=== PATIENT | female | born 1975 | race Caucasian/White ===

== ENCOUNTER 2019-06-25 07:57 | Outpatient (CLI) | payer OTHER, SELFPAY ==
--- NOTE | ~2019-06-25 | CT_ITS ---
EXAMINATION: CT soft tissue neck w con DATE: 06/25/2019 08:33 INDICATION: Left neck pain. Dysphagia. Neck mass. TECHNIQUE: Computed tomography (CT) of the neck was performed with 75 mL Omnipaque-350 intravenous co ntrast. Automated exposure control and iterative reconstruction technique were employed. The dose-adolfo gth product was 479.68 mGy-cm. COMPARISON: None FINDINGS: There are no pathologically enlarged lymph nodes. The cervical carotid arteries are normal. The oropharynx is normal. There is mild mucosal thickening in the ethmoid sinuses. There are carious lesions of teeth 1, 13, and 14. There are periapical lucencies at tooth 14. 15 is broken with periap ical lucencies. There is a carious lesion of tooth 16 with periapical lucencies. Tooth 17 is absent. Tooth 19 demonstrates a carious lesion and periapical lucencies. There is mild cervical spondylosis. IMPRESSION: 1. Dental disease. Reviewed, dictated and finalized at location A. ILL TALLY CLERK IMPRESSION: 1. Dental disease.
== END 2019-06-25 07:58 | disposition home or self-care (01) ==
DX: R22.1 Localized swelling, mass and lump, neck (principal); K08.9 Disorder of teeth and supporting structures, unspecified
CPT/HCPCS: 70491; Q9967

== ENCOUNTER 2020-06-15 07:40 | Outpatient (CLI) | payer OTHER, SELFPAY ==
--- NOTE | ~2020-06-15 | CT_ITS ---
EXAMINATION: CT abdomen pelvis w con EXAM DATE: 06/15/2020 09:29 INDICATION: Abdominal pain . TECHNIQUE: Spiral CT of the abdomen and pelvis was performed following intravenous injection of 100 m L Omnipaque 350. Axial, coronal and sagittal images were reviewed. The dose-length product (DLP) fo r this examination was 965.37 mGy-cm. The exposure was tailored according to patient size (auto mA e xposure control), and iterative reconstruction (ASIR) was used as additional dose reduction technique . There is no prior study for comparison. FINDINGS: The liver, spleen, adrenal glands and pancreas are unremarkable. Gallbladder is unremarkab le. No biliary obstruction. Portal and splenic veins are patent. Kidneys enhance symmetrically. T here is no hydronephrosis. The uterus is unremarkable. The bladder is unremarkable. There is no retroperitoneal or pelvic lymphadenopathy. There is mild scattered arteriosclerotic disease. The appendix is normal. The stomach and small bowel are unremarkable. There is expected amount of c olonic stool. No free intraperitoneal gas. The heart is normal in size. There are no pericardial or pleural effusions. The lung bases are unremarkable. There are no osteoblastic or osteolytic les ions identified. IMPRESSION: 1. No acute intra-abdominal findings. Reviewed, dictated and finalized at location A. [employer]
== END 2020-06-15 07:41 | disposition home or self-care (01) ==
PROVIDERS: PCP Nurse Practitioner Family; Visit Provider Obstetrics & Gynecology
DX: R10.9 Unspecified abdominal pain (principal)
CPT/HCPCS: 74177; Q9967

== ENCOUNTER 2020-11-20 15:57 | Emergency (ER) | payer OTHER, SELFPAY ==
[2020-11-20 16:08] VITALS: BP 140/82; PULSE 89; RESP 16; TEMP 37; O2SAT 100
--- NOTE | 2020-11-20 16:34 | ED.WOUNDLAC ---
HPI - Wound/Laceration General Chief Complaint: Wound/Laceration Stated Complaint: Cat bites Time Seen by Provider: 11/20/20 16:28 Source: patient and RN notes reviewed Mode of arrival: ambulatory Limitations: no limitations History of Present Illness HPI narrative: Patient presents today complaining of a cat bite to her right second finger that was sustained 4 hours prior to exam. Her own cat bit her while protecting it skins. Cat is up-to-date on vaccines. Patient was also bit on her left forearm and left thumb minorly. She is not up-to-date on her tetanus vaccine. She currently rates the pain in her right second finger 8/10 and has tried no interventions prior to arrival. Related Data Home Medications Medication Instructions Recorded Confirmed aspirin 81 mg PO DAILY 04/02/19 06/15/19 atorvastatin 10 mg PO DAILY 04/02/19 06/15/19 levothyroxine 11/20/20 medroxyprogesterone mg IM 11/20/20 Allergies Allergy/AdvReac Type Severity Reaction Status Date / Time indomethacin Allergy Unknown RASH Verified 06/15/19 17:12 methylprednisolone Allergy Unknown RASH Verified 06/15/19 17:12 Review of Systems Review of Systems: Narrative: CONSTITUTIONAL: Denies body aches, fever, chills, or sweats. EYES: Denies visual changes, redness, or discharge. ENT: Denies rhinorrhea, congestion, sore throat, or otalgia. CARDIOVASCULAR: Denies chest pain, palpitations, or edema. RESPIRATORY: Denies cough or dyspnea. GASTROINTESTINAL: Denies abdominal pain, nausea, vomiting, or diarrhea. GENITOURINARY: Denies dysuria or hematuria. SKIN: Denies rash, itching. + Cat bite MUSCULOSKELETAL: Denies back pain, or myalgia. NEUROLOGIC: Denies headache, numbness, tingling, or weakness. PSYCH: Denies depression or anxiety. [facility] Past Medical History Medical History (Updated 11/20/20 @ 16:37 by JEREMY Fernandez, ) Hypothyroidism Social History Social History Gender identity (if verbalized by the patient): Female Comments At time of signature, I have reviewed and agree with nursing past medical, surgical, social and family history unless otherwise noted. Please see nursing chart for further information. There is no relevant family history pertinent to the presenting complaint Exam Narrative: Exam Narrative: GENERAL: Well-appearing, well-nourished, and in no acute distress. HEAD: Normocephalic, atraumatic. EYES: EOMI. No redness or drainage. Conjunctivae normal. ENT: Mucous membranes pink and moist. NECK: Normal AROM. CHEST: No respiratory distress. EXTREMITIES: Normal range of motion. No edema. SKIN: Warm, dry, no rash. Capillary refill normal. Normal skin turgor. Minor scratch to left forearm and very superficial puncture wound to the left thumb. What seems to be superficial wounds to the dorsum and palmar aspects of the proximal phalanx of the right second finger. Right second finger is moderately edematous and erythematous and very painful to palpation. Distal sensation intact. Capillary refill normal. Range of motion is limited due to pain. NEURO: No focal deficits. Alert and oriented x3. Gait steady. PSYCH: Normal affect. No signs of depression or anxiety. Course Vital Signs Vital signs: Vital Signs Temperature 98.6 F 11/20/20 16:08 Pulse Rate 89 11/20/20 16:08 Respiratory Rate 16 11/20/20 16:08 Blood Pressure 140/82 11/20/20 16:08 Pulse Oximetry 100 11/20/20 16:08 Temperature 98.6 F 11/20/20 16:08 Pulse Rate 89 11/20/20 16:08 Respiratory Rate 16 11/20/20 16:08 Blood Pressure 140/82 11/20/20 16:08 Pulse Oximetry 100 11/20/20 16:08 Reviewed. Pt has been instructed to follow up with her PCP regarding her elevated blood pressure today. MDM - Wound/Laceration Differential Diagnosis Differential diagnosis: Likely laceration, abscess, avulsion of skin and other (Cat bite) Critical Care Time Critical Care Time Critic
[2020-11-20] MEDS: TETANUS,DIPHTHERIA,AC PERTUSSIS ADULT (0.5 ML) BOOSTRIX IM (16:41)
== END 2020-11-20 16:55 | disposition home or self-care (01) ==
PROVIDERS: Emergency Provider Nurse Practitioner; PCP Nurse Practitioner Family
DX: S61.250A Open bite of right index finger without damage to nail, initial encounter (principal); W55.01XA Bitten by cat, initial encounter; Z23 Encounter for immunization; E03.9 Hypothyroidism, unspecified; E78.00 Pure hypercholesterolemia, unspecified; I25.10 Atherosclerotic heart disease of native coronary artery without angina pectoris
CPT/HCPCS: 90471; 90715; 99213; G0463

== ENCOUNTER 2020-11-28 10:02 | Emergency (ER) | payer OTHER, SELFPAY ==
[2020-11-28 10:08] VITALS: BP 119/82; PULSE 92; RESP 18; TEMP 36.2; O2SAT 98
[2020-11-28 10:15] VITALS: BP 119/82; PULSE 92; RESP 18; TEMP 36.2; O2SAT 98
--- NOTE | 2020-11-28 10:24 | ED.URI ---
HPI - URI/Sore Throat General Chief Complaint: Upper Respiratory Infection Stated Complaint: Cough,Wheezing Time Seen by Provider: 11/28/20 10:14 Source: patient and RN notes reviewed Mode of arrival: ambulatory Limitations: no limitations History of Present Illness HPI Narrative: Patient presents today complaining of sneezing and runny nose that started 6 days ago. That has since mostly resolved. She has a cough and wheezing that started 4 days ago that is persisting. Denies fever, shortness of breath. She has since taken to home rapid COVID-19 test that were negative. States otherwise she feels fine. She has not been vaccinated against COVID-19. Reports history of reactive airway disease diagnosed by assigner. She has been occasionally using Vicks nasal inhaler as well as an albuterol inhaler without much relief. She is currently on day 8 of 10 of a course of Augmentin for cat bite. Patient states she goes camping in the [facility] every weekend. MD elicited complaint: cough Related Data Home Medications Medication Instructions Recorded Confirmed aspirin 81 mg PO DAILY 04/02/19 11/28/20 atorvastatin 10 mg PO DAILY 04/02/19 11/28/20 levothyroxine 150 mcg PO DAILY 11/20/20 11/28/20 medroxyprogesterone 150 mg IM [id number] 11/20/20 11/28/20 Allergies Allergy/AdvReac Type Severity Reaction Status Date / Time indomethacin Allergy Unknown RASH Verified 11/28/20 10:16 methylprednisolone Allergy Unknown RASH Verified 11/28/20 10:16 Review of Systems Review of Systems: Narrative: CONSTITUTIONAL: Denies body aches, fever, chills, or sweats. EYES: Denies visual changes, redness, or discharge. ENT: Denies rhinorrhea, congestion, sore throat, or otalgia. CARDIOVASCULAR: Denies chest pain, palpitations, or edema. RESPIRATORY: + Cough, wheezing GASTROINTESTINAL: Denies abdominal pain, nausea, vomiting, or diarrhea. GENITOURINARY: Denies dysuria or hematuria. SKIN: Denies rash, itching, or wounds. MUSCULOSKELETAL: Denies back pain, joint pain, or myalgia. NEUROLOGIC: Denies headache, numbness, tingling, or weakness. PSYCH: Denies depression or anxiety. [facility] Past Medical History Medical History (Updated 11/28/20 @ 10:28 by Ellen Roth, AUTO WHEEL ALIGNMENT SPECIALIST, ) High cholesterol Hypothyroidism Reactive airway disease Social History Social History (Updated 11/28/20 @ 10:26 by Ellen Roth, JEREMY, ) Smoking status: Current every day smoker Tobacco type: cigarettes Gender identity (if verbalized by the patient): Female Comments At time of signature, I have reviewed and agree with nursing past medical, surgical, social and family history unless otherwise noted. Please see nursing chart for further information. There is no relevant family history pertinent to the presenting complaint Exam Narrative: Exam Narrative: GENERAL: Well-appearing, well-nourished, and in no acute distress. HEAD: Normocephalic, atraumatic. EYES: EOMI. No redness or drainage. Conjunctivae normal. ENT: Mucous membranes pink and moist. Nares clear. No rhinorrhea. TMs normal bilaterally. Throat normal. Uvula midline. NECK: Normal AROM. Supple. No lymphadenopathy. CHEST: No respiratory distress. Slight inspiratory wheeze in the left upper lobe, otherwise clear. Frequent harsh cough noted. HEART: Regular rate and rhythm. No murmur appreciated. Normal peripheral pulses. EXTREMITIES: Normal range of motion. No edema. SKIN: Warm, dry, no rash. Capillary refill normal. Normal skin turgor. NEURO: No focal deficits. Alert and oriented x3. Gait steady. PSYCH: Normal affect. No signs of depression or anxiety. Course Vital Signs Vital signs: Vital Signs Temperature 97.1 F L 11/28/20 10:08 Pulse Rate 92 11/28/20 10:08 Respiratory Rate 18 11/28/20 10:08 Blood Pressure 119/82 11/28/20 10:08 Pulse Oximetry 98 11/28/20 10:08 Temperature 97.1 F L 11/28/20 10:15 Pulse Rate 92 11/28/20 10:15 Respiratory Rate 18 11/28/20 10
[2020-11-28] MEDS: IPRATROPIUM BR 0.02% INH SOLN 0.5 MG/2.5 ML VIAL INHALATION (10:30)
[2020-11-28] MEDS: ALBUTEROL SULFATE NEB 2.5 MG/3 ML INH INHALATION (10:30)
[2020-11-28 11:22] VITALS: PULSE 88; O2SAT 98
== END 2020-11-28 11:22 | disposition home or self-care (01) ==
PROVIDERS: Emergency Provider Nurse Practitioner; PCP Nurse Practitioner Family
DX: J40 Bronchitis, not specified as acute or chronic (principal); F17.210 Nicotine dependence, cigarettes, uncomplicated; E78.00 Pure hypercholesterolemia, unspecified; E03.9 Hypothyroidism, unspecified
CPT/HCPCS: 94640; 99213; G0463

== ENCOUNTER 2021-02-15 18:32 | Emergency (ER) | payer OTHER, SELFPAY ==
[2021-02-15 18:40] VITALS: BP 111/81; PULSE 88; RESP 16; TEMP 36.3; O2SAT 98
--- NOTE | 2021-02-15 20:11 | ED.SKABFB ---
HPI - Skin/Abscess/Foreign Bdy General Chief complaint: Skin/Abscess/Foreign Body Stated complaint: Rash Source: patient and RN notes reviewed Limitations: no limitations History of Present Illness HPI narrative: The patient, is on several medication, presents with skin eruption. Patient states she has about 1/2-week history of definitely pruritic, mostly flat skin eruption on her trunk; she believes this was preceded by a annular patch on her back-yet about over a month ago. No fever, oral lesions, URI?sinusitis, sore throat; symptoms are mild worse with scratching Related Data Home Medications Medication Instructions Recorded Confirmed aspirin 81 mg PO DAILY 04/02/19 11/28/20 atorvastatin 10 mg PO DAILY 04/02/19 11/28/20 levothyroxine 150 mcg PO DAILY 11/20/20 11/28/20 medroxyprogesterone 150 mg IM [id number] 11/20/20 11/28/20 Allergies Allergy/AdvReac Type Severity Reaction Status Date / Time indomethacin Allergy Unknown RASH Verified 11/28/20 10:16 Review of Systems Review of Systems: General/Constitutional: No weight loss,fever Eyes: N0: Redness,discharge Ears/Nose/Throat: No: Epistaxis,ear discharge Respiratory: Denies: Hemoptysis Gastrointestinal: No Vomiting, Bleeding-rectal Skin: No Lumps, REPORTS eruption Neurologic: No Focal Weakness,Sz Hematologic: Denies: Petechiae/Purpura Psychiatric: No: Suicida ideationl All Other Systems: Reviewed and Negative PMFSH Past Medical History Medical History (Updated 02/16/21 @ 00:00 by Jamaal Maldonado) High cholesterol Hypothyroidism Reactive airway disease Social History Social History (Updated 11/28/20 @ 10:26 by Ellen Roth, [facility], ) Smoking status: Current every day smoker Tobacco type: cigarettes Gender identity (if verbalized by the patient): Female Comments At time of signature, agree with nursing past medical, surgical, social and family history. There is no relevant family history pertinent to the presenting complaint Exam Narrative: General Appearance: well nourished/ overweight, Cooperative Head: Normocephalic Eye: PERRLA, Conjunctiva clear Ear: External ear normal Nose: Normal nose, Nare clear Mouth/Throat: Normal appearing Neck Exam: Supple Respiratory: Airway patent, No respiratory distress Musculoskeletal: Moves all extremities, Non tender Spine/Back: Normal ROM annular ?herald patch with central clearing Skin: Warm, Dry, salmon colored small, papulosquamous skin eruption of mostly trunk Neurological: A&O x3 Psychiatric: Normal mood, Normal affect Course Vital Signs Vital signs: Vital Signs Temperature 97.4 F L 02/15/21 18:40 Pulse Rate 88 02/15/21 18:40 Respiratory Rate 16 02/15/21 18:40 Blood Pressure 111/81 02/15/21 18:40 Pulse Oximetry 98 02/15/21 18:40 Temperature 97.4 F L 02/15/21 18:40 Pulse Rate 88 02/15/21 18:40 Respiratory Rate 16 02/15/21 18:40 Blood Pressure 111/81 02/15/21 18:40 Pulse Oximetry 98 02/15/21 18:40 Discharge Plan Discharge Clinical Impression: Pruritic dermatitis Patient Disposition: Home, Self-Care Condition: Stable Instructions: Tinea Corporis (ED), Pityriasis rosea (ED) Prescriptions: New azithromycin 250 mg tablet See Rx Instructions .ROUTE .COMPLEX Qty: 6 RF: 0 fluconazole 150 mg tablet 150 mg PO WEEKLY Qty: 2 RF: 1 methylprednisolone [Medrol ([place])] 4 mg tablets,dose pack See Rx Instructions .ROUTE .COMPLEX Qty: 21 RF: 0 No Action atorvastatin 10 mg tablet 10 mg PO DAILY RF: 0 aspirin 81 mg Tablet,Chewable 81 mg PO DAILY RF: 0 prednisone 50 mg tablet 50 mg PO DAILY 5 Days Qty: 5 RF: 0 albuterol sulfate [ProAir HFA] 90 mcg/actuation HFA aerosol inhaler 2 puff INHALATION Q4-6H PRN (Reason: Shortness Of Breath Or Wheezing) Qty: 18 RF: 0 levothyroxine 150 mcg tablet 150 mcg PO DAILY RF: 0 medroxyprogesterone 150 mg/mL suspension 150 mg IM [id number] RF: 0
== END 2021-02-15 20:18 | disposition home or self-care (01) ==
PROVIDERS: Emergency Provider Emergency Medicine; PCP Nurse Practitioner Family
DX: L30.8 Other specified dermatitis (principal); E03.9 Hypothyroidism, unspecified; F17.200 Nicotine dependence, unspecified, uncomplicated; Z79.82 Long term (current) use of aspirin
CPT/HCPCS: 99213; G0463

== ENCOUNTER 2021-05-19 13:45 | Outpatient (CLI) | payer OTHER, SELFPAY ==
--- NOTE | ~2021-05-19 | MMUS_ITS ---
EXAMINATION: MM diagnostic rosendo BI w sharron, US breast RT complete HISTORY: Right breast pain TECHNIQUE: Additional 3-D tomosynthesis images of the breasts were performed and synthetic 2-D images were generated. CAD analysis was submitted and interpreted. High resolution right complete breast ul trasound was performed. COMPARISON: Comparison to multiple prior studies sequentially, with oldest reviewed study dated 12/2014. BREAST PARENCHYMAL COMPOSITION: The breasts are heterogenously dense, which may obscure small masses FINDINGS: MAMMOGRAPHIC FINDINGS: There are no suspicious masses, calcifications or architectural distortion in either breast to sugges t malignancy. ULTRASOUND: Complete bilateral US of all 4 quadrants of the the right breast and retroareolar region was reviewed . ML heterogeneous echotexture without focal solid or cystic mass. IMPRESSION: 1. No evidence for malignancy in either breast. 2. Routine yearly screening mammogram and regular clinical breast examination are recommended. BI-RADS Category 1: Negative Reviewed, dictated and finalized at location A. SIT VEHICLE INSPECTOR IMPRESSION: 1. No evidence for malignancy in either breast. 2. Routine yearly screening mammogram and regular clinical breast examination a re recommended. BI-RADS Category 1: Negative
== END 2021-05-19 13:46 | disposition home or self-care (01) ==
LOC: ANHIMG 13:47
PROVIDERS: PCP Nurse Practitioner Family; Visit Provider Nurse Practitioner Obstetrics & Gynecology
DX: N64.4 Mastodynia (principal)
CPT/HCPCS: 76641; 77062; 77066; G0279

== ENCOUNTER 2021-09-02 19:45 | Emergency (ER) | payer OTHER, SELFPAY ==
--- NOTE | 2021-09-02 19:48 | ED.GENADULT ---
HPI - General Adult General Chief complaint: Animal Bite Stated complaint: insect bite Time Seen by Provider: 09/02/21 19:48 Source: patient, RN notes reviewed and old records reviewed Mode of arrival: ambulatory Limitations: no limitations History of Present Illness HPI narrative: 45-year-old female presents to the [facility] with 4 itchy circular areas that appeared approximately 1 hour ago when watching her son play basketball outside. All 4 circular areas on the volar aspect left arm 3 in the lower one on the bicep area. Areas are blanchable, pink, not red or hot to touch. No treatment prior to arrival No swelling. Full range of motion of the extremity. Positive radial pulse. Capillary refill under 2 seconds Related Data Home Medications Medication Instructions Recorded Confirmed aspirin 81 mg PO DAILY 04/02/19 11/28/20 atorvastatin 10 mg PO DAILY 04/02/19 11/28/20 levothyroxine 150 mcg PO DAILY 11/20/20 11/28/20 medroxyprogesterone 150 mg IM [id number] 11/20/20 11/28/20 Allergies Allergy/AdvReac Type Severity Reaction Status Date / Time indomethacin Allergy Unknown RASH Verified 11/28/20 10:16 Review of Systems Review of Systems: All systems reviewed & are unremarkable except as noted in HPI and below Constitutional: Constitutional: Reports no additional constitutional complaints, Denies chills and Denies fever(s) Eyes: Eyes: Reports no additional eye complaints ENT: Reports system reviewed and no additional complaints, except as documented Cardiovascular: Cardiovascular: Reports no additional cardiovascular complaints and Denies chest pain Respiratory: Respiratory: Reports no additional respiratory complaints, Denies cough, Denies dyspnea and Denies wheezing Gastrointestinal: Gastrointestinal: Reports no additional gastrointestinal complaints and Denies abdominal pain Musculoskeletal: Musculoskeletal: Reports no additional musculoskeletal complaints Integumentary/Breasts: Skin/Breast: Reports as per HPI and Reports rash (Left arm) Neurologic: Reports system reviewed and no additional complaints, except as documented Psychiatric: Psychiatric: Reports no additional psychiatric complaints Allergic/Immunologic: Allergic/Immunologic: Reports no additional allergic/immunologic complaints PMFSH Past Medical History Medical History High cholesterol Hypothyroidism Reactive airway disease Social History Social History Smoking status: Current every day smoker Tobacco type: cigarettes Gender identity (if verbalized by the patient): Female Comments At the time of my signature, I reviewed and agree with the nursing past medical, surgical, social, and family history. There is no relevant family history pertinent to the patient complaint. Exam Const: General: healthy appearing, no acute distress and alert Nutritional Appearance: well nourished Orientation/consciousness: patient oriented x3 Limitations: no limitations HENMT: Head: normal to inspection Ears: external ears normal and EAC's normal General nose exam: Normal external nose present and Normal nasal mucous membranes and turbinates present Face and sinus: normal facial exam and face symmetric Mouth: Yes lip normal and Yes moist mucous membranes Throat: posterior oropharynx normal Eyes: Conjunctivae: conjunctivae normal Pupils: Equal, round and reactive pupils present Neck: Neck: normal visual inspection, no lymphadenopathy and no meningeal signs Chest: Chest palpation & inspection: normal inspection of the chest Resp: Effort & Inspection: normal respiratory effort and no use of accessory muscles Auscultation: clear to auscultation bilaterally, no crackles, no rales, no rhonchi and no wheezes Cardio: Rate: regular rate Rhythm: regular rhythm Skin: General skin exam: normal color Rashes: rashes noted (voler arm, 4 hives) hiv
[2021-09-02 19:51] VITALS: BP 138/83; PULSE 88; RESP 16; TEMP 36.1; O2SAT 99
== END 2021-09-02 20:05 | disposition home or self-care (01) ==
PROVIDERS: Emergency Provider Nurse Practitioner
DX: L50.9 Urticaria, unspecified (principal); E78.00 Pure hypercholesterolemia, unspecified; E03.9 Hypothyroidism, unspecified; F17.210 Nicotine dependence, cigarettes, uncomplicated; Z79.82 Long term (current) use of aspirin
CPT/HCPCS: 99213; G0463

== ENCOUNTER 2021-11-19 08:02 | Emergency (ER) | payer OTHER, SELFPAY ==
[2021-11-19 08:10] VITALS: BP 119/77; PULSE 86; RESP 16; TEMP 37.4; O2SAT 99
[2021-11-19 08:12] VITALS: BP 119/77; PULSE 86; RESP 16; TEMP 37.4; O2SAT 99
--- NOTE | 2021-11-19 08:24 | ED.SKABFB ---
HPI - Skin/Abscess/Foreign Bdy General Chief complaint: Skin/Abscess/Foreign Body Stated complaint: Swelling on the Face Time Seen by Provider: 11/19/21 08:20 Source: patient and RN notes reviewed Mode of arrival: ambulatory Limitations: no limitations History of Present Illness HPI narrative: 46-year-old female presents with concern for an area on her right upper lip that is painful. Reports it started 2 days ago and has become more painful. She also feels like her right sided lymph nodes are slightly swollen and tender. She denies upper respiratory symptoms, nasal congestion, rhinorrhea, sore throat or cough. She denies fever, bodies, chills, sweats. Denies generally swollen lips, swollen tongue, trouble breathing. Denies rash anywhere. She denies history of cold sores MD complaint: lesion Related Data Home Medications Medication Instructions Recorded Confirmed aspirin 81 mg chewable tablet 81 mg PO DAILY 04/02/19 11/19/21 atorvastatin 10 mg tablet 10 mg PO DAILY 04/02/19 11/19/21 levothyroxine 150 mcg tablet 150 mcg PO DAILY 11/20/20 11/19/21 medroxyprogesterone 150 mg/mL 150 mg IM [id number] 11/20/20 11/19/21 intramuscular suspension Allergies Allergy/AdvReac Type Severity Reaction Status Date / Time indomethacin Allergy Unknown RASH Verified 11/19/21 08:10 Review of Systems Review of Systems: CONSTITUTIONAL: Denies malaise, chills, sweats, or fever. EYES: Denies visual changes, redness, or discharge. ENT: Denies rhinorrhea, congestion, sinus pain, otalgia or sore throat. CARDIOVASCULAR: Denies chest pain, palpitations, or edema. RESPIRATORY: Denies cough or dyspnea. SKIN: Reports a painful spot on her right upper lip MUSCULOSKELETAL: Denies myalgia. NEUROLOGIC: Denies headache. All systems reviewed & are unremarkable except as noted in HPI and below PMFSH Past Medical History Medical History High cholesterol Hypothyroidism Reactive airway disease Social History Social History Smoking status: Current every day smoker Tobacco type: cigarettes Gender identity (if verbalized by the patient): Female Comments At time of signature, agree with nursing past medical, surgical, social and family history. There is no relevant family history pertinent to the presenting complaint Exam Narrative: GENERAL: Well-appearing, well-nourished, and in no acute distress. HEAD: Normocephalic, atraumatic. EYES: PERRLA, conjunctivae clear, and EOMI. ENT: Mucous membranes moist. Oropharynx without edema, erythema or lesions. NECK: Supple. No lymphadenopathy CHEST: Clear to auscultation. No respiratory distress. HEART: Regular rate and rhythm. SKIN: Warm, dry. 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 No other rash noted NEURO: Alert and oriented x3. PSYCH: Normal mood and affect Course Course Emergency Course: Patient is aware of diagnosis, understands and agrees to treatment plan. Anticipatory guidance given. Patient agrees to follow-up as directed and is aware of reasons to seek care at the emergency department. Portions of this record may have been created with voice recognition software Level of Care: Express Care Visit Vital Signs Vital signs: Vital Signs Temperature 99.3 F 11/19/21 08:10 Pulse Rate 86 11/19/21 08:10 Respiratory Rate 16 11/19/21 08:10 Blood Pressure 119/77 11/19/21 08:10 Pulse Oximetry 99 11/19/21 08:10 Oxygen Delivery Room Air 11/19/21 08:10 Temperature 99.3 F 11/19/21 08:12 Pulse Rate 86 11/19/21 08:12 Respiratory Rate 16 11/19/21 08:12 Blood Pressure 119/77 11/19/21 08:12 Pulse Oximetry 99 11/19/21 08:12 Oxygen Delivery Room Air 11/19/21 08:12 Reviewed. MDM - Skin/Abscess/Foreign Bdy MDM Narrative Medical decision making narrative: Does not appear at this
== END 2021-11-19 08:33 | disposition home or self-care (01) ==
PROVIDERS: Emergency Provider Nurse Practitioner; PCP Nurse Practitioner Family
DX: B00.1 Herpesviral vesicular dermatitis (principal); F17.210 Nicotine dependence, cigarettes, uncomplicated; E78.00 Pure hypercholesterolemia, unspecified; E03.9 Hypothyroidism, unspecified; J45.909 Unspecified asthma, uncomplicated; Z79.82 Long term (current) use of aspirin
CPT/HCPCS: 99213; G0463

== ENCOUNTER 2022-04-07 08:03 | Emergency (ER) | payer OTHER, SELFPAY ==
--- NOTE | 2022-04-07 08:06 | ED.URI ---
HPI - URI/Sore Throat General Chief Complaint: Upper Respiratory Infection Stated Complaint: Cough Time Seen by Provider: 04/07/22 08:05 Source: patient Mode of arrival: ambulatory Limitations: no limitations History of Present Illness HPI Narrative: Harmony is a 46-year-old female patient presenting to clinic today with complaints of a cough, sinus drainage, sinus pressure x3 weeks. She reports she is coughing up green phlegm in the morning. Denies any fever or chills currently MD elicited complaint: cough Related Data Home Medications Medication Instructions Recorded Confirmed aspirin 81 mg chewable tablet 81 mg PO DAILY 04/02/19 11/19/21 atorvastatin 10 mg tablet 10 mg PO DAILY 04/02/19 11/19/21 levothyroxine 150 mcg tablet 150 mcg PO DAILY 11/20/20 11/19/21 medroxyprogesterone 150 mg/mL 150 mg IM [id number] 11/20/20 11/19/21 intramuscular suspension Allergies Allergy/AdvReac Type Severity Reaction Status Date / Time indomethacin Allergy Unknown RASH Verified 04/07/22 08:16 Review of Systems Review of Systems: Pertinent positives per HPI. Patient denies any fever, chills, rash, headache, visual changes, dizziness, shortness of breath, chest pain, palpitations, nausea, vomiting, diarrhea, constipation, abdominal pain, or any urinary issues. [facility] Past Medical History Medical History High cholesterol Hypothyroidism Reactive airway disease Social History Social History Smoking status: Current every day smoker Tobacco type: cigarettes Gender identity (if verbalized by the patient): Female Comments At the time of my signature, I reviewed and agree with the nursing past medical, surgical, social, and family history. There is no relevant family history pertinent to the patient complaint. Exam Narrative: General: Well-developed, well nourished, in no apparent distress Head: Normocephalic, atraumatic Eyes: Pupils equally round and reactive to light bilaterally, EOM intact, sclera and conjunctive clear, no discharge, lids normal Ears: TMs intact and clear, ear canals clear, no drainage, grossly hearing normal. Nose: Nares patent, green nasal discharge, severe inflammation, ethmoid and maxillary sinus tenderness. Mouth: Oral pharynx without lesions or masses, good dentition, MMM. postnasal drip Neck: Supple, trachea midline, no enlargement of anterior or posterior cervical nodes, no thyroid masses or goiter palpable. Cardio: Regular rate and rhythm, s1 and s2 normal, no murmur appreciated. Resp: Clear to auscultation bilaterally, no rhonchi, rales, wheezing or rubs Course Course Emergency Course: Portions of this record may have been created with voice recognition software. Level of Care: Express Care Visit Vital Signs Vital signs: Vital signs reviewed MDM - URI/Sore Throat MDM Narrative Medical decision making narrative: At the time of visit patient is resting comfortably on the exam table. I suspect patient has acute bacterial rhinosinusitis. Prescription for Augmentin and prednisone was sent to pharmacy. Supportive measures were discussed with the patient she voiced understanding of discharge instructions and agrees to treatment plan Differential Diagnosis Differential diagnosis: Likely upper respiratory infection, otitis media, sinusitis, viral infection, bronchitis, influenza, pharyngitis and other (Covid) Discharge Plan Discharge Clinical Impression: Acute bacterial rhinosinusitis Patient Disposition: Home, Self-Care Condition: Stable Instructions: Antibiotic Form, Rhinosinusitis (ED) Additional Instructions: Take prescription medications only as prescribed- Augmentin and prednisone Increase fluids and stay well hydrated Tylenol/motrin for pain/fever Flonase and OTC antihistamines as directed Vicks vapor rub to open sinuses Sinus rinses
[2022-04-07 08:11] VITALS: BP 127/84; PULSE 78; RESP 18; TEMP 36.8; O2SAT 99
== END 2022-04-07 08:20 | disposition home or self-care (01) ==
PROVIDERS: Emergency Provider Nurse Practitioner Family; PCP Nurse Practitioner Family
DX: J01.90 Acute sinusitis, unspecified (principal); F17.210 Nicotine dependence, cigarettes, uncomplicated; E78.00 Pure hypercholesterolemia, unspecified; E03.9 Hypothyroidism, unspecified; Z79.82 Long term (current) use of aspirin; J45.909 Unspecified asthma, uncomplicated
CPT/HCPCS: 99213; G0463

== ENCOUNTER 2022-06-17 08:45 | Outpatient (CLI) | payer OTHER, SELFPAY ==
--- NOTE | ~2022-06-17 | DEXA_ITS ---
Bone Density Report Name: DELMA KHAN Age: 46 Sex: Female Ethnicity: White Date of : 1975 Indication: postmenopausal; Referring Provider: Argenis MAURER Study: Bone densitometry was performed. Exam Date: June 17, 2022 Accession number: [id number] Bone Density: Region BMD T-score Z-score Classification AP Spine(L1-L4) 1.154 1.0 1.5 Normal Femoral Neck (Left) 0.976 1.1 1.7 Normal Total Hip (Left) 1.138 1.6 1.9 Normal Femoral Neck (Right) 1.044 1.8 2.3 Normal Total Hip (Right) 1.174 1.9 2.2 Normal Total Hip Mean 1.156 1.8 2.1 Normal World Health Organization criteria for BMD impression classify patients as: Normal (T-score at or above -1.0), Osteopenia (T-score between -1.0 and -2.5), or Osteoporosis (T-score at or below -2.5). 10-year Fracture Risk: FRAX not reported because: All T-scores for Spine Total, Hip Total, Femoral Neck at or above -1.0 Clinical Information Provided by Patient: Smokes Patient maximum height was 69 Drinks caffeinated beverages Onset of menses at age 13 Number of children 3 Impression: The patient has normal bone mass. The patient has risk factors, including: smoking. Discussion: BONE DENSITY IS ABOVE THE MINIMUM DESIRABLE LEVEL AT ALL SKELETAL SITES TESTED. This patient?s bone mineral density is above the minimum desirable level (T-score -1.0 or better) at all sites measured. The patient should follow a healthful lifestyle (good nutrition with adequate calcium and vitamin D, and appropriate weight-bearing exercise). Follow-Up: Consider repeating this study in 5 years or sooner if there is some new clinical indication. Reported by: AIXA on 06/17/2022 9:10:00 AM. Reviewed, dictated and finalized at location AFarzaneh GANN
== END 2022-06-17 08:46 | disposition home or self-care (01) ==
LOC: ANHIMG 08:45
PROVIDERS: PCP Nurse Practitioner Family; Visit Provider Obstetrics & Gynecology
DX: Z79.3 Long term (current) use of hormonal contraceptives (principal)
CPT/HCPCS: 77080

== ENCOUNTER 2022-09-16 09:16 | Outpatient (CLI) | payer OTHER, SELFPAY ==
--- NOTE | ~2022-09-16 | MM_ITS ---
EXAMINATION: MM screening rosendo BI w sharron HISTORY: Screening mammogram TECHNIQUE: Craniocaudal and mediolateral oblique 3-D tomosynthesis images were obtained and synthetic 2-D images were generated. CAD analysis was submitted and interpreted. COMPARISON: 05/19/2021 diagnostic bilateral mammogram and complete right breast ultrasound examinatio n 08/24/2018, 04/28/2015 bilateral screening mammogram examinations BREAST PARENCHYMAL COMPOSITION: The breasts are heterogeneously dense, which may obscure small masses . FINDINGS: Biopsy marker on the left; history of prior benign left breast biopsy. There is no evidence of suspicious mass, calcification, or architectural distortion to suggest malignancy in either breas t. There has been no suspicious interval change. IMPRESSION: 1. No mammographic evidence of malignancy. 2. Recommend routine screening mammography in one year. BI-RADS Category 1: Negative Reviewed, dictated and finalized at location A.
== END 2022-09-16 09:17 | disposition home or self-care (01) ==
LOC: ANHIMG 09:17
PROVIDERS: PCP Nurse Practitioner Family; Visit Provider Obstetrics & Gynecology
DX: Z12.31 Encounter for screening mammogram for malignant neoplasm of breast (principal)
CPT/HCPCS: 77063; 77067

== ENCOUNTER 2022-09-21 11:32 | Outpatient (CLI) | payer OTHER, SELFPAY ==
--- NOTE | ~2022-09-21 | US_ITS ---
EXAMINATION: US axilla LT HISTORY: Palpable lump of the left axilla TECHNIQUE: Targeted ultrasound of the left axilla was performed. FINDINGS: No suspicious cystic or solid mass is identified. There are normal appearing left axillary lymph nodes. IMPRESSION: No specific sonographic correlate is identified for the reported palpable abnormality of concern. Fur ther evaluation at this time should be based on clinical assessment. Continued follow-up physical exa mination is recommended. BI-RADS Category 1: Negative Reviewed, dictated and finalized at location A. IMPRESSION: No specific sonographic correlate is identified for the reported palpable abnor mality of concern. Further evaluation at this time should be based on clinical assessment. Continued follow-up physical examination is recommended. BI-RADS Category 1: Negative
== END 2022-09-21 11:33 | disposition home or self-care (01) ==
PROVIDERS: PCP Nurse Practitioner Family; Visit Provider Obstetrics & Gynecology
DX: N63.20 Unspecified lump in the left breast, unspecified quadrant (principal)
CPT/HCPCS: 76882

== ENCOUNTER 2022-12-03 00:19 | Emergency (ER) | payer OTHER, SELFPAY ==
--- NOTE | ~2022-12-03 | XR_ITS ---
XR ankle LT min 3V DATE: 12/03/2022 00:52 INDICATION: Pain and swelling of left ankle TECHNIQUE: 4 views COMPARISON: None FINDINGS: Os subfibular artery accessory ossicle, normal variant. No fracture or dislocation of the ankle or disruption of the ankle mortise is detected. No periosteal reaction or bone destruction. IMPRESSION: No significant abnormality. No fracture or dislocation, periosteal reaction or bone destr uction Reviewed, dictated and finalized at location A. IMPRESSION: No significant abnormality. No fracture or dislocation, periosteal reaction or bone destruction
[2022-12-03 00:22] VITALS: BP 160/74; PULSE 95; RESP 15; TEMP 36.6; O2SAT 100
--- NOTE | 2022-12-03 01:12 | ED.LOWEXIN ---
HPI - Extremity Injury (Lower) General Chief Complaint: Extremity Injury, Lower Stated Complaint: knot/lump on left ankle Time Seen by Provider: 12/03/22 00:25 Source: patient Mode of arrival: ambulatory Limitations: no limitations History of Present Illness HPI Narrative: 47-year-old with a history of hypothyroidism, hyperlipidemia here with a complaint of pain and swelling around the left ankle for the last few days noticed a small swelling around the left ankle. She denies any trauma Place: home Severity: mild Relieving factors: nothing Exacerbating factors: nothing Associated symptoms: swelling Other symptoms: none Related Data Home Medications Medication Instructions Recorded Confirmed aspirin 81 mg chewable tablet 81 mg PO DAILY 04/02/19 04/07/22 atorvastatin 10 mg tablet 10 mg PO DAILY 04/02/19 04/07/22 levothyroxine 150 mcg tablet 150 mcg PO DAILY 11/20/20 04/07/22 medroxyprogesterone 150 mg/mL 150 mg IM [id number] 11/20/20 04/07/22 intramuscular suspension Allergies Allergy/AdvReac Type Severity Reaction Status Date / Time indomethacin Allergy Unknown RASH Verified 12/03/22 00:24 Review of Systems Review of Systems: All systems reviewed & are unremarkable except as noted in HPI and below Constitutional: Constitutional: Reports no additional constitutional complaints Eyes: Eyes: Reports no additional eye complaints ENT: Reports system reviewed and no additional complaints, except as documented Cardiovascular: Cardiovascular: Reports no additional cardiovascular complaints Respiratory: Respiratory: Reports no additional respiratory complaints Gastrointestinal: Gastrointestinal: Reports no additional gastrointestinal complaints Musculoskeletal: Musculoskeletal: Reports as per HPI Integumentary/Breasts: Skin/Breast: Reports system reviewed and no additional complaints, except as docu Neurologic: Reports system reviewed and no additional complaints, except as documented Psychiatric: Psychiatric: Reports no additional psychiatric complaints Endocrine: Endocrine: Reports no additional endocrine complaints PMFSH Past Medical History Medical History High cholesterol Hypothyroidism Reactive airway disease Social History Social History Smoking status: Current every day smoker Tobacco type: cigarettes Gender identity (if verbalized by the patient): Female Exam Narrative: GENERAL: Well-appearing, well-nourished, and in no acute distress. HEAD: Normocephalic, atraumatic. EYES: PERRLA and EOMI. ENT: Nares clear, no rhinorrhea or epistaxis. Mucous membranes moist. NECK: Supple. CHEST: Clear to auscultation. No respiratory distress. HEART: Regular rate and rhythm. No murmur heard. Normal peripheral pulses. Musculoskeletal examination of the left ankle shows a small soft tissue cystic swelling on the medial aspect about 0.5cms SKIN: Warm, dry, no rash. NEURO: No focal deficits. Alert and oriented x3. PSYCH: Normal mood and affect. Course Course Emergency Course: X-ray of the ankle showed no evidence of any fracture dislocation Vital Signs Vital signs: Vital Signs Temperature 36.6 C 12/03/22 00:22 Pulse Rate 95 12/03/22 00:22 Respiratory Rate 15 12/03/22 00:22 Blood Pressure 160/74 H 12/03/22 00:22 Pulse Oximetry 100 12/03/22 00:22 Oxygen Delivery Room Air 12/03/22 00:22 Temperature 36.6 C 12/03/22 00:22 Pulse Rate 95 12/03/22 00:22 Respiratory Rate 15 12/03/22 00:22 Blood Pressure 160/74 H 12/03/22 00:22 Pulse Oximetry 100 12/03/22 00:22 Oxygen Delivery Room Air 12/03/22 00:22 MDM - Extremity Injury (Lower) Imaging Data My impression: No fracture or dislocation Discharge Plan Discharge Clinical Impression: Ganglion cyst Patient Disposition: Home, Self-Care Condition: Stable Instructions: Ganglion Cyst
[2022-12-03 01:45] VITALS: BP 144/68; PULSE 88; RESP 15; O2SAT 100
== END 2022-12-03 01:46 | disposition home or self-care (01) ==
PROVIDERS: Emergency Provider Family Medicine; PCP Nurse Practitioner Family
DX: M67.472 Ganglion, left ankle and foot (principal); E03.9 Hypothyroidism, unspecified; E78.5 Hyperlipidemia, unspecified; F17.200 Nicotine dependence, unspecified, uncomplicated
CPT/HCPCS: 73610; 99283

== ENCOUNTER 2023-09-05 12:44 | Outpatient (CLI) | payer OTHER, SELFPAY ==
--- NOTE | ~2023-09-05 | MMUS_ITS ---
EXAMINATION: MM diagnostic rosendo BI w sharron, US breast RT complete HISTORY: Nipple burning. TECHNIQUE: Additional 3-D tomosynthesis images of the breasts were performed and synthetic 2-D images were generated. CAD analysis was submitted and interpreted. High resolution complete right breast ul trasound was performed. COMPARISON: Comparison to multiple prior studies sequentially, with oldest reviewed study dated 09/2018. BREAST PARENCHYMAL COMPOSITION: Dense: The breasts are heterogeneously dense, which may obscure small masses FINDINGS: MAMMOGRAPHIC FINDINGS: The breasts are stable. No suspicious masses, calcifications or architectural distortion in either br east to suggest malignancy. ULTRASOUND: Complete US of all 4 quadrants of the right breast and retroareolar region was reviewed. At 3:00, 2 c m from the nipple, there is a cluster of microcysts measuring 6 mm. At 8:00, 4 cm from the nipple, th ere is a 5 mm cyst. No suspicious masses in the right breast to suggest malignancy. IMPRESSION: 1. No evidence for malignancy in either breast. Benign findings. 2. Routine yearly screening mammogram and regular clinical breast examination are recommended. BI-RADS Category 2: Benign finding(s). Reviewed, dictated and finalized at location B. IMPRESSION: 1. No evidence for malignancy in either breast. Benign findings. 2. Routine yearly screening mammogram and regular clinical breast examination a re recommended. BI-RADS Category 2: Benign finding(s).
== END 2023-09-05 12:45 | disposition home or self-care (01) ==
PROVIDERS: PCP Nurse Practitioner Family; Visit Provider Nurse Practitioner Obstetrics & Gynecology
DX: N64.4 Mastodynia (principal); N60.19 Diffuse cystic mastopathy of unspecified breast
CPT/HCPCS: 76641; 77062; 77066; G0279

== ENCOUNTER 2024-01-10 09:25 | Emergency (ER) | payer OTHER, SELFPAY ==
[2024-01-10 09:32] VITALS: BP 131/71; PULSE 77; RESP 20; TEMP 36.6; O2SAT 95
--- NOTE | 2024-01-10 09:59 | ED.EYEPROB ---
HPI - Eye Problem General Chief complaint: Eye Problems Stated complaint: Left Eye Irritation Time Seen by Provider: 01/10/24 10:00 Source: patient, RN notes reviewed and old records reviewed Mode of arrival: ambulatory Limitations: no limitations History of Present Illness HPI Narrative: Patient presents with complaints of redness to the left eye. She reports that this was present upon awakening this morning. She denies any injury or trauma. She denies any excessive straining. She denies any heavy lifting. She denies any itching. Denies any visual disturbance. Wears glasses at baseline, does not use contact lenses. She reports that there is no drainage, itching, pain. Only redness Related Data Home Medications Medication Instructions Recorded Confirmed aspirin 81 mg chewable tablet 81 mg PO DAILY 04/02/19 01/10/24 atorvastatin 10 mg tablet 10 mg PO DAILY 04/02/19 01/10/24 levothyroxine 150 mcg tablet 150 mcg PO DAILY 11/20/20 01/10/24 nitroglycerin 0.4 mg sublingual 0.4 mg sublingual DIRECTED 01/10/24 01/10/24 tablet Allergies Allergy/AdvReac Type Severity Reaction Status Date / Time indomethacin Allergy Unknown RASH Verified 01/10/24 09:36 Review of Systems Review of Systems: All systems reviewed & are unremarkable except as noted in HPI and below Constitutional: Constitutional: Reports no additional constitutional complaints Eyes: Eyes: Reports as per HPI, Denies blurry vision, Denies change in vision, Denies eye discharge, Denies dry eyes, Denies irritation, Denies loss of peripheral vision, Denies loss of vision, Reports requires corrective lenses and Reports other (redness to left eye) ENT: Reports system reviewed and no additional complaints, except as documented Cardiovascular: Cardiovascular: Reports no additional cardiovascular complaints Respiratory: Respiratory: Reports no additional respiratory complaints Gastrointestinal: Gastrointestinal: Reports no additional gastrointestinal complaints [facility] Past Medical History Medical History High cholesterol Hypothyroidism Reactive airway disease Social History Social History Smoking status: Current every day smoker Tobacco type: cigarettes Gender identity (if verbalized by the patient): Female Comments At the time of my signature, I reviewed and agree with the nursing past medical, surgical, social, and family history. There is no relevant family history pertinent to the patient complaint. Exam Const: General: cooperative, no acute distress, alert and awake Orientation/consciousness: oriented to person, oriented to place and oriented to time HENMT: Head: normal to inspection Eyes: Visual Carrasco: normal visual carrasco by confrontation Alignment and Position: alignment normal Periorbital: periorbital findings normal Eyelids: eyelids normal Conjunctivae: conjunctival abnormality left subconjunctival hemorrhage Resp: Effort & Inspection: normal respiratory effort and able to speak in complete sentences Auscultation: clear to auscultation bilaterally, no crackles, no rales, no rhonchi and no wheezes Cardio: Palpation: normal PMI Rate: regular rate Rhythm: regular rhythm Heart sounds: S1 normal heart sound present and S2 normal heart sound present Neuro: General: oriented to person, oriented to place and oriented to time Cranial nerves: Yes CN's II-XII intact bilaterally Psych: Appearance: grossly normal Thought process: Normal thought process present Insight: Good insight present (Psych) Judgement: Good judgement present (Psych) Course Course Level of Care: Express Care Visit Vital Signs Vital signs: Vital Signs Temperature 97.9 F 01/10/24 09:32 Pulse Rate 77 01/10/24 09:32 Respiratory Rate 20 01/10/24 09:32 Blood Pressure 131/71 01/10/24 09:32 Pulse Oximetry 95 01/10/24 09:32 Oxygen Deliver
== END 2024-01-10 10:15 | disposition home or self-care (01) ==
PROVIDERS: Emergency Provider Nurse Practitioner Family; PCP Nurse Practitioner Family
DX: H11.32 Conjunctival hemorrhage, left eye (principal); F17.210 Nicotine dependence, cigarettes, uncomplicated; E78.00 Pure hypercholesterolemia, unspecified; E03.9 Hypothyroidism, unspecified; J45.909 Unspecified asthma, uncomplicated; Z79.82 Long term (current) use of aspirin
CPT/HCPCS: 99212; G0463

== ENCOUNTER 2024-11-26 17:41 | Emergency (ER) | payer OTHER, SELFPAY ==
[2024-11-26 17:45] VITALS: BP 131/81; PULSE 79; RESP 16; TEMP 36.3; O2SAT 99
--- NOTE | 2024-11-26 18:18 | ED.URI ---
HPI - URI/Sore Throat General Chief Complaint: Upper Respiratory Infection Stated Complaint: cough/congestion Time Seen by Provider: 11/26/24 17:45 Source: patient Mode of arrival: ambulatory Limitations: no limitations History of Present Illness HPI Narrative: Patient is a 49-year-old female that presents with 1 week of congestion, intermittent productive cough, sore throat. Went camping last week and symptoms has worsened since then. Did home COVID in flu test that was negative. Patient is a half a pack-a-day smoker. Patient has not taken anything for symptoms. Denies any fever, chills, nausea, vomiting, diarrhea. Does have to 3-month-old grand children that she helps watch and is concerned to get them sick Related Data Home Medications ?Medication ?Instructions ?Recorded ?Confirmed ?Last Taken ?Type aspirin 81 mg chewable tablet 81 mg PO DAILY 04/02/19 01/10/24 Unknown History atorvastatin 10 mg tablet 10 mg PO DAILY 04/02/19 01/10/24 Unknown History levothyroxine 150 mcg tablet 150 mcg PO DAILY 11/20/20 01/10/24 Unknown History nitroglycerin 0.4 mg sublingual 0.4 mg sublingual DIRECTED 01/10/24 01/10/24 Unknown History tablet loratadine 10 mg tablet mg 11/26/24 Unknown History Allergies Allergy/AdvReac Type Severity Reaction Status Date / Time indomethacin Allergy Unknown RASH Verified 11/26/24 17:57 Review of Systems Review of Systems: All systems reviewed & are unremarkable except as noted in HPI and below Constitutional: Constitutional: Denies chills, Denies fatigue, Denies fever(s), Denies headache(s), Denies malaise and Denies weakness Eyes: Eyes: Denies blurry vision, Denies itchy eyes and Denies loss of vision ENT: Denies otalgia, Denies headache(s), Reports nasal congestion, Denies sinus pain and Reports sore throat Cardiovascular: Cardiovascular: Denies chest pain, Denies irregular heart rhythm and Denies dyspnea Respiratory: Respiratory: Reports cough and Denies dyspnea Gastrointestinal: Gastrointestinal: Denies abdominal pain, Denies diarrhea, Denies nausea and Denies vomiting Musculoskeletal: Musculoskeletal: Denies back pain, Denies myalgias and Denies arthralgias Integumentary/Breasts: Skin/Breast: Denies pruritus and Denies rash Neurologic: Denies headache(s), Denies loss of vision and Denies weakness Psychiatric: Psychiatric: Reports no additional psychiatric complaints Endocrine: Endocrine: Denies fatigue Allergic/Immunologic: Allergic/Immunologic: Denies itchy eyes PMFSH Past Medical History Medical History Reactive airway disease High cholesterol Hypothyroidism Social History Social History Smoking status: Current every day smoker Tobacco type: cigarettes Gender identity (if verbalized by the patient): Female Comments At time of signature, agree with nursing past medical, surgical, social and family history. There is no relevant family history pertinent to the presenting complaint. Exam Const: General: cooperative, healthy appearing, comfortable, no acute distress and well nourished Nutritional Appearance: well nourished Orientation/consciousness: patient oriented x3 Limitations: no limitations HENMT: Head: normal to inspection, normocephalic and atraumatic Ears: hearing grossly normal bilaterally, external ears normal, TM's normal bilaterally, EAC's normal and no periauricular adenopathy Face/Nose/Sinus: Normal external nose present, Abnormal mucous membranes and turbinates present erythematous bilateral and diffuse, normal facial exam, sinuses nontender and face symmetric Face and sinus: normal facial exam, sinuses nontender and face symmetric Mouth: Yes Normal oral and palatal mucosa present, Yes lip normal, Yes tongue normal, Yes Normal salivary glands and ducts present, Yes oropharynx normal and Yes moist mucous membranes Teeth and gingiva: dentition normal Throat: posterior oropharynx normal, tonsils normal and uvula midline Eyes: General: appearance normal, both eyes and all related structures Alignment and Position: alignment normal and position normal Periorbital: periorbital findings normal Eyelids: eyelids normal Pupils: Equal, round and reactive pupils present Neck: Neck: normal visual inspection, full ROM, no lymphadenopathy and supple Chest: Chest palpation & inspection: normal inspection of the chest and normal palpation of entire chest wall Resp: Effort & Inspection: normal respiratory effort and able to speak in complete sentences Auscultation: no crackles, no rales, rhonchi throughout (Clears slightly with cough) and no wheezes Cardio: Rate: regular rate Rhythm: regular rhythm Heart sounds: S1 normal heart sound present and S2 normal heart sound present GI: Inspection: normal to inspection Skin: General skin exam: normal color and no rashes or lesions noted Neuro: General: patient oriented x3 and moves all extremities Cranial nerves: Yes Equal, round and reactive pupils present Speech: normal speech Gait exam (Neuro): Normal gait present Extrem: General: normal to inspection, full ROM and no edema Psych: Appearance: grossly normal and well kempt Mental Status: mental status grossly normal Speech and movement: Normal speech and movement present Affect: normal affect Attitude: cooperative Thought process: Normal thought process present Course Course Emergency Course: Discharge instructions reviewed with patient, as well as provided in writing per nursing staff. The instructions also include specific and strict return/GO TO THE ER as well as f/u information. All questions have been answered, and the patient deny any further questions with discharge and discharge plan. Portions of this record may have been created with voice recognition software Level of Care: Express Care Visit Vital Signs Vital signs: Vital Signs Temperature 36.3 C L 11/26/24 17:45 Pulse Rate 79 11/26/24 17:45 Respiratory Rate 16 11/26/24 17:45 Blood Pressure 131/81 11/26/24 17:45 Pulse Oximetry 99 11/26/24 17:45 Oxygen Delivery Room Air 11/26/24 17:45 Temperature 36.3 C L 11/26/24 17:45 Pulse Rate 79 11/26/24 17:45 Respiratory Rate 16 11/26/24 17:45 Blood Pressure 131/81 11/26/24 17:45 Pulse Oximetry 99 11/26/24 17:45 Oxygen Delivery Room Air 11/26/24 17:45 Reviewed MDM - URI/Sore Throat MDM Narrative Medical decision making narrative: Will cover with antibiotics and steroids based on history of smoking and presentation Pt well hydrated appearing, in no respiratory distress, hemodynamically stable. Recommend supportive care. The patient is stable at time of discharge the clinical impression was discussed and the patient was given the opportunity to ask questions, which were addressed as completely as possible given the information available at present. Anticipatory guidance and return to care precautions were discussed and the importance of primary care follow-up was stressed and encouraged. The patient voiced understanding of the plan, indications to return, and the need for follow-up. Exam findings show no acute concerns or changes Patient is appropriate for outpatient treatment and follow-up. Differential diagnosis considered: Keenan virus, strep pharyngitis, allergic rhinitis, upper respiratory tract infection, sinusitis, rhinosinusitis, nasopharyngitis. viral pharyngitis, otitis media, otitis externa, otitis effusion, foreign body, cerumen impaction, viral syndrome, and influenza.? Medical Records Attestation: I reviewed the patient's medical records. Discharge Plan Discharge Clinical Impression: Upper respiratory infection with cough and congestion Patient Disposition: Home Condition: Stable Instructions: Upper Respiratory Infection (ED) Additional Instructions: Take antibiotic as prescribed. Take steroids in the morning with food. Use inhaler with spacer as needed. Other symptomatic treatments include: -Alternate Tylenol and Motrin per package directions for fever or pain: Tylenol 650-1000mg by mouth every 4-6 hours. Do not exceed 4000mg in 24 hours. Advil (Ibuprofen) 600 mg by mouth every 6 hours. Do not exceed 2400mg in 24 hours. 8 AM: Tylenol 11 AM: Ibuprofen 2 PM: Tylenol 5 PM: Ibuprofen 8 PM: Tylenol 11 PM: Ibuprofen 2 AM: Tylenol 5 AM: Ibuprofen -Antihistamine medication such as Benadryl at night and Zyrtec/Claritin/Kezia during the day can help improve symptoms. -Use Flonase twice a day for 5 days then daily to help reduce the inflammation and dry up your sinuses. -You can also use Sudafed or Mucinex. Be sure to drink plenty of water with these medications at least 8 ounces with every dose and it is important to drink 8 to 10 glasses of water per day. Water is a natural decongestant -Eat and drink things that are easy to swallow, like tea or soup, or popsicles. -Oral rinses such as: Salt water gargles and/or may use topical anesthetic (eg. Chloraseptic spray) or lozenges to relieve dryness or throat pain). -Frequent hand washing or hand medication administration professional is one of the best ways to prevent spread of infection. -Using a vaporizer or humidifier at night will also help thin secretions and help with coughing up phlegm. Call your Primary Care Doctor and make a follow-up appointment in 3 days. If your cough worsens, you develop a fever greater than 103, you develop shaking chills, a fast heartbeat, trouble breathing and/or feel you are are breathing much faster than usual, call your Primary Care Doctor or go to the ER. Patient Language: Welsh Prescriptions: New albuterol sulfate 90 mcg/actuation HFA aerosol inhaler 2 puff inhalation QID PRN (Reason: shortness of breath or wheezing) Qty: 6.7 0RF (DME) Aerochamber MV Spacer See Rx Instructions .Route Qty: 1 0RF Rx Instructions: As directed prednisone 20 mg tablet 40 mg PO DAILY 5 Days Qty: 10 0RF doxycycline monohydrate 100 mg tablet 100 mg PO BID 7 Days Qty: 14 0RF No Action atorvastatin 10 mg tablet 10 mg PO DAILY aspirin 81 mg Tablet,Chewable 81 mg PO DAILY nitroglycerin 0.4 mg tablet, sublingual 0.4 mg sublingual DIRECTED loratadine 10 mg tablet levothyroxine 150 mcg tablet 150 mcg PO DAILY Follow-up/Referrals: Gamaliel,Erin Butts ELEVATOR BUILDER [Primary Care Provider] - 3 Days Time of Disposition: 18:40
== END 2024-11-26 18:45 | disposition home or self-care (01) ==
PROVIDERS: Emergency Provider Nurse Practitioner Family; PCP Nurse Practitioner Family
DX: J06.9 Acute upper respiratory infection, unspecified (principal); R05.9 Cough, unspecified; F17.210 Nicotine dependence, cigarettes, uncomplicated; E78.00 Pure hypercholesterolemia, unspecified; E03.9 Hypothyroidism, unspecified; Z79.82 Long term (current) use of aspirin
CPT/HCPCS: 99213; G0463

== ENCOUNTER 2025-03-17 08:11 | Emergency (ER) | payer OTHER, SELFPAY ==
--- NOTE | ~2025-03-17 | CT_ITS ---
EXAMINATION: CT brain wo con COMPARISON: None HISTORY: severe headache TECHNIQUE: Axial images were obtained through the brain without IV contrast. CT scan performed using dose optimization techniques including the following automated exposure control; adjustment of mA and/or kV; use of iterative reconstruction technique. Automatic exposure control was used to reduce radiation dose. Permanent radiation dose record is archived to [facility]. FINDINGS: No acute infarct or parenchymal hemorrhage. No abnormal mass or mass effect. No midline shift. No extra-axial fluid collections. No hydrocephalus. . Mastoid air cells unremarkable. Sinuses and orbits unremarkable. No acute fracture. No significant facial or scalp soft tissue swelling evident. No radiopaque foreign body is seen. Impression: 1.No acute intracranial abnormality. Reviewed, dictated and finalized at location P. Impression: 1.No acute intracranial abnormality.
[2025-03-17 08:19] VITALS: BP 133/95; PULSE 94; RESP 16; TEMP 36.6; O2SAT 97
--- OUTSIDE RECORDS SUMMARY | 2025-03-17 08:20 | XMS_ITS | Encounter Summary ---
Author Organization [facility] Address [facility] [place] [address] Care Team Providers Care Size Stamper Name Role Phone Erin Alston NP Primary Care Provider [phone] Ze Peck MD Unavailable [phone] Encounter Details Date Type Department Care Team (Latest Contact Info) Description 07/22/2024 MYR Message Enc [facility] - [address], [address] [place] [id number] [employer], [facility] Provider Medication HOLD time Social History Tobacco Use Types Packs/Day Years Used Date Smoking Tobacco: Every Day Cigarettes 1 32.8 Started: 1992 Smokeless Tobacco: Never Alcohol Use Standard Drinks/Week Comments Not Currently 0 (1 standard drink = 0.6 oz pur e alcohol) weekends-camping season AUDIT-C Answer Date Recorded Frequency of Alcohol Consumption Monthly or less 11/07/2018 Average Number of Drinks Not on file 019 Frequency of Binge Drinking Not on file 10/20 PHQ-2 Answer Date Recorded Patient Health Questionnaire-2 Score 0 04/08/2024 Comments No Sex and Gender Information Value Date Recorded Sex Assigned at Female 07/19/2024 9:18 AM ONLINE CONTENT DEVELOPER Legal Sex Female 1:37 AM CDT Gender Identity Not on file Sexual Orientation Not on file documented as of this encounter Functional Status * RETIRED Are you deaf or do you have serious difficulty hearing Answer Date of Assessment Author Status No 11/25/2021 6:37 PM CDT Activ e * RETIRED Are you blind or do you have serious difficulty seeing, even when wearing glasses? Answer Date of Assessment Author Status No 11/25/2021 6:37 PM CDT Activ e * Do you have serious difficulty walking or climbing stairs? Answer Date of Assessment Author Status No 11/25/2021 6:37 PM Ernestine Riggs RN Active * Do you have difficulty dressing or bathing? Answer Date of Assessment Author Status No 11/25/2021 6:37 PM Ernestine Riggs RN Active * Because of a physical, mental, or emotional condition, do you have difficulty doing errands alone such as visiting a doctor's office or shopping? Answer Date of Assessment Author Status No 11/25/2021 6:37 PM Ernestine Riggs RN Active documented as of this encounter Mental Status * Because of a physical, mental, or emotional condition, do you have serious difficulty concentrating, remembering, or making decisions? Answer Entry Date Author Status No 11/25/2021 6:37 PM Ernestine Riggs RN Active documented in this encounter Plan of Treatment Upcoming Encounters Date Type Department Care Team (Late st Contact Info) Description 07/22/2025 10:45 AM ONLINE CONTENT DEVELOPER Office Visit [facility] [address] [place], [place] [id number] Inge Farr [employer] [facility]. [facility] [address] [place] [address] documented as of this encounter Goals Goal Patient Goal Type Associated Problems Recent Progress Patient-Stated? Author Health - patient able to perform ADLs independently General No Cheri Garrett RN documented as of this encounter Visit Diagnoses Not on filedocumented in this encounter Additional Health Concerns Infection Onset Date Last Indicated Resolved Time MRSA Comment:11/23/21 jing ([place]) 11/24/2021 11/24/2021 Assessment Noted Time PHQ-9 Depression Total Score: 0 04/08/20 24 10:56 AM ONLINE CONTENT DEVELOPER documented as of this encounter Care Teams Size Stamper Relationship Specialty Start Date End Date Erin Alston NP PCP - General 09/10/16 Ze Peck MD [facility]. [address] [address] [place] Resource Teacher CARDIOVASCULAR DISEASE 03/23/18 documented as of this encounter
--- OUTSIDE RECORDS SUMMARY | 2025-03-17 08:20 | XMS_ITS | Encounter Summary ---
Author Organization [facility] Address [facility] [place] [address] Care Team Providers Care Orange Peel Operator Name Role Phone Erin Alsotn NP Primary Care Provider [phone] Katy Peck MD Unavailable [phone] Encounter Details Date Type Department Care Team (Late st Contact Info) Description 05/16/2023 Hospital Orders Only [facility] C[employer] Separ[employer] [place], [place] [id number] Katy Peck MD [facility]. [address] [place], [place] [id number] Social History Tobacco Use Types Packs/Day Years [...] Date Recorded Patient Health Questionnaire-2 Score 0 07/14/2022 Comments No Sex and Gender Information Value Date Recorded Sex Assigned at Female 07/19/2024 9:18 AM TELETYPEWRITER INSTALLER Legal Sex Female 1:37 AM CDT Gender [...] Author Status No 11/25/2021 6:37 PM CDT Ernestine Diallo RN Active * Do you have difficulty dressing or bathing? Answer Date of Assessment Author Status No 11/25/2021 6:37 PM CDT Ernestine Diallo RN Active * Because of a physical, mental, or emotional condition, do you have difficulty doing errands alone such as visiting a doctor's office or shopping? Answer Date of Assessment Author Status No 11/25/2021 6:37 PM CDT Ernestine Diallo RN Active * Calculated C-SSRS Risk Score (Lifetime/Recent) Answer Date of Assessment Author Status No Risk Indicated 05/17/2023 7:15 AM TELETYPEWRITER INSTALLER Kina Pereira RN Active * [place] Suicide Severity Rating Scale (Screener/Recent Self-Report) Question Answer Date of Assessment Author Status 1. Wish to be (Past 1 Month) No 05/17/2023 7:15 AM TELETYPEWRITER INSTALLER Kina Pereira RN Active 2. Non-Specific Active Suicidal Thoughts (Past 1 Month) No 05/17/2023 7:15 AM TELETYPEWRITER INSTALLER Kina Pereira RN Active 6. Suicidal Behavior (Lifetime) No 05/17/2023 7:15 AM TELETYPEWRITER INSTALLER Kina Pereira RN Active documented as of this encounter Mental Status * Because of a physical, mental, or emotional condition, do you have serious difficulty concentrating, remembering, or making decisions? Answer Entry Date Author Status No 11/25/2021 6:37 PM CDT Ernestine Diallo RN Active documented in this encounter H&P Notes * Katy Peck MD - 05/16/2023 5:29 PM CST Images from the original note were not included. Attending Provider: No att. providers found PCP: ERIN ALSTON NP Harmony Garcia is an 47-year-old female. Reason for Admission: * No active hospital problems. * HPI: History of Present Illness: Ms. Garcia is a 46-year-old woman who has history of hyperlipidemia, ongoing tobacco use. History of coronary calcification by CT scan. CT calcium score of 76. She did have some chest discomfort, underwent stress echo which was negative for ischemia. Her echo howed small PFO, normal EF. Mild RV dysfunction. Does not have DIMAS. No SOB. ECG nsr, she is having some intermitant cp Impression recommendation 1. Hyperlipidemia: on lipitor 10mg HS. Continue lifelong aspirin. She is on statin, LDL well controlled. Patient has elevated coronary calcium score. 2. Tobacco abuse: advised cessation. She has failed wellbutrin. Would be willing to try chantix. Will call me and let me know. Advised her that she really needs to stop smoking. 3. Hypertension: Patient's blood pressure is currently well controlled. Continue current medications, advised low sodium diet, stay active. Advised to monitor blood pressure at home and call for persistently elevated readings. 4. Elevated coronary calcium score: echo with normal EF. Mild global hypokinesis. Patient has intermittent chest pain. Abnormal CTA large calcified plaque in the LAD ejection fraction 52%. She has multiple cardiac risk factors. History of tobacco use. I recommended left heart catheterization: We discussed the risks and benefits of left heart catheterization with the patient. Risks of Left Heart Catheterization: Infection: As with any invasive procedure, there is a risk of infection at the catheter insertion site or within the bloodstream. Bleeding: There may be bleeding or bruising at the insertion site, or, in rare cases, internal bleeding. Blood vessel damage: The catheter may cause injury to the blood vessels, including dissection or perforation, which may require additional intervention. Reaction to contrast dye: Some patients may have an allergic reaction to the contrast dye used during the procedure, ranging from mild to severe. Kidney damage: The contrast dye may also cause kidney damage, particularly in patients with pre-existing kidney disease or diabetes. Radiation exposure: As the procedure uses X-ray imaging, there is a small risk associated with radiation exposure. Arrhythmias: The catheter's manipulation within the heart can occasionally trigger abnormal heart rhythms, which are usually temporary but may require treatment. Rare complications: Other rare but severe complications include heart attack, stroke, or even . Benefits of Left Heart Catheterization: Accurate Diagnosis: This procedure provides a detailed visualization of the coronary arteries to identify blockages, evaluate heart function, and diagnose various heart conditions more accurately than non-invasive tests. Guiding Treatment: The information obtained during left heart catheterization can guide the development of a personalized treatment plan, including medication adjustments, lifestyle modifications, and, if necessary, further interventional procedures or surgery. Relief of Symptoms: Identifying and addressing blockages in the coronary arteries can lead to improved blood flow to the heart muscle, alleviating symptoms such as chest pain, shortness of breath, and fatigue. Prevention of Complications: Early detection and management of coronary artery disease can prevent complications such as heart attack, heart failure, and arrhythmias, ultimately reducing the risk of long-term disability or . MPRESSION Stenosis: Moderate stenosis of proximal left anterior descending. Plaque (Calcium Score): Overall, there is a moderate amount of coronary plaque. Ejection Fraction: 52%. Large proximal LAD calcified plaque with 60-70% stenosis. Recommend clinical correlation. RECOMMENDATION: CAD RADS score is 1 P3 or P4- Consider non-atherosclerotic causes of symptoms. Recommend aggressiverisk factor modification and preventative pharmacotherapy. Past Medical History: Diagnosis Date Abnormal electrocardiogram 05/01/2013 Atherosclerosis of coronary artery 03/13/2018 CAD (coronary artery disease) Chest wall pain 05/01/2013 Dyslipidemia GERD (gastroesophageal reflux disease) Hypothyroidism 02/05/2013 Nicotine dependence 12/08/2014 Allergies: Allergies Allergen Reactions Indomethacin Hives and Unknown Social History Tobacco Use Smoking status: Every Day Packs/day: 1.00 Years: 25.00 Additional pack years: 0.00 Total pack years: 25.00 Types: Cigarettes Start date: 1992 Smokeless tobacco: Never Substance Use Topics Alcohol use: Not Currently Comment: weekends-camping season Past Surgical History: Procedure Laterality Date APPENDECTOMY APPENDECTOMY 2013 SECTION 2012 CHOLECYSTECTOMY UMBILICAL HERNIA REPAIR 2013 Family History Problem Relation Name Age of Onset None Mother Lesa CABG Father Valve Disease Father Liver Disease Father Cancer Sister Dd [place] Maternal Grandfather Travel Exposure: Current Outpatient Medications on File Prior to Visit Medication Sig albuterol sulfate HFA 108 (90 Base) MCG/ACT inhaler INHALE 2 PUFFS BY MOUTH EVERY 4 TO 6 HOURS NEEDED FOR SHORTNESS OF BREATH OR WHEEZING aspirin EC 81 MG EC tablet Take 1 tablet (81 mg total) by mouth daily. atorvastatin (LIPITOR) 20 MG tablet Take 1 tablet (20 mg total) by mouth nightly at bedtime. cyclobenzaprine (FLEXERIL) 5 MG tablet cyclobenzaprine 5 mg tablet fluticasone-salmeterol (ADVAIR DISKUS) 100-50 MCG/ACT inhaler Inhale 1 puff into the lungs 2 (two) times daily as needed. levothyroxine (SYNTHROID) 150 MCG tablet Take 1 tablet (150 mcg total) by mouth every morning. loratadine 10 MG tablet Take 1 tablet (10 mg total) by mouth daily as needed for Allergies. medroxyPROGESTERone 150 MG/ML injection Inject 1 mL (150 mg total) into the muscle every 3 (three) months. nitroglycerin (NITROSTAT) 0.[address] 1 tablet (0.4 mg total) under the tongue every 5 (five) minutes as needed for Chest Pain. Maximum of 3 doses. No current facility-administered medications on file prior to visit. There were no vitals taken for this visit. Review of Systems Constitutional: Negative for chills, fever and weight loss. Cardiovascular: Positive for chest pain. Negative for palpitations, orthopnea and claudication. Genitourinary: Negative for dysuria. Physical Exam Constitutional: General: She is not in acute distress. Appearance: She is well-developed. HENT: Nose: No mucosal edema. Mouth/Throat: Pharynx: No oropharyngeal exudate. Neck: Vascular: No carotid bruit or JVD. Cardiovascular: Rate and Rhythm: Normal rate and regular rhythm. No extrasystoles are present. Heart sounds: S1 normal and S2 normal. No murmur heard. No gallop. Pulmonary: Effort: Pulmonary effort is normal. No respiratory distress. Breath sounds: Normal breath sounds. Abdominal: Palpations: There is no mass. Tenderness: There is no abdominal tenderness. Musculoskeletal: General: No deformity. Cervical back: Neck supple. Right lower leg: No edema. Left lower leg: No edema. Skin: General: Skin is warm and dry. Findings: No erythema. Neurological: Mental Status: She is alert and oriented to person, place, and time. Psychiatric: Behavior: Behavior normal. Thought Content: Thought content normal. KATY PECK MD 05/16/2023 TYPEWRITER INSTALLER documented in this encounter Plan of Treatment Upcoming Encounters Date Type Department Care Team (Late st Contact Info) Description 07/22/2025 10:45 AM TELETYPEWRITER INSTALLER Office Visit [facility], [address] [place] [address] Inge Farr, INTERMEDIATE SCHOOL TEACHER-C [facility]. [address] [place] [address] documented as of this encounter Goals Goal Patient Goal Type Associated Problems Recent Progress Patient-Stated? Author Health - patient able to perform ADLs independently General No Cheri Garrett, RN documented as of this encounter Visit Diagnoses Not on filedocumented in this encounter Additional Health Concerns Infection Onset Date Last Indicated Resolved Time MRSA Comment:11/23/21 jing (BelkysK) 11/24/2021 11/24/2021 Assessment Noted Time PHQ-9 Depression Total Score: 3 07/14/19 23 11:58 AM TELETYPEWRITER INSTALLER documented as of this encounter Care Teams Orange Peel Operator Relationship Specialty Start Date End Date Erin Alston NP PCP - General 09/10/16 Katy Peck MD [facility]. [address] [place] [address] Chen Rock Singer CARDIOVASCULAR DISEASE 03/23/18 documented as of this encounter
--- OUTSIDE RECORDS SUMMARY | 2025-03-17 08:20 | XMS_ITS | Encounter Summary ---
Author Organization [facility] Address [facility] [place] [address] Care Team Providers Care Sterilization Tech Name Role Phone Erin Alston LEASING DIRECTOR Primary Care Provider [phone] Ze Peck MD Unavailable [phone] Encounter Details Date Type Department Care Team (Late st Contact Info) Description 02/26/2021 MyChart Message Enc [facility] Medical Group Family and Sports Medicine - [place] [address] [place] [address] Erin Alston, LEASING DIRECTOR [address] [place] [address] Question Social History Tobacco Use Types Packs/Day Years Used Date Smoking Tobacco: Every Day Cigarettes 0.3 32.8 Started: 1992 Smokeless Tobacco: Never Alcohol Use Standard Drinks/Week Comments Yes 0 (1 standard drink = 0.6 oz pur e alcohol) AUDIT-C Answer Date Recorded Frequency of Alcohol Consumption Monthly or less 11/07/2018 Average Number of Drinks Not on file 019 Frequency of Binge Drinking Not on file 10/20 PHQ-2 Answer Date Recorded PHQ-2 Score - If the patient scores above 3, please move on to questions 3-9 0 03/31/2020 Comments No Sex and Gender Information Value Date Recorded Sex Assigned at Female 07/19/2024 9:18 AM RECEPTION CENTRE MANAGER Legal Sex Female 1:37 AM CDT Gender Identity Not on file Sexual Orientation Not on file COVID-19 Exposure Response Date Recorded In the last month, have you been in contact with someone who was confirmed or suspected to have Coronavirus / COVID-19? No / Unsure 02/23/2021 12:52 PM CDT documented as of this encounter Progress Notes * Sandhya De Leon MA - 02/26/2021 1:18 PM CDT Patient notified. * ANSHUL López - 02/26/2021 12:37 PM CDT Sent Amoxicillin for tooth abscess to [facility] * Kaitlin Sage MA - 02/26/2021 12:29 PM CDT Please advise documented in this encounter Plan of Treatment Upcoming Encounters Date Type Department Care Team (Late st Contact Info) Description 07/22/2025 10:45 AM RECEPTION CENTRE MANAGER Office Visit [facility], [facility] [address] [place], [place] [phone] Inge Farr NP-C [facility]. [facility] [address] [place] [address] documented as of this encounter Visit Diagnoses Diagnosis Tooth abscess- Primary Periapical abscess without sinus documented in this encounter Additional Health Concerns Infection Onset Date Last Indicated Resolved Time COVID-19 Rule Out 11/23/2021 11/23/2021 11/23/2021 5:31 PM CDT MRSA Comment:11/23/21 jing (HOLLAND) 11/24/2021 11/24/2021 documented as of this encounter Care Teams Sterilization Tech Relationship Specialty Start Date End Date Erin Alston NP PCP - General 09/10/16 Ze Peck MD [facility]. [facility] [address] [place] [address] [place] Control Engineer CARDIOVASCULAR DISEASE 03/23/18 documented as of this encounter
--- OUTSIDE RECORDS SUMMARY | 2025-03-17 08:21 | XMS_ITS | Encounter Summary ---
Author Organization [facility] Address [facility] [place] [address] Care Team Providers Care Slicing Machine Feeder Name Role Phone Erin Alston NP Primary Care Provider [phone] Ze Peck MD Unavailable [phone] Encounter Details Date Type Department Care Team (Late st Contact Info) Description 10/19/2017 Abstract [facility] Conversion Estella Lizarraga, JEREMY-BC [address] [facility], [place] [address] Social History Tobacco Use Types Packs/Day Years Used Date Smoking Tobacco: Smoker, Current Status Unknown Comments Unknown Sex and Gender Information Value Date Recorded Sex Assigned at Female 07/19/2024 9:18 AM FIRE FIGHTING EQUIPMENT SPECIALIST Legal Sex Female 1:37 AM CDT Gender Identity Not on file Sexual Orientation Not on file documented as of this encounter Miscellaneous Notes * Letter - JEREMY Presley-SHELBIE - 10/19/2017 12:00 AM CDT 19 Oct 2017 Harmony Garcia [address] [place] [address] Dear Harmony Garcia, Thank you for the trust you have placed in [facility] as your health care team. You are a valued patient at our office and we hope you are well. We are concerned about your health and noticed that you did not keep your last scheduled appointment on 10/19/2017. If your appointment has not been rescheduled, please call the office at to reschedule your appointment as soon as possible. As you are aware, we are dedicated to caring for the whole patient, not just treating an illness. When we schedule appointments, we set aside time and professional resources to meet the individual needs of our patients, including time for one-on-one consultation. When a patient does not come to an appointment or cancels the appointment without sufficient notice, our health care team is not able to take time needed to care for another patient. Cancelling within at least 24 hours of your appointment allows us to prepare our schedule for other patients who need timely care. Please be aware, per our organization's no-show policy, if at least 24 hours' notice is not given two times in one year, the practice will impose a $25 no- show fee. We understand there are occasions when a patient must miss an appointment due to unforeseen circumstances. In this event, please call our office and cancel your appointment as soon as you are able. This allows our staff to schedule another patient in need of care. We are committed to providing you the best care possible. We hope to hear from you soon. Sincerely, [facility] cc: Patient Medical Record FIGHTING EQUIPMENT SPECIALIST documented in this encounter Plan of Treatment Upcoming Encounters Date Type Department Care Team (Late st Contact Info) Description 07/22/2025 10:45 AM FIRE FIGHTING EQUIPMENT SPECIALIST Office Visit [facility], [address] [place], [place] [phone] Inge Farr NP-C [facility]. [facility] [address] [place], [place] [id number] documented as of this encounter Visit Diagnoses Not on filedocumented in this encounter Additional Health Concerns Infection Onset Date Last Indicated Resolved Time COVID-19 Rule Out 11/23/2021 11/23/2021 11/23/2021 5:31 PM CDT MRSA Comment:7/5/22 jing (JK) 11/24/2021 11/24/2021 documented as of this encounter Care Teams Slicing Machine Feeder Relationship Specialty Start Date End Date Erin Alston NP PCP - General 09/10/16 Ze Peck MD [facility]. [address] [address] [place] Diet Consultant CARDIOVASCULAR DISEASE 03/23/18 documented as of this encounter
--- OUTSIDE RECORDS SUMMARY | 2025-03-17 08:21 | XMS_ITS | Encounter Summary ---
Author Organization [facility] Address [facility] [place] [address] Care Team Providers Care Social Science Professor Name Role Phone Erin Alston DIRECTOR OF ENTERTAINMENT Primary Care Provider [phone] Ze Peck MD Unavailable [phone] Encounter Details Date Type Department Care Team (Latest Contact Info) Description 07/22/2022 MyChart Message Enc [facility] Medical Group Family and Sports Medicine - [place] [address] [place] [address] Erin Alston, DIRECTOR OF ENTERTAINMENT [address] [place] [address] Diagnostic Technologist Referral Social History Tobacco Use Types Packs/Day Years Used Date Smoking Tobacco: Every Day Cigarettes 0.5 32.8 Started: 1992 Smokeless Tobacco: Never Alcohol [...] Sex Assigned at Female 07/19/2024 9:18 AM INSULATION NOZZLEMAN Legal Sex Female 1:37 AM CDT Gender Identity Not on file Sexual Orientation Not on file COVID-19 Exposure Response Date Recorded In the last 10 days, have yo u been in contact with someone who was confirmed or suspected to have Coronavirus/COVID-19? No / Unsure 07/14/2022 9:47 AM INSULATION NOZZLEMAN documented as of this encounter Functional Status [...] PM CDT Ernestine Diallo RN Active documented as of this encounter Mental Status * Because of a physical, mental, or emotional condition, do you have serious difficulty concentrating, remembering, or making decisions? Answer Entry Date Author Status No 11/25/2021 6:37 PM CDT Ernestine Diallo RN Active documented in this encounter Plan of Treatment Upcoming Encounters Date Type Department Care Team (Late st Contact Info) Description 07/22/2025 10:45 AM INSULATION NOZZLEMAN Office Visit [facility], [facility] [address] [place], [place] [id number] Inge Farr NP-C [facility]. [facility] [address] [place], [place] [id number] documented as of this encounter Goals Goal Patient Goal Type Associated Problems Recent Progress Patient-Stated? Author Health - patient able to perform ADLs independently General No Tami Cheri M, RN documented as of this encounter Visit Diagnoses Not on filedocumented in this encounter Additional Health Concerns Infection Onset Date Last Indicated Resolved Time MRSA Comment:11/23/21 jing (HOLLAND) 11/24/2021 11/24/2021 Assessment Noted Time PHQ-9 Depression Total Score: 3 07/14/19 23 11:58 AM INSULATION NOZZLEMAN documented as of this encounter Care Teams Social Science Professor Relationship Specialty Start Date End Date Erin Alston NP PCP - General 09/10/16 Ze Peck MD Three [facility]. [address] [address] [place] Clinical Dental Technician CARDIOVASCULAR DISEASE 03/23/18 documented as of this encounter
--- OUTSIDE RECORDS SUMMARY | 2025-03-17 08:21 | XMS_ITS | Encounter Summary ---
Author Organization [facility] Address [facility] [place] [address] Care Team Providers Care Polishing Machine Operator Name Role Phone Erin Alston NP Primary Care Provider [phone] Ze Peck MD Unavailable [phone] Encounter Details Date Type Department Care Team (Late st Contact Info) Description 06/17/2024 MyChart Message Enc [facility] Medical Group Family and Sports Medicine - [place] [address] [place] [address] Erin Alston, CULTURE ROOM WORKER [address] [place] [address] Levothyroxine Social History Tobacco Use Types Packs/Day Years [...] Sex Assigned at Female 07/19/2024 9:18 AM MATERIAL EXPEDITOR Legal Sex Female 1:37 AM CDT Gender [...] Assessment Author Status No 11/25/2021 6:37 PM CLARET Ernestine Diallo RN Active * Because of [...] st Contact Info) Description 07/22/2025 10:45 AM MATERIAL EXPEDITOR Office [facility], [address] [place], [place] [phone] Inge Farr NP-C [facility]. [address] [place], [place] [address] documented as of this encounter Goals Goal [...] Total Score: 0 04/08/20 24 10:56 AM MATERIAL EXPEDITOR documented as of this encounter Care Teams Polishing Machine Operator Relationship Specialty Start Date End Date Erin Alston NP PCP - General 09/10/[address] [facility]. [address] [address] [place] Health Policy Manager CARDIOVASCULAR DISEASE 03/23/18 documented as of this encounter
--- OUTSIDE RECORDS SUMMARY | 2025-03-17 08:21 | XMS_ITS | Encounter Summary ---
Author Organization [facility] Address [address] [place] [address] Care Team Providers Care Home Health Billing Specialist Name Role Phone Erin Alston STONE CARRIAGE OPERATOR Primary Care Provider [phone] Ze Peck MD Unavailable [phone] Encounter Details Date Type Department Care Team (Late st Contact Info) Description 12/09/2022 MyChart Message Enc [facility] Medical Group Family and Sports Medicine - [place] [address] [place] [address] Erin Alston, STONE CARRIAGE OPERATOR [address] [place], [place] [phone] 30 Antibiotic Social History Tobacco Use Types Packs/Day Years [...] Sex Assigned at Female 07/19/2024 9:18 AM CLAY WASHER Legal Sex Female 1:37 AM CDT Gender [...] Date Author Status No 11/25/2021 6:37 PM CLARET Ernestine Diallo RN Active documented in this encounter Progress Notes * ANSHUL López - 12/09/2022 8:05 AM CDT Call pt if my chart not read soon. * ANSHUL López - 12/09/2022 8:04 AM CDTFrom: Harmony Garcia To: Erin Alston Sent: 12/09/2022 6:23 AM CDT Subject: Antibiotic I have a dentist appt On Dec 20. Had one a couple weeks ago also to get some work done but woke upin the middle of the night swollen and tooth hurting. Dentist is not open on Fridays and I am supposed to leave for [place] in a few Hours. Is there anyway I can get something to help while I am out of town. documented in this encounter Plan of Treatment Upcoming Encounters Date Type Department Care Team (Late st Contact Info) Description 07/22/2025 10:45 AM CLAY WASHER Office Visit [facility] THREE [facility], [address] [place] [address] Inge Farr, STONE CARRIAGE OPERATOR-C Three [facility]. [address] [place] [address] documented as of this encounter Goals Goal Patient Goal Type Associated Problems Recent Progress Patient-Stated? Author Health - patient able to perform ADLs independently General Cheri Hall, RN documented as of this encounter Visit Diagnoses Diagnosis Tooth infection- Primary Acute apical periodontitis of pulpal origin Vaginal yeast infection Candidiasis of vulva and vagina documented in this encounter Additional Health Concerns Infection Onset Date Last Indicated Resolved Time MRSA Comment:11/23/21 jing (JK) 11/24/2021 11/24/2021 Assessment Noted Time PHQ-9 Depression Total Score: 3 07/14/19 23 11:58 AM CLAY WASHER documented as of this encounter Care Teams Home Health Billing Specialist Relationship Specialty Start Date End Date Erin Alston NP PCP - General 09/10/16 Ze Peck MD Three [facility]. [address] [place] [address] [place] Route Agent CARDIOVASCULAR DISEASE 03/23/18 documented as of this encounter
--- OUTSIDE RECORDS SUMMARY | 2025-03-17 08:21 | XMS_ITS | Encounter Summary ---
Author Organization [facility] Address [address] [place] [address] Care Team Providers Care Treatment Plant Operator Name Role Phone Erin Alston NP Primary Care Provider [phone] Ze Peck MD Unavailable [phone] Encounter Details Date Type Department Care Team (Late Contact Info) Description 02/06/2020 Abstract [facility], [address] [address] Louann Raymundo MA Social History Tobacco Use Types Packs/Day Years [...] of Binge Drinking Not on file 10/20 Comments No Sex and Gender Information Value Date Recorded Sex Assigned at Female 07/19/2024 9:18 AM SILVICULTURIST Legal Sex Female 1:37 AM CDT Gender Identity Not on file Sexual Orientation Not on file documented as of this encounter Plan of Treatment Upcoming Encounters Date Type Department Care Team (Late Contact Info) Description 07/22/2025 10:45 AM SILVICULTURIST [facility] [address] [place] [address] Inge Farr NP-C Three [facility]. [address] [place] [address] documented as of this encounter Procedures Procedure Name Priority Date/Time Associated Diagnosis Comments URINALYSIS, AUTO, COMPLETE Routine 2020 LIPID PANEL Routine 02/05/2020 documented in this encounter Results * URINALYSIS, AUTO, COMPLETE (2020) COLOR (U) YELLOW TRANSPARENCY CLEAR GLUCOSE (U) NEGATIVE NEGATIVE MG/DL BILIRUBIN (U) NEGATIVE NEGATIVE KETONES MG/DL (U) NEGATIVE NEGATIVE MG/DL SPECIFIC GRAVITY (U) 1.025 1.001 - 1.035 BLOOD (U) NEGATIVE NEGATIVE U PH 6.0 5.0 - 9.0 PROTEIN (U) NEGATIVE NEGATIVE mg/dL NITRITES NEGATIVE NEGATIVE MG/DL EPI/HPF 0-2 HPF RBC/HPF 0-2 HPF WBC/HPF 0-2 HPF BACTERIA (U) NONE SEEN NONE SEEN HYALINE CASTS NONE SEEN 2020 us Doc [facility] Abstract URINE ORDERABLES Final Resul t * LIPID PANEL (02/05/2020) CHOLESTEROL 118 HDL 33 TRIGLYCERIDES 105 NON HDL CHOLESTEROL 85 LDL (CALCULATED) 66 02/05/2020 us Doc [facility] Abstract LABORATORY Final Result documented in this encounter Visit Diagnoses Not on filedocumented in this encounter Additional Health Concerns Infection Onset Date Last Indicated Resolved Time COVID-19 Rule Out 11/23/2021 11/23/2021 11/23/2021 5:31 PM CDT MRSA Comment:11/23/21 jing (HOLLAND) 11/24/2021 11/24/2021 documented as of this encounter Care Teams Treatment Plant Operator Relationship Specialty Start Date End Date Erin Alston NP PCP - General 09/10/16 Ze Peck MD Three [facility]. [facility] [address] [place] [address] [employer] Age Program Teacher CARDIOVASCULAR DISEASE 03/23/18 documented as of this encounter
--- OUTSIDE RECORDS SUMMARY | 2025-03-17 08:21 | XMS_ITS | Encounter Summary ---
Author Organization [facility] Address [facility] [place] [address] Care Team Providers Care Toy Consultant Name Role Phone Erin Alston REHEAT FURNACE OPERATOR Primary Care Provider [phone] Ze Peck MD Unavailable [phone] Encounter Details Date Type Department Care Team (Late st Contact Info) Description 11/29/2023 MyChart Message Enc [facility] Medical Group Family and Sports Medicine - [place] [address] [place] [address] Erin Alston, REHEAT FURNACE OPERATOR [address] [place] [address] Covid Social History Tobacco Use Types Packs/Day Years [...] Sex Assigned at Female 07/19/2024 9:18 AM MACHINE CARTON MARKER Legal Sex Female 1:37 AM CDT Gender [...] st Contact Info) Description 07/22/2025 10:45 AM MACHINE CARTON MARKER Office Visit [facility], [address] [place], [place] [phone] Inge Farr REHEAT FURNACE OPERATOR-C [facility]. [address] [place] [address] documented as of this encounter Goals Goal [...] Total Score: 3 07/14/19 23 11:58 AM MACHINE CARTON MARKER documented as of this encounter Care Teams Toy Consultant Relationship Specialty Start Date End Date Erin Alston NP PCP - General 09/10/16 Ze Peck MD [facility]. [address] [address] [place] Load Manager CARDIOVASCULAR DISEASE 03/23/18 documented as of this encounter
--- OUTSIDE RECORDS SUMMARY | 2025-03-17 08:21 | XMS_ITS | Clinical Summary ---
Author Organization [facility] Address [address] [facility] [place] [address] Care Team Providers Care Egg Processing Supervisor Name Role Phone Erin Alston Sandy VELIZ-PAPER BAG PRESS OPERATOR Primary Care Provider [phone] Source Comments [facility],non-owned Affiliates and Associated Physician Practices is amultiple site organization consisting of ambulatory clinics and hospital sitesin [place], [place], [place] and [place]. This disclosure is being madepursuant to the Care Everywhere program and may not contain all information available regarding this patient. Last updated 18.[facility] Semi Allergies Active Allergy Reactions Criticality Noted Date Comments Indomethacin Urticaria Medium 02/05/2019 Methylprednisolone Urticaria Medium 02/05/2019 Social History Tobacco Use Types Packs/Day Years Used Date Smoking Tobacco: Never Assessed Comments Unknown Sex and Gender Information Value Date Recorded Sex Assigned at Not on file Legal Sex Female 7:47 PM INFORMATICS PHYSICIAN LIAISON Gender Identity Not on file Sexual Orientation Not on file Plan of Treatment Health Maintenance Due Date Last Done Comments COLOGUARD (AGES 45-75) - COL ON CA SCREENING 1975 COLON MONITORING 1975 COLONOSCOPY - COLON CA SCREENING 1975 CT COLONOGRAPHY - COLON CA SCREENING 1975 Colorectal Cancer Screening 1975 FIT - COLON CA SCREENING 1975 FLEX SIG - COLON CA SCREENING 1975 MAMMOGRAM 1975 HIV SCREENING 11/09/1990 HEPATITIS C SCREENING 11/05/1993 DTAP/TDAP/TD VACCINES (1 - Tdap) 11/09/1994 HEPATITIS B VACCINE (1 of 3 - 19+ 3-dose series) 11/09/1994 PAP SMEAR 11/09/1996 DEPRESSION SCREENING 05/22/2024 COVID-19 VACCINE (1 - 2023-2 5 season) 2025 INFLUENZA VACCINE (#1) 2025 ZOSTER VACCINE (1 of 2) 11/09/2025 LIPID TESTING 07/15/2027 07/15/2022, 06/07/2022 HIB VACCINE Aged Out No longer eligi ble based on patient's age to complete this topic HPV VACCINE Aged Out No longer eligi ble based on patient's age to complete this topic MENINGOCOCCAL (Group B) VACCINE SHARED DECISION-MAKING Aged Out No longer eligible based on patient's age to complete this topic MENINGOCOCCAL GROUPS A/C/Y/W VACCINE Aged Out No longer eligible b ased on patient's age to complete this topic Insurance [facility] Care Teams Egg Processing Supervisor Relationship Specialty Start Date End Date Erin Alston, CREDIT CASHIER-PAPER BAG PRESS OPERATOR [address] [place] [address] PCP - General 07/25/22
--- OUTSIDE RECORDS SUMMARY | 2025-03-17 08:21 | XMS_ITS | Encounter Summary ---
Author Organization [facility] Address Formerly [facility] [place] [address] Care Team Providers Care Cheese Cook Name Role Phone Erin Alston NP Primary Care Provider [phone] Ze Peck MD Unavailable [phone] Encounter Details Date Type Department Care Team (Late st Contact Info) Description 10/05/2022 MyChart Message Enc [facility] Medical Group Family and Sports Medicine - [place] [address] [place] [address] Erin Alston, ORE ROASTER [address] [place] [address] Foot Social History Tobacco Use Types Packs/Day Years [...] Sex Assigned at Female 07/19/2024 9:18 AM SUSTAINABILITY SPECIALIST Legal Sex Female 1:37 AM CDT Gender Identity Not on file Sexual Orientation Not on file COVID-19 Exposure Response Date Recorded In the last 10 days, have yo u been in contact with someone who was confirmed or suspected to have Coronavirus/COVID-19? No / Unsure 09/30/2022 8:37 AM CDT documented as of this encounter Functional Status [...] documented in this encounter Progress Notes * Erin Alston NP - 10/06/2022 6:21 AM CDT It may be a plantar fasciitis. You may look at splints for that to wear at night. documented in this encounter Plan of Treatment Upcoming Encounters Date Type Department Care Team (Late st Contact Info) Description 07/22/2025 10:45 AM SUSTAINABILITY SPECIALIST Office Visit [facility], [address] [address] Inge Farr, ORE ROASTER-C Three [facility]. [address] [place], [place] [id number] documented as of this encounter Goals Goal [...] Total Score: 3 07/14/19 23 11:58 AM SUSTAINABILITY SPECIALIST documented as of this encounter Care Teams Cheese Cook Relationship Specialty Start Date End Date Erin Alston NP PCP - General 09/10/16 Ze Peck MD Three [facility]. [address] [place] [address] [place] Filter Tip Inspector CARDIOVASCULAR DISEASE 03/23/18 documented as of this encounter
--- OUTSIDE RECORDS SUMMARY | 2025-03-17 08:21 | XMS_ITS | Encounter Summary ---
Author Organization [facility] Address [facility] [place] [address] Care Team Providers Care Amusement Centre Manager Name Role Phone Erin Alston NP Primary Care Provider [phone] Ze Peck MD Unavailable [phone] Encounter Details Date Type Department Care Team (Late st Contact Info) Description 04/09/2024 MyChart Message Enc [facility] Medical Group Multispecialty Care - [facility] [address] [facility], [address] [place] [address] Nelson Stern PA-C [address] [facility] [address] [place] [address] Pain Social History Tobacco Use Types Packs/Day Years [...] Sex Assigned at Female 07/19/2024 9:18 AM GUT SNATCHER Legal Sex Female 1:37 AM CDT Gender [...] st Contact Info) Description 07/22/2025 10:45 AM GUT SNATCHER Office Visit [facility] [address] [place], [place] [address] Inge Farr NP-C Three [facility]. [facility] [address] [place], [place] [phone] documented as of this encounter Goals Goal [...] Total Score: 0 04/08/20 24 10:56 AM GUT SNATCHER documented as of this encounter Care Teams Amusement Centre Manager Relationship Specialty Start Date End Date Erin Alston WATER FILTERER HELPER PCP - General 09/10/16 Ze Peck MD Three [facility]. [address] [address] [place] Shear Operator CARDIOVASCULAR DISEASE 03/23/18 documented as of this encounter
--- OUTSIDE RECORDS SUMMARY | 2025-03-17 08:21 | XMS_ITS | Encounter Summary ---
Author Organization [facility] Address [facility] [place] [address] Care Team Providers Care Spinner Cap Frame Name Role Phone Erin Alston NP Primary Care Provider [phone] Ze Peck MD Unavailable [phone] Encounter Details Date Type Department Care Team (Late Contact Info) Description 10/27/2018 Abstract [facility] CONVERSION [address] [place], [place] [id number] , Generic Conversion, Social History Tobacco Use Types Packs/Day Years Used Date Smoking Tobacco: Every Day Cigarettes 1 32.8 Started: 1992 Smokeless Tobacco: Never Alcohol Use Standard Drinks/Week Comments No 0 (1 standard drink = 0.6 oz pur e alcohol) AUDIT-C Answer Date Recorded Frequency of Alcohol Consumption Never 04/03/2018 Average Number of Drinks Not on file 018 Frequency of Binge Drinking Not on file 03/22 Comments No Sex and Gender Information Value Date Recorded Sex Assigned at Female 07/19/2024 9:18 AM MEDICAL ADMINISTRATIVE Legal Sex Female 1:37 AM CDT Gender Identity Not on file Sexual Orientation Not on file documented as of this encounter Plan of Treatment Upcoming Encounters Date Type Department Care Team (Late Contact Info) Description 07/22/2025 10:45 AM MEDICAL ADMINISTRATIVE Office Visit [facility] THREE [facility], [address] [address] Inge Farr, FLOTATION TENDER-C Three [facility]. [address] [place] [address] documented as of this encounter Visit Diagnoses Not on filedocumented in this encounter Additional Health Concerns Infection Onset Date Last Indicated Resolved Time COVID-19 Rule Out 11/23/2021 11/23/2021 11/23/2021 5:31 PM CDT MRSA Comment:11/23/21 jing (JK) 11/24/2021 11/24/2021 documented as of this encounter Care Teams Spinner Cap Frame Relationship Specialty Start Date End Date Erin Alston NP PCP - General 09/10/16 Ze Peck MD [address] [place] [address] [place] Human Services Supervisor CARDIOVASCULAR DISEASE 03/23/18 documented as of this encounter
--- OUTSIDE RECORDS SUMMARY | 2025-03-17 08:21 | XMS_ITS | Encounter Summary ---
Author Organization [facility] Address [facility] [place] [address] Care Team Providers Care Custom Garment Designer Name Role Phone Erin Alston NP Primary Care Provider [phone] Ze Peck MD Unavailable [phone] Encounter Details Date Type Department Care Team (Late st Contact Info) Description 11/03/2017 Abstract [facility] Conversion Estella Lizarraga, JEREMY-SHELBIE [address] [facility], [place] [address] Social History Tobacco Use Types Packs/Day Years Used Date Smoking Tobacco: Smoker, Current Status Unknown Comments Unknown Sex and Gender Information Value Date Recorded Sex Assigned at Female 07/19/2024 9:18 AM JAVA GROOVY DEVELOPER Legal Sex Female 1:37 AM CDT Gender Identity Not on file Sexual Orientation Not on file documented as of this encounter Miscellaneous Notes * Letter - JOSHUA Presley - 11/03/2017 12:00 AM CDT 06 November 2017 Harmony Garcia [address] [place] [address] Dear Harmony Garcia, We noticed that you did not keep your appointment with Estella Lizarraga APRN and we are concerned about your health. Your appointment was scheduled on 11/03/2017. This is the second time you have missed or cancelled an appointment without sufficient notice. We are also concerned about your health and any issues that may be neglected since we were not able to discuss your care. For your well-being, we ask you to partner with us and commit to the treatment recommended to bring you better health.We would be happy to help with issues preventing you from attending your appointments. If your appointment has not been rescheduled, please contact us as soon as possible at to reschedule your appointment. When you miss appointments, we are not able to help other patients during the time reserved for you. Per our organization's no-show policy, if at least 24 hours' notice is not given two times in one year, the practice will impose a $25 no-show fee. Payment of $25 is expected prior to your next non-emergent appointment. Unfortunately, if you do not keep your next appointment, we will have to dismiss you from the practice to ensure our time is available to provide all our patients the care and attention they deserve.We are truly concerned about your health care and hope we will continue your care together. We lookforward to seeing you soon. Sincerely, [facility] cc: Patient Medical Record GROOVY DEVELOPER documented in this encounter Plan of Treatment Upcoming Encounters Date Type Department Care Team (Late st Contact Info) Description 07/22/2025 10:45 AM JAVA GROOVY DEVELOPER Office Visit [facility], [facility] [address] [place] [address] Inge Farr NP-C Three [facility]. [address] [place] [address] documented as of this encounter Visit Diagnoses Not on filedocumented in this encounter Additional Health Concerns Infection Onset Date Last Indicated Resolved Time COVID-19 Rule Out 11/23/2021 11/23/2021 11/23/2021 5:31 PM CDT MRSA Comment:11/23/21 jing (HOLLAND) 11/24/2021 11/24/2021 documented as of this encounter Care Teams Custom Garment Designer Relationship Specialty Start Date End Date Erin Alston NP PCP - General 09/10/16 Ze Peck MD Three [facility]. [address] [address] Locust Director Hris CARDIOVASCULAR DISEASE 03/23/18 documented as of this encounter
--- OUTSIDE RECORDS SUMMARY | 2025-03-17 08:21 | XMS_ITS | Encounter Summary ---
Author Organization [facility] Address [address] [place] [address] Care Team Providers Care Senior Analyst Market Intelligence Name Role Phone Erin Alston NP Primary Care Provider [phone] Ze Peck MD Unavailable [phone] Encounter Details Date Type Department Care Team (Late st Contact Info) Description 03/08/2023 [employer] Message Enc [facility] THREE [facility], [address] [address] Ze Peck MD Three [facility]. [address] [address] Upcoming appt Social History Tobacco Use Types Packs/Day Years [...] Sex Assigned at Female 07/19/2024 9:18 AM WHEEL ALIGNMENT TECHNICIAN Legal Sex Female 1:37 AM CDT Gender [...] documented in this encounter Progress Notes * Denice Velazquez RN - 03/08/2023 3:12 PM CDT Please reach out to patient to reschedule. documented in this encounter Plan of Treatment Upcoming Encounters Date Type Department Care Team (Late st Contact Info) Description 07/22/2025 10:45 AM WHEEL ALIGNMENT TECHNICIAN Office Visit [facility] THREE [facility], [address] [place] [address] Inge Farr NP-C Three [facility]. [address] [place], [place] [id number] documented as of this encounter Goals Goal [...] Total Score: 3 07/14/19 23 11:58 AM WHEEL ALIGNMENT TECHNICIAN documented as of this encounter Care Teams Senior Analyst Market Intelligence Relationship Specialty Start Date End Date Erin Alston, CURATOR ZOOLOGICAL MUSEUM PCP - General 09/10/16 Ze Peck MD [facility]. [address] [address] [place] Litigation Services Manager CARDIOVASCULAR DISEASE 03/23/18 documented as of this encounter
--- OUTSIDE RECORDS SUMMARY | 2025-03-17 08:21 | XMS_ITS | Encounter Summary ---
Author Organization [facility] Address [facility] [place] [address] Care Team Providers Care Die Repairer Trimmer Dies Name Role Phone Erin Alston CRIMINAL LAWYER Primary Care Provider [phone] Ze Peck MD Unavailable [phone] Encounter Details Date Type Department Care Team (Late st Contact Info) Description 06/28/2023 MyChart Message Enc [facility] Medical Group Family and Sports Medicine - [place] [address] [place] [address] Erin Alston, CRIMINAL LAWYER [address] [place] [address] Cough Social History Tobacco Use Types Packs/Day Years [...] Sex Assigned at Female 07/19/2024 9:18 AM DOCTOR OF AUDIOLOGY Legal Sex Female 1:37 AM CDT Gender [...] Progress Notes * Erin Alston NP - 06/29/2023 5:51 AM CST ov OR OF AUDIOLOGY documented in this encounter Plan of Treatment Upcoming Encounters Date Type Department Care Team (Late st Contact Info) Description 07/22/2025 10:45 AM DOCTOR OF AUDIOLOGY Office Visit [facility], [address] [place], [place] [phone] Inge Farr NP-C [facility]. [address] [place], [place] [id number] documented as of this encounter Goals Goal Patient Goal Type Associated Problems Recent Progress Patient-Stated? Author Health - patient able to perform ADLs independently General Cheri Hall RN documented as of this encounter Visit Diagnoses Not on filedocumented in this encounter Additional Health Concerns Infection Onset Date Last Indicated Resolved Time MRSA Comment:11/23/21 jing (HOLLAND) 11/24/2021 11/24/2021 Assessment Noted Time PHQ-9 Depression Total Score: 3 07/14/19 23 11:58 AM DOCTOR OF AUDIOLOGY documented as of this encounter Care Teams Die Repairer Trimmer Dies Relationship Specialty Start Date End Date Erin Alston NP PCP - General 09/10/16 Ze Peck MD [facility]. [address] [address] [place] Continuous Washer Operator CARDIOVASCULAR DISEASE 03/23/18 documented as of this encounter
--- OUTSIDE RECORDS SUMMARY | 2025-03-17 08:21 | XMS_ITS | Encounter Summary ---
Author Organization [facility] System Address [facility] [place] [address] Care Team Providers Care Industrial Spraypainter Name Role Phone Erin Alston DRIER Primary Care Provider [phone] Ze Peck MD Unavailable [phone] Encounter Details Date Type Department Care Team (Late st Contact Info) Description 02/26/2024 MyChart Message Enc [facility] Medical Group Family and Sports Medicine - [place] [address] [place] [address] Erin Alston, DRIER [address] [place] [address] Eye problems Social History Tobacco Use Types Packs/Day Years [...] Date Recorded Patient Health Questionnaire-2 Score 0 01/30/2024 Comments No Sex and Gender Information Value Date Recorded Sex Assigned at Female 07/19/2024 9:18 AM ENGINEERING AND SCIENTIFIC PROGRAMMER Legal Sex Female 1:37 AM CDT Gender [...] st Contact Info) Description 07/22/2025 10:45 AM ENGINEERING AND SCIENTIFIC PROGRAMMER Office Visit [facility], [address] [place], [place] [phone] Inge Farr DRIER-C [facility]. [address] [place] [address] documented as of this encounter Goals Goal [...] Assessment Noted Time PHQ-9 Depression Total Score: 2 01/30/20 24 11:01 AM CDT documented as of this encounter Care Teams Industrial Spraypainter Relationship Specialty Start Date End Date Erin Alston NP PCP - General 09/10/16 Ze Peck MD [facility]. [address] [address] [place] Surveillance Monitor CARDIOVASCULAR DISEASE 03/23/18 documented as of this encounter
--- OUTSIDE RECORDS SUMMARY | 2025-03-17 08:22 | XMS_ITS | Encounter Summary ---
Author Organization [facility] System Address [facility] [place] [address] Care Team Providers Care Wire Tester Name Role Phone Erin Alston SPORTS MEDIA Primary Care Provider [phone] Ze Peck MD Unavailable [phone] Encounter Details Date Type Department Care Team (Late st Contact Info) Description 01/07/2025 MyChart Message Enc [facility] Medical Group Family and Sports Medicine - [place] [address] [place] [address] Erin Alston, SPORTS MEDIA [address] [place] [address] Cough Social History Tobacco Use Types Packs/Day [...] Sex Assigned at Female 07/19/2024 9:18 AM COLOR TELEVISION CONSOLE MONITOR Legal Sex Female 1:37 AM CDT Gender [...] st Contact Info) Description 07/22/2025 10:45 AM COLOR TELEVISION CONSOLE MONITOR Office Visit [facility], [address] [place], [place] [phone] Inge Farr SPORTS MEDIA-C [facility]. [address] [place] [address] documented as of this encounter Goals Goal [...] Total Score: 0 04/08/20 24 10:56 AM COLOR TELEVISION CONSOLE MONITOR documented as of this encounter Care Teams Wire Tester Relationship Specialty Start Date End Date Erin Alston NP PCP - General 09/10/16 Ze Peck MD [facility]. [address] [address] [place] Substation Electrician Supervisor CARDIOVASCULAR DISEASE 03/23/18 documented as of this encounter
--- OUTSIDE RECORDS SUMMARY | 2025-03-17 08:22 | XMS_ITS | Encounter Summary ---
Author Organization [facility] Address [facility] [place] [address] Care Team Providers Care Comber Operator Name Role Phone Erin Alston NP Primary Care Provider [phone] Ze Peck MD Unavailable [phone] Reason for Visit * Reason Onset Date Comments Schedule Surgery 02/27/2025 Encounter Details Date Type Department Care Team (Late st Contact Info) Description 02/27/2025 Telephone [facility] Day Services [address] [place] [address] Yvonne Garcia, RN Schedule Surgery Social History Tobacco Use Types Packs/Day Years Used Date Smoking Tobacco: Every Day Cigarettes 1 32.8 Started: 1992 Passive Smoke Exposure: Current Smokeless Tobacco: Never Alcohol Use Standard Drinks/Week [...] Sex Assigned at Female 07/19/2024 9:18 AM AUDIO VISUAL COLLECTIONS COORDINATOR Legal Sex Female 1:37 AM CDT Gender [...] st Contact Info) Description 07/22/2025 10:45 AM AUDIO VISUAL COLLECTIONS COORDINATOR Office Visit [facility], [facility] [address] [place], [place] [address] Inge Farr ENVIRONMENTAL HEALTH MANAGER-C [facility]. [facility] [address] [place] [address] documented as of this encounter Goals Goal [...] Total Score: 0 04/08/20 24 10:56 AM AUDIO VISUAL COLLECTIONS COORDINATOR documented as of this encounter Care Teams Comber Operator Relationship Specialty Start Date End Date Erin Alston NP PCP - General 09/10/16 Ze Peck MD Three [facility]. [address] [address] [place] Doughnut Maker CARDIOVASCULAR DISEASE 03/23/18 documented as of this encounter
--- OUTSIDE RECORDS SUMMARY | 2025-03-17 08:22 | XMS_ITS | Encounter Summary ---
Author Organization [facility] Address [address] [place] [address] Care Team Providers Care Scallop Cutter Name Role Phone Erin Alston NP Primary Care Provider [phone] Ze Peck MD Unavailable Encounter Details Date Type Department Care Team (Late st Contact Info) Description 12/28/2021 Abstract [facility] THREE [facility], [address] [address] Louann Raymundo MA Social History Tobacco Use Types Packs/Day Years Used Date Smoking Tobacco: Every Day Cigarettes 1 32.8 Started: 1992 Smokeless Tobacco: Never Comments:smoking less since surgery Alcohol Use Standard Drinks/Week Comments Yes 0 (1 standard drink = 0.6 oz pur e alcohol) weekends AUDIT-C Answer Date Recorded Frequency of Alcohol [...] Sex Assigned at Female 07/19/2024 9:18 AM IT WEB DEVELOPMENT CONSULTANT Legal Sex Female 1:37 AM CDT Gender Identity Not on file Sexual Orientation Not on file COVID-19 Exposure Response Date Recorded In the last 10 days, have destin estrella been in contact with someone who was confirmed or suspected to have Coronavirus/COVID-19? No / Unsure 12/23/2021 8:42 AM CDT documented as of this encounter [...] st Contact Info) Description 07/22/2025 10:45 AM IT WEB DEVELOPMENT CONSULTANT Office Visit [facility], [address] [place], [place] [address] Inge Farr NP-C [facility]. [facility] [address] [place], [place] [address] documented as of this encounter Goals Goal Patient Goal Type Associated Problems Recent Progress Patient-Stated? Author Health - patient able to perform ADLs independently General No Cheri Garrett RN documented as of this encounter Procedures Procedure Name Priority Date/Time Associated Diagnosis Comments LIPID PANEL Routine 12/18/2023 COMPREHENSIVE METABOLIC PANEL Routine 05/20/2023 CBC, MANUAL DIFF Routine 05/20/2023 PROTIME (OUTSIDE LAB) Routine 05/04/2023 COMPREHENSIVE METABOLIC PANEL Routine 05/04/2023 CBC, MANUAL DIFF Routine 05/04/2023 COMPREHENSIVE METABOLIC PANEL Routine 04/10/2023 LIPID PANEL Routine 01/16/2023 LIPID PANEL Routine 06/07/2022 LIPID PANEL Routine 12/27/2021 documented in this encounter Results * LIPID PANEL (12/18/2023) CHOLESTEROL 116 HDL 24 TRIGLYCERIDES 161 NON HDL CHOLESTEROL 92 LDL (CALCULATED) 68 12/18/2023 us Default History Genericprovider LABORATORY Final Result * COMPREHENSIVE METABOLIC PANEL (05/20/2023) BUN 11 CREATININE S/P/B 0.74 0.5 - 1.0 GFR ESTIMATE 100 us Default History Genericprovider LABORATORY Edited Result - Final * CBC, MANUAL DIFF (05/20/2023) HCT 44.0 us Default History Genericprovider LABORATORY Edited Result - Final * PROTIME (OUTSIDE LAB) (05/04/2023) PROTIME 10.2 INR 1.0 05/04/2023 us Default History Genericprovider LAB-OUTSIDE/ABST RACTED Final Result * COMPREHENSIVE METABOLIC PANEL (05/04/2023) SODIUM S/P/B 136 GLUCOSE 98 mg/dL BUN 12 CREATININE S/P/B 0.80 0.5 - 1.0 CALCIUM S/P/B 10.5 POTASSIUM S/P/B 4.3 CHLORIDE S/P/B 107 GFR ESTIMATE 91 Default History Genericprovider LABORATORY Edited Result - Final * CBC, MANUAL DIFF (05/04/2023) WBC 7.2 HGB 15.0 HCT 44.4 PLT 222 Default [facility] Genericprovider LABORATORY Edited Result - Final * COMPREHENSIVE METABOLIC PANEL (04/10/2023) BUN 10 CREATININE S/P/B 0.80 0.5 - 1.0 GFR ESTIMATE 91 Default [facility] Genericprovider LABORATORY Edited Result - Final * LIPID PANEL (01/16/2023) CHOLESTEROL 118 HDL 27 TRIGLYCERIDES 118 NON HDL CHOLESTEROL 91 LDL (CALCULATED) 71 01/16/2023 [facility] Genericprovider LABORATORY Final Result * LIPID PANEL (06/07/2022) CHOLESTEROL 120 HDL 33 TRIGLYCERIDES 113 NON HDL CHOLESTEROL 87 LDL (CALCULATED) 67 06/07/2022 Default [facility] Genericprovider LABORATORY Final Result * LIPID PANEL (12/27/2021) CHOLESTEROL 103 HDL 28 TRIGLYCERIDES 134 NON HDL CHOLESTEROL 75 LDL (CALCULATED) 53 12/27/2021 [facility] LABORATORY Final Result documented in this encounter Visit Diagnoses Not on filedocumented in this encounter Additional Health Concerns Infection Onset Date Last Indicated Resolved Time MRSA Comment:11/23/21 jing (HOLLAND) 11/24/2021 11/24/2021 documented as of this encounter Care Teams Scallop Cutter Relationship Specialty Start Date End Date Erin Alston NP PCP - General 09/10/16 Ze Peck MD Three [facility]. [address] [address] [place] Battery Service Technician CARDIOVASCULAR DISEASE 03/23/18 documented as of this encounter
--- OUTSIDE RECORDS SUMMARY | 2025-03-17 08:22 | XMS_ITS | Encounter Summary ---
Author Organization [facility] Address [address] [place] [address] Care Team Providers Care Inspector Salvage Name Role Phone Erin Alston NP Primary Care Provider [phone] Ze Peck MD Unavailable [phone] Encounter Details Date Type Department Care Team (Late st Contact Info) Description 08/30/2021 Prep for Procedure [facility] One Day Services [id number] [place] [address] [place] [address] [facility] [address] [place] [address] Social History Tobacco Use Types Packs/Day Years Used Date Smoking Tobacco: Every Day Cigarettes 1 32.8 Started: 1992 Smokeless Tobacco: Never Alcohol Use Standard Drinks/Week Comments Yes 0 (1 standard drink = 0.6 oz pur e alcohol) Rarely AUDIT-C Answer Date Recorded Frequency of Alcohol [...] Sex Assigned at Female 07/19/2024 9:18 AM ASSISTANT GROCERY Legal Sex Female 1:37 AM CDT Gender Identity Not on file Sexual Orientation Not on file documented as of this encounter Plan of Treatment Upcoming Encounters Date Type Department Care Team (Late st Contact Info) Description 07/22/2025 10:45 AM ASSISTANT GROCERY Office Visit [facility] THREE [facility], [address] [place] [address] Inge Farr NP-C Three [facility]. [address] [place], [place] [phone] documented as of this encounter Results * Pre-Surgical Coronavirus (COVID-19) PCR (11/23/2021 8:28 AM CDT) SPECIMEN SOURCE NASAL 8:06 AM CDT [facility] CORONAVIRUS SARS COV 2 PCR (RESP) NEGATIVE NEGATIVE 11/23/2021 5:31 PM CDT [facility] LAB Comment: THE SARS-CoV-2 TEST HAS BEEN AUTHORIZED BY THE FDA UNDER AN EUA FOR USE BY AUTHORIZED LABORATORIES. PERFORMED BY NUCLEIC ACID AMPLIFICATION PCR FIRST TEST UNKNOWN 11/23/2021 8:06 AM CDT [facility] EMPLOYED IN HEALTHCARE NO 11/23/2021 8:06 AM CDT [facility] SYMPTOMATIC DEFINED BY CDC UNKNOWN 11/23/2021 8:06 AM CDT [facility] HOSPITALIZATION STATUS NO 11/23/2021 8:06 AM CDT [facility] PATIENT IN ICU NO 11/23/2021 8:06 AM CDT [facility] RESIDENT OF [facility] NO 11/23/2021 8:06 AM CDT [facility] UNKNOWN 11/23/2021 8:06 AM CDT [facility] NASAL STRUCTURE / Unknown 11/23/2021 8:28 AM CDT us Lawrence Villalpando MD MICROBIOLOGY - GENERAL ORDERABLE S Final Result [facility] ([facility] [address] [place] [address], [place] [phone] [facility] [address] [place] [address], documented in this encounter Visit Diagnoses Diagnosis Preop testing- Primary Preoperative examination, unspecified documented in this encounter Additional Health Concerns Infection Onset Date Last Indicated Resolved Time COVID-19 Rule Out 11/23/2021 11/23/2021 11/23/2021 5:31 PM CDT MRSA Comment:11/23/21 jing (JK) 11/24/2021 11/24/2021 documented as of this encounter Care Teams Inspector Salvage Relationship Specialty Start Date End Date Erin Alston NP PCP - General 09/10/16 Ze Peck MD [address] [place] [address] [place] Preparation Supervisor CARDIOVASCULAR DISEASE 03/23/18 documented as of this encounter
--- OUTSIDE RECORDS SUMMARY | 2025-03-17 08:22 | XMS_ITS | Encounter Summary ---
Author Organization [facility] Address [address] [place] [address] Care Team Providers Care Beauty Culturist Name Role Phone Erin Alston NP Primary Care Provider [phone] Ze Peck MD Unavailable [phone] Encounter Details Date Type Department Care Team (Late st Contact Info) Description 11/15/2021 Prep for Procedure [facility] One Day Services [id number] [place] [address] [place] [address] [facility] [address] [place] [address] Social History Tobacco Use Types [...] Sex Assigned at Female 07/19/2024 9:18 AM CONSULTANT EDUCATION Legal Sex Female 1:37 AM CDT Gender Identity Not on file Sexual Orientation Not on file documented as of this encounter Plan of Treatment Upcoming Encounters Date Type Department Care Team (Late st Contact Info) Description 07/22/2025 10:45 AM CONSULTANT EDUCATION Office Visit [place] [facility] THREE [facility], [address] [place] [address] Inge Farr NP-C Three [facility]. [address] [place] [address] documented as of this encounter Results * PLATELET FUNCTION ASSAY (11/23/2021 7:57 AM CDT) Pathologist [facility] EPINEPHRINE (PLT FUNCT) 85 80 - 184 SEC 11/23/2021 9:24 AM CDT [facility] COLLAGEN / ADP COL/ADP NOT NEEDED. 56 - 102 SEC 11/23/2021 9:24 AM CDT [facility] Comment: NORMAL COLLAGEN/EPI INDICATES NORMAL PLATELET FUNCTION. 11/23/2021 7:57 AM CDT Lawrence Villalpando MD LABORATORY Final Result [facility] [address] [place] [address], [place] [phone] * HEPATIC FUNCTION PANEL (11/23/2021 7:57 AM CDT) TOTAL PROTEIN S/P/B 7.1 6.4 - 8.2 G/DL 11/23/2021 9:29 AM CDT [facility] ALBUMIN S/P/B 3.6 3.4 - 5.0 G/DL 11/23/2021 9:29 AM CDT [facility] BILIRUBIN TOTAL S/P/B 0.8 0.2 - 1.2 MG/DL 11/23/2021 9:29 AM CDT [facility] BILIRUBIN DIRECT S/P/B 0.1 0.0 - 0.20 MG/DL 11/23/2021 9:29 AM CDT [facility] BILIRUBIN INDIRECT S/P/B 0.7 0.0 - 0.9 MG/DL 11/23/2021 9:29 AM CDT [facility] ALKALINE PHOSPHATASE S/P/B 106 50 - 136 U/L 11/23/2021 9:29 AM CDT [facility] AST 19 15 - 37 U/L 11/23/2021 9:29 AM CDT [facility] ALT 38 14 - 55 U/L 11/23/2021 9:29 AM CDT [facility] A/G RATIO 1.0 1.0 - 2.0 RATIO 11/23/2021 9:29 AM CDT [facility] 11/23/2021 7:57 AM CDT us Lawrence Villalpando MD LABORATORY Final Result Performing Organization Address City/State/[facility] Co de Phone Number [facility] [address] [place] [address], * (ABNORMAL) MRSA SCREENING (11/23/2021 7:56 AM CDT) SPEC DESCRIPTION NASAL 11/23/2021 7:51 AM CDT [facility] SPECIAL REQUESTS NO SPECIAL REQUEST 11/23/2021 7:51 AM CDT [facility] CULTURE RESULT POSITIVE METHICILLIN RESISTANT STAPHYLOCOCCUS AUREUS FOLLOW ISOLATION PROTOCOL. (AA) 11/24/2021 9:38 AM CDT [facility] SPECIMEN FROM INTERNAL NOSE / Unknown 11/23/2021 7:56 AM CDT 11/23/2021 7:57 AM CDT us Lawrence Villalpando MD MICROBIOLOGY - GENERAL ORDERABLE S Final Result [facility] [address] [place] [address], documented in this encounter Visit Diagnoses Diagnosis Preop testing- Primary Preoperative examination, unspecified documented in this encounter Additional Health Concerns Infection Onset Date Last Indicated Resolved Time COVID-19 Rule Out 11/23/2021 11/23/2021 11/23/2021 5:31 PM CDT MRSA Comment:11/23/21 nares (JK) 11/24/2021 11/24/2021 documented as of this encounter Care Teams Beauty Culturist Relationship Specialty Start Date End Date Erin Alston NP PCP - General 09/10/16 Ze Peck MD Three [facility]. [address] [place] [address] [place] Retort Or Condenser Press Operator CARDIOVASCULAR DISEASE 03/23/18 documented as of this encounter
--- OUTSIDE RECORDS SUMMARY | 2025-03-17 08:22 | XMS_ITS | Encounter Summary ---
Author Organization [facility] Address formerly [facility] [place] [address] Care Team Providers Care Advertising Assistant Name Role Phone Erin Alston TRAILER DRIVER Primary Care Provider [phone] Ze Peck MD Unavailable [phone] Encounter Details Date Type Department Care Team (Late st Contact Info) Description 02/17/2025 MyChart Message Enc [facility] Medical Group Family and Sports Medicine - [place] [address] [place] [address] Erin Alston, TRAILER DRIVER [address] [place] [address] Cough Social History Tobacco Use Types Packs/Day [...] Sex Assigned at Female 07/19/2024 9:18 AM LACE WEAVER Legal Sex Female 1:37 AM CDT Gender [...] st Contact Info) Description 07/22/2025 10:45 AM LACE WEAVER Office Visit [facility] [address] [place], [place] [phone] Inge Farr NP-C [facility]. [address] [place], [place] [id number] documented as of this encounter Goals Goal [...] Total Score: 0 04/08/20 24 10:56 AM LACE WEAVER documented as of this encounter Care Teams Advertising Assistant Relationship Specialty Start Date End Date Erin Alston NP PCP - General 09/10/16 Ze Peck MD [facility]. [address] [address] [place] Clinical Product Manager CARDIOVASCULAR DISEASE 03/23/18 documented as of this encounter
--- OUTSIDE RECORDS SUMMARY | 2025-03-17 08:22 | XMS_ITS | Data Portability ---
Author Organization [facility] [place] Address [address] [place] [address] [place] [address] Care Team Providers Care Lime Kiln Tender Name Role Phone JOSE DE JESUS CHINCHILLA Primary Care Provider [phone] Assessment Encounter Date Assessment Date Assessment LastModified by Organization Details LastModified Time 09/25/2023 09/25/2023 Annual gynecological exam performed. Patient will come back in a year unless there are new symptoms. [email or web address] Not available 09/25/2023 10:11:39 Plan of Treatment Reminders Order Date Submit Date Provider Last Modified By Organization Details Last Modified Time Details Appointments [facility] 2024 09:45A Sandy LYNN MD Not available Not available Not available Lab None recorded. Referral None recorded. Procedures None recorded. Surgeries None recorded. Imaging US, pelvis 2023 [address], [address], [place], [address], 04/16/2024 18:14:52 US, transvagi nal [address], [address], [place], [address], 04/16/2024 18:14:52 MAMMO, diagnosti c, digital, bilateral [address] [facility], [address], [place], [address], 05/24/2024 11:55:13 US, breast, unilatera l, w/ axilla [address] [facility], [address], [facility] [address], [place], [address], 05/24/2024 11:55:13 Medication Orders None recorded. Patient TargetsNo targets recorded. Patient InstructionsNo instructions recorded. Reason for Referral None Reported. Results Created Date Observation Date Name Description Value Unit Range Abnormal Flag Note LastModifiedBy Organization Detail LastModifiedTime 09/25/19 24 09/25/2023 IMAGE GUIDE D PAP AND HPV REGAR DLESS image guided Pap, HPV regardless of Pap result SEE RESULT S BELOW CASE REPOR T: Cytol ogy Gynec ologi marcello Repor t Case: [id number] Aut[address] kanchan frazier Provi nehal: Peggy Lynn MD Colle cted: 09/24 1106 Order ing Locat ion: [place] Patho logy Recei anderson: 09/25 0858 First Scree n: Merle Vasquez , [place] Patho logis t: Lance Atkins MD Speci men: Screeunice trang Pap - Image d, Cervi x STATE MENT OF ADEQU ACY: Satis facto ry for evalu ation Trans forma tion zone compo nent prese nt ----- ----- ----- ----- ----- ----- ----- ----- ----- ----- ----- ----- ----- ----- ----- ----- ----- ---- FINAL DIAGN OSIS: Negat sanjay for Intra epith elial Edyta snell or Gregg leavitt (NIL) . Infla mmato ry cell young es (incl udes typic al repvenu r). Elect orin cutler by Lance Atkins MD on 2023 at 9:46 AM ----- ----- ----- ----- ----- ----- ----- ----- ----- ----- ----- ----- ----- ----- ----- ----- ----- ---- HPV RESUL TS: HPV mRNA E6/E7 : No HPV mRNA Detec bill NOTE: This high risk HPV mRNA assay detec ts fourt een high- risk HPV types (16, 18, 31, 33, 35, 39, 45, 51, 52, 56, 58, 59, 66, 68) witho ut diffe renti ation . COMME NT: This speci men was revie wed by a Cytot echno logis t and/o r Patho logis t (as indic ated in this repor t) after evalu ation using the Thinp rep Imagi ng Syste m. CLINI MARCELLO INFOR MATIO N: Menst rual Statu s: LMP (if appli cable ): Clini marcello Histo ry/Pr eviou s Pap: Type of Neopl beth (if appli cable ): Signi fican t Clini marcello Findi ngs: Other Histo ry: Hormo evans (if appli cable ): PAP EDUCA EMMETT L NOTE: The Pap Test is a scree lima test with an inher ent false negat sanjay rate. Liqui d-bas ed sampl ing may decre ase, but will not elimi shazia, false negat sanjay resul ts. A negat sanjay resul t does not precl ude the prese nce and/o r devel opmen t of disea se, since the prese nce of abnor mal cells in the sampl e depen ds on the locat ion of the lesio n and sampl ing techn ique. Louann nued regul ar scree lima is the best metho d of cance r preve ntion . If repor bill cytol ogic findi ng do not corre late with physi marcello and/o r histo rical findi ngs, furth er inves tigat ion is recom froylan d, as clini elbert forde nted. Not Available [facility] (Lab) [address], [place], [address], 10/01/2023 10:48:34 04/16/20 24 04/16/2024 US, pelvi s No observ ation record ed. [email or web address] [place] [address], [place], [address], 04/16/2024 14:52:16 04/16/20 24 04/16/2024 US, trans vagin al No observ ation record ed. [email or web address] [place] [address], [place], [address], 04/16/2024 14:52:25 04/16/20 24 04/16/2024 US, pelvi s No observ ation record ed. [email or web address] [address], [place], [address], 04/16/2024 18:28:00 05/24/19 25 09/05/2023 MAMMO , diagn ostic , digit al, bilat eral No observ ation record ed. [facility] [address], [place], [address], 05/25/2024 19:02:36 Result Notes None recorded. Problems Name Problem SNOMED Code Status Onset Date Resolution Date Notes Provider Name and Address Organization Details Recorded Time Contrace ptive sheath status 083929167 Completed 201812/03/2020 Encounter for initial prescript ion of other contracep tives;Pra ctice ID: 0001 Brianne Flory [facility] 10:29:39 Pelvic and perineal pain 383386148 Completed 201812/03/2020 Pelvic and perineal pain;Prac kevan ID: [address] [facility] 10:29:50 Disorder of uterus 18535470 Completed 201805/03/2021 Noninflam matory disorder of uterus, unspecifi ed;Practi ce ID: [address] [facility] 1 22:03:53 Cyst of ovary Completed 201805/03/2021 Unspecifi ed ovarian cyst, unspecifi ed side;Prac kevan ID: [address] [facility] 22:03:48 Insertio n of intraute rine contrace ptive device Completed 201812/03/2020 Encounter for initial prescript ion of uterin contracep dev;Pract ice ID: [address] [facility] 10:29:47 Procedur e by method Completed 201812/03/2020 Encounter for family planning advice NOS;Recor ded Elsewhere : No Locati on: [facility] So urce: EHR Chron ic: N Practic e ID: 0001 Bill able Time: 10:15:00 AM Brianne Ruth [facility] 1 10:29:43 Clinical finding Completed 201912/03/2020 Abnormal findings on dx imaging of oth body structure s;Recorde d Elsewhere : No Locati on: [facility] So urce: EHR Chron ic: N Practic e ID: 0001 Bill able Time: 08:30:00 AM Brianne Ruth [facility] 1 10:29:36 Problem Notes None recorded. Procedures Surgical History Date Name Laterality Status Provider Name and Address Organization Details Recorded Time 024 Date of Last Mammogram completed [facility] 04/15/2024 12:13:02 024 Date of Last Pap Smear completed Franchesca [facility] 05/30/2024 11:05:29 023 Most Recent Bone Density completed [facility] 09/14/2022 12:49:21 022 Date of Last Colonoscopy completed [facility] 08/30/2023 10:22:27 022 Cholecystectomy completed Franchesca Sprague [facility] 08/30/2023 10:25:47 021 Vulvar Biopsy completed Jose Lynn MD [address], [place], [address], [facility] 04/13/2021 17:20:40 021 biopsy of vulva completed [facility] 05/03/2021 22:09:12 Appendectomy completed Karen Carreonjunito [facility] 09/09/2019 16:00:47 delivery completed Karen vincent [facility] 09/09/2019 16:01:03 Imaging Results None recorded. Procedure Notes None recorded. Medical Equipment None Reported. Allergies Allergen ID Allergen Name Allergen Category Reaction Reaction Severity Criticality Documentation Date Start Date Code Code System Note Provider Name and Address Organization Details Recorded Time 265 indometha farooq medicatio n Not available Not available Not available 09/09/2019 5781 RxNorm [address] [facility] 0 15:58:14 266 methylpre dnisolone medicatio n Not available Not available Not available 09/09/2019 6902 RxNorm Sandi Allred [facility], [facility] 1 13:57:23 Medications Name Sig Start Date Stop Date Status Note LastModified by Organization Details LastModified Time amoxicill in 500 mg capsule TK ONE C PO Q 6 H 04/15 completed Not Available Not Available Not Available methocarb ji 500 mg tablet active Not Available Not Available No t Available levothyro xine 175 mcg tablet TK 1 T PO QD 12/03 completed Not Available Not Available Not Available prednison e 10 mg tablet TAKE 6 TABLETS BY MOUTH TODAY AND DECREASE BY ONE TABLET EACH DAY UNTIL COMPLETE . 04/15 completed Not Available Not Available Not Available atorvasta tin 20 mg tablet TAKE 1 TABLET BY MOUTH EVERY NIGHT AT BEDTIME. STOP 10 MG TABLETS active Not Available Not Available No t Available clindamyc in HCl 300 mg capsule TK 1 C PO BID FOR 7 DAYS 05/30 completed Not Available Not Available Not Available atorvasta tin 10 mg tablet take 1 tablet by oral route every day 05/30 completed Prescrib ed Elsewher e: Yes Loca tion: Augustus dawson [facility] odify By: abhijit dong DateTime : 08/15/19 19 10:30:00 AM Not Available Not Available Not Available azithromy farooq 250 mg tablet TAKE 2 TABLETS BY MOUTH FOR 1 DAY THEN TAKE 1 TABLET BY MOUTH DAILY FOR 4 DAYS active Not Available Not Available No t Available metoprolo l tartrate 100 mg tablet TK 1 T PO 1 HOUR PRIOR TO CTA 08/29 completed Not Available Not Available Not Available fluconazo le 150 mg tablet TAKE 1 TABLET BY MOUTH EVERY 72 HOURS 08/29 completed Not Available Not Available Not Available valacyclo vir 1 gram tablet TAKE 2 TABLETS BY MOUTH EVERY 12 HOURS FOR 1 DAY 09/15 completed Not Available Not Available Not Available prednison e 20 mg tablet TAKE 2 TABLETS BY MOUTH DAILY FOR 5 DAYS active Not Available Not Available No t Available terconazo le 0.8 % vaginal cream Insert 1 applicat orful every day by vaginal route. 09/15 completed Not Available Not Available Not Available clobetaso l 0.05 % topical cream APPLY A THIN LAYER TO THE AFFECTED AREA TWICE DAILY 05/04 completed Not Available Not Available Not Available metronida zole 500 mg tablet 04/13 completed Not Available Not Available Not Available acetamino phen 300 mg-codein e 30 mg tablet TK 1 T PO Q 4 TO 6 H PRN P 05/30 completed Not Available Not Available Not Available ciproflox acin 500 mg tablet 12/03 completed Not Available Not Available Not Available sulfameth oxazole 800 mg-trimet hoprim 160 mg tablet TAKE 1 TABLET BY MOUTH TWICE DAILY FOR 10 DAYS 09/15 completed Not Available Not Available Not Available Wellbutri n SR 100 mg tablet, 12 hr sustained -release take 1 tablet by oral route 2 times every day 08/28 completed Prescrib ed Elsewher e: Yes Loca tion: Augustus dawson [facility] odify By: sanaz Watson r DateTime : 08/15/19 10:30:00 AM Not Available Not Available Not Available triamcino lone acetonide 0.1 % topical cream APPLY TOPICALL Y TO THE AFFECTED AREA TWICE DAILY 04/13 completed Not Available Not Available Not Available amoxicill in 500 mg tablet 08/29 completed Not Available Not Available Not Available ondansetr on 8 mg disintegr ating tablet active Not Available Not Available Not Available amoxicill in 875 mg tablet 09/15 completed Not Available Not Available Not Available omeprazol e 10 mg capsule,d elayed release take 2 capsule by oral route every day before a meal 06/07 completed Prescrib jeovanny Draper e: Yes Loca tion: Augustus dawson [facility] odify By: sanaz Andreayoshi r DateTime : 08/29/19 10:30:00 AM Not Available Not Available Not Available triamcino lone acetonide 0.025 % topical cream 10/11 completed Not Available Not Available Not Available Depo-Prov era 150 mg/mL intramusc ular suspensio n Inject 1 mL every 3 months by intramus cular route. 08/29 completed Not Available Not Available Not Available betametha sone valerate 0.1 % topical cream APPLY TO THE AFFECTED AREA TWICE DAILY FOR 2 WEEKS 04/13 completed Not Available Not Available Not Available hydrocodo ne 7.5 mg-acetam inophen 325 mg tablet TAKE 1 TABLET BY MOUTH EVERY 6 HOURS NEEDED FOR ACUTE PAIN 09/15 completed Not Available Not Available Not Available pantopraz ole 40 mg tablet,de layed release active Not Available Not Available Not Available clotrimaz ole-betam ethasone 1 %-0.05 % topical cream APPLY TO THE AFFECTED AND SURROUND ING AREAS OF SKIN BY TOPICAL ROUTE 2 TIMES PER DAY IN THE MORNING AND EVENING FOR 2 WEEKS 08/29 completed Not Available Not Available Not Available prednison e 50 mg tablet 12/03 completed Not Available Not Available Not Available promethaz ine 25 mg tablet TAKE 1/2 TABLET BY MOUTH EVERY 6 HOURS NEEDED FOR NAUSEA 04/13 completed Not Available Not Available Not Available levothyro xine 150 mcg tablet active Not Available Not Available Not Available nitroglyc max 0.4 mg sublingua l tablet DISSOLVE 1 TABLET UNDER THE TONGUE EVERY 5 MINUTES NEEDED FOR CHEST PAIN MAX OF 3 DOSES active Not Available Not Available No t Available betametha sone dipropion ate 0.05 % topical cream APPLY TO THE AFFECTED AREA TWICE DAILY FOR 2 WEEKS 09/15 completed Not Available Not Available Not Available amoxicill in 250 mg capsule take 1 capsule by oral route every 8 hours 10/18 completed Prescrib ed Elsewher e: Yes Loca tion: [facility] odify By: [email or web address] Shirley r DateTime : 10/12/19 10:15:00 AM Not Available Not Available Not Available mupirocin 2 % topical ointment APPLY TOPICALL Y IN EACH NOSTRIL TWICE DAILY FOR 7 DAYS 09/15 completed Not Available Not Available Not Available ergocalci ferol (vitamin D2) 1,250 mcg (50,000 unit) capsule Take 1 capsule every week by oral route. 04/13 completed Not Available Not Available Not Available polyethyl paula glycol 3350 17 gram/dose oral powder TAKE DIRECTED ON PREP SHEET 04/13 completed Not Available Not Available Not Available methylpre dnisolone 4 mg tablets in a dose pack FOLLOW PACKAGE DIRECTIO NS 04/13 completed Not Available Not Available Not Available albuterol sulfate HFA 90 mcg/actua tion aerosol inhaler INHALE 1 PUFF INTO THE LUNGS FOUR TIMES DAILY active Not Available Not Available No t Available fluticaso ne propionat e 50 mcg/actua tion nasal spray,marty pension SHAKE LIQUID AND USE 2 SPRAYS IN EACH NOSTRIL DAILY 04/15 completed Not Available Not Available Not Available clotrimaz ole 1 % topical cream APPLY TO THE AFFECTED AREA TWICE DAILY FOR 2 WEEKS 09/15 completed Not Available Not Available Not Available loratadin e 10 mg tablet TAKE 1 TABLET BY MOUTH DAILY NEEDED FOR ALLERGIE S active Not Available Not Available No t Available amoxicill in 875 mg-potass ium clavulana te 125 mg tablet TAKE 1 TABLET BY MOUTH EVERY 12 HOURS FOR 7 DAYS active Not Available Not Available No t Available Bactrim 400 mg-80 mg tablet take 1 tablet by oral route every 12 hours 06/07 completed Prescrib ed Elsewher e: Yes Loca tion: Augustus dawson [facility] odify By: sanaz asencio DateTime : 10/19/19 09:15:00 AM Not Available Not Available Not Available medroxypr ogesteron e 150 mg/mL intramusc ular syringe ADMINIST ER 1 ML IN THE MUSCLE EVERY 3 MONTHS 04/15 completed Not Available Not Available Not Available cyclobenz aprine 5 mg tablet 04/15 completed Not Available Not Available Not Available chlorhexi dine gluconate 0.12 % mouthwash SWISH WITH 15 ML FOR 30 SECONDS AND SPIT BID PRN 05/30 completed Not Available Not Available Not Available atorvasta tin 05/30 completed Not Available Not Available Not Available aspirin active Not Available Not Avail able Not Available levothyro xine 05/30 completed Not Available Not Available Not Available Claritin 05/30 completed Not Available Not Available Not Available Symbicort 160 mcg-4.5 mcg/actua tion HFA aerosol inhaler INHALE 2 PUFFS INTO THE LUNGS TWICE DAILY active Not Available Not Available No t Available Tirosint 13 mcg capsule take 1 capsule by oral route every day 05/30 completed Prescrib ed Elsewher e: Yes Loca tion: [facility] odify By: abhijit henleyunteverton DateTime : 08/15/19 10:30:00 AM Not Available Not Available Not Available [facility] USE DIRECTED . active Not Available Not Available No t Available Flonase Allergy Relief 05/30 completed Not Available Not Available Not Available Durlaza 162.5 mg capsule,e xtended release take 1 capsule by oral route every day at the same time each day 05/30 completed Prescrib ed Elsewher e: Yes Loca tion: Augustinaswapna eunice [facility] odify By: abhijit henleyunteverton DateTime : 08/15/19 10:30:00 AM Not Available Not Available Not Available Wixela Inhub 100 mcg-50 mcg/dose powder for inhalatio n INHALE 1 PUFF INTO THE LUNGS TWICE DAILY 04/15 completed Not Available Not Available Not Available Vitals Date Recorded Body height Body mass index (BMI) Body weight Systolic And Diastolic Provider Name and Address Organization Details Last Updated DateTime 05/30/2024 165.1 cm 37.9 kg/m2 515434.06 g 147/80 mm[Hg] Franchesca [facility] 05/30/2024 11:05:07 Date Recorded Body height Body mass index (BMI) Body weight Systolic And Diastolic Provider Name and Address Organization Details Last Updated DateTime 08/30/2023 165.1 cm 38.3 kg/m2 727782.25 g 120/76 mm[Hg] Franc[facility]sca [facility] 08/30/2023 10:16:31 Date Recorded Body height Body mass index (BMI) Body weight Systolic And Diastolic Provider Name and Address Organization Details Last Updated DateTime 09/25/2023 165.1 cm 37.9 kg/m2 351880.06 g 111/74 mm[Hg] Iman Patel [facility] 09/25/2023 10:11:56 Date Recorded Body height Body mass index (BMI) Body weight Systolic And Diastolic Provider Name and Address Organization Details Last Updated DateTime 04/15/2024 165.1 cm 37.4 kg/m2 690907.28 g 127/77 mm[Hg] [facility] 04/15/2024 12:10:44 Social History Question Answer Notes LastModified by Organizat ion Details LastModified Time Tobacco Smoking Status Never Smoker Karen Laurijunito macias [facility] 09/09/2019 16:00:36 In The 14 Days Before Symptom Onset, Have You Had Close Contact With A Laboratory-confirm ed COVID-19 While That Case Was Ill? No Information n ot available 08/30/2023 In The 14 Days Before Symptom Onset, Have You Had Close Contact With A Person Who Is Under Investigation For COVID-19 While That Person Was Ill? No Information not available 08/30/2023 Have You Been To An Area Known To Be High Risk For COVID-19? No Information not available 08/30/2023 Have You Ever Been Counseled For Unhealthy Alcohol Use? No Information not available 09/15/2022 Has Tobacco Cessation Counseling Been Provided? No Information not available 09/15/2022 Sex: Unknown Functional Status Question Answer Note LastModified by Organizat ion Details LastModified Time Do you use any illicit or recreational drugs? No Information not available 09/15/2022 Do you or have you ever used any other forms of tobacco or nicotine? No Information not available 09/15/2022 What is your level of alcohol consumption? Occasional Information not available 09/15/2022 Mental Status None recorded. Family History Relationship Description Onset Age of this Age Resolved Age Notes LastModified by Organization Details LastModified Time Paternal Aunt Malignant neoplasm of breast x2 Not available 2023 10:23:11 Mother Malignant neoplasm of ovary Not available 2023 10:23:30 Sister Malignant neoplasm of trachea Not available 2023 10:00:24 Medical History Condition Response Heart Disease Y Thyroid Problems Y Gynecological History Statement/Question Response Date of Last Mammogram 10/21/2023 Date of LMP Was last menstrual period normal Y STIs/STDs N HPV Vaccine N Current Control Method None Are cycles usually normal Y Date of Last Colonoscopy 05/22/2021 Most Recent Bone Density 06/17/2022 Sexually Active? Y Menses Monthly N Date of Last Pap Smear 09/25/2023 Sexual Problems? N LMP Unknown Obstetrics History GPAL:G 3 P 0 0 0 3 Type Value Living 3 Total 3 Past Encounters Encounter ID Performer Location Encounter Start Date Encounter Closed Date Diagnosis/Indication Diagnosis SNOMED-CT Code Diagnosis ICD10 Code Diagnosis IMO Codes Diagnosis Note [id number] MD Kehinde Palma [address] [address] 09/09/2019 14:58:08 09/09/2019 16:49:49 [id number] MD Kehinde Palma [address] [address] 09/09/2019 14:58:08 09/09/2019 16:49:49 Uterine leiomyoma 30154790 D25.9 This patient is a 43-year-ol d female presents for follow-up on ultrasound findings. Her ultrasound s performed today. Her ultrasound is essentiall y unchanged. One of her fibroids slightly bigger. Her bleeding is reasonable . She denies that it affects her quality of life and activities of daily living. She does not have any accidents. There was some calcificat ions at the myometrial endometria l juncture. These are stable and of the unknown significan ce. We agreed to observe her symptoms. Should she have more bleeding ,she will return. [id number] Jose Lynn MD [place] [address],[place] [address] 05/30/2020 12:11:41 05/30/2020 18:14:51 Low back pain 062929748 M54.5 Pain in pelvis 42436278 R10.2 this patient is a 44-year-ol d female with pelvic pain that has some associated abdominal and lower back pain. She has large uterine fibroids. She wants to resume Depo-Prove ra for contracept ion. She had a bone density scan within the last year that was normal. We should recheck her bone density within 1 year from restarting Depo-Prove ra. Depo-Prove ra was prescribed . She is given instructio ns on starting that. We are going to obtain a pelvic ultrasound and discuss those results at a future visit. We spent over 25 minutes face-to-fa ce discussing 2 complex issues. Contracept ion care management [id number] Z30.9 [id number] Jose Lynn MD [place] [address],[facility] [place] [address] 06/04/2020 14:47:30 06/04/2020 16:04:23 Pain in pelvis 66781051 R10.2 this patient is a 44-year-ol d female with pelvic pain that has some associated abdominal and lower back pain. She has large uterine fibroids. She wants to resume Depo-Prove ra for contracept ion. She had a bone density scan within the last year that was normal. We should recheck her bone density within 1 year from restarting Depo-Prove ra. Depo-Prove ra was prescribed . She is given instructio ns on starting that. We are going to obtain a pelvic ultrasound and discuss those results at a future visit. We spent over 25 minutes face-to-fa ce discussing 2 complex issues. [id number] Jose Lynn MD [place] [address],[place] [address] 06/04/2020 14:47:58 06/04/2020 16:38:10 Abdominal pain 49795807 R10.9 this patient is a 44-year-ol d female with right lower quadrant pain. An ultrasound of the pelvis was performed to rule out any changes in her fibroid uterus or any ovarian cyst. Pelvic ultrasound was unchanged from previous ultrasound s. The patient continues to have pain in it is profoundly affecting her activities of daily living and her quality of life. We agreed to obtain a pelvic ultrasound to determine the etiology of her pain. We spent more than 15 minutes face-to-fa ce. [id number] Jose Lynn MD [place] [address],[place] [address] 06/04/2020 14:57:22 06/05/2020 15:48:45 Contraception care management [id number] Z30.9 Contraception care 81327 5005 Z30.40 [id number] Jose Lynn MD [place] [address],[place] [address] 08/20/2020 11:48:58 08/24/2020 23:50:28 Contraception care management [id number] Z30.9 [id number] Jose Lynn MD [place] [address],[place] [address] 11/16/2020 11:44:25 11/16/2020 20:58:54 Contraception care management 326711864 Z30.9 [id number] Jose Lynn MD [place] [address],[place] [address] 12/03/2020 10:09:19 12/03/2020 11:13:01 Gynecologic examination 33677223 Z01.419 This patient is here for her annual exam. A thorough history was taken. A physical exam was performed. Age appropriat e routine health screening was ordered, performed, and discussed. Recommende d testing was ordered. She was asked to follow up in one year. She will be informed of any test results. Mammogram - [ordered ] Colonoscop y - [done] Cholestero l - [Done ] Pap - today Reduced libido [id number] R 68.82 Candidal vulvovaginitis [id number] B37.3 Possible lichen sclerosis, [id number] Jose Lynn MD [facility] [address],[place] [address] 12/21/2020 10:40:28 12/21/2020 14:16:49 Liver function tests outside reference range 982102535 R94.5 Genital li sousa sclerosus [id number] L90.0 This patient is a 45-year-ol d female presents for follow-up on vulvar Pruritus and skin changes. We had considered lichen sclerosis previously . She is unable treat her vulva with the combinatio n clobetasol in betamethas one. The vulvar pruritus is intense. she does have some very subtle skin changes over the vulva. Was examined. There was inflammati on and in place is the suggestion of thinning and pigment changes. We agreed to treated as though it is lichen sclerosis. She is going to start clobetasol twice a day and return in a month. [id number] Jose Lynn MD [facility] [address],[place] [address] 02/08/2021 10:57:38 02/09/2021 12:48:29 Contraception care management [id number] Z30.9 [id number] Jose Lynn MD [facility] [address],[place] [address] 04/13/2021 16:16:42 04/13/2021 17:25:44 Genital lichen sclerosus [id number] L90.0 The vulvar biopsy was performed. She tolerated the procedure well. She will follow-up in 1 week. [id number] Jose Lynn MD [facility] [address],[place] [address] 04/29/2021 11:06:03 04/30/2021 09:46:18 Candidiasis of skin [id number] B37.2 this patient is a 45-year-ol d female who presents for follow-up after her vulvar biopsy. Vulvar biopsy showed a advanced skin infection of Sol. She has been treated with a week of Diflucan and topical antifungal steroid. She is doing very well. She reports resolution of her symptoms. She will follow up as needed. [id number] Jose Lynn MD [facility] [address],[place] [address] 05/03/2021 11:00:23 05/03/2021 13:03:06 Contraception care management [id number] Z30.9 [id number] Nelda Marie [facility] [address],[place] [address] 05/04/2021 13:50:59 05/04/2021 14:13:51 Screening mammography [id number] Z12.31 N64.4 Today we agreed to additional imaging for right breast burning shooting pain as well as her updated yearly mammo screen. Will call to schedule & once results received will let know next steps in POC. Time spent in visit is a total of 15 mins with at least 50% of visit consisting of counseling and review of plan of care.Addit ional precaution marisa measures were taken to minimize potential exposure to the Covid-19 virus during this patient s visit, including available hand hospitality team member upon arrive, temperatur e check and being asked a series of screening questions. All staff wore face coverings during this encounter, as well as provided additional cleaning and sanitizing of all surfaces, including countertop s, pens, chairs, door handles, light switches, etc, prior to and following the patient s visit. Pain of breast [id number] N64.4 [id number] Nelda Marie [facility] [address],[place] [address] 07/29/2021 11:21:56 07/30/2021 15:46:17 Contraception care management [id number] Z30.9 [id number] Jose Lynn MD [facility] [address],[place] [address] 10/11/2021 15:21:11 10/11/2021 16:13:03 Candidal vulvovaginitis 26930089 B37.3 this patient is a 45-year-ol d female presents for recurring episode of vulvovagin al candidiasi s. She has some extreme vulvar irritation and tenderness . She has white vaginal discharge. She has had episodes of this before. She is examined. There is erythema throughout the vulva. White discharge. Otherwise the distal vagina and vulva are normal. We discussed a monthly treatment of itraconazo le. She will also treat the vulvar skin with steroid /antifunga l cream. [id number] Jose Lynn MD [facility] [address],[place] [address] 10/13/2021 17:15:25 10/13/2021 18:48:03 Pain in pelvis [id number] R10.2 D25.9 this patient is a 44-year-ol d female with pelvic pain that has some associated abdominal and lower back pain. She has large uterine fibroids. She wants to resume Depo-Prove ra for contracept ion. She had a bone density scan within the last year that was normal. We should recheck her bone density within 1 year from restarting Depo-Prove ra. Depo-Prove ra was prescribed . She is given instructio ns on starting that. We are going to obtain a pelvic ultrasound and discuss those results at a future visit. We spent over 25 minutes face-to-fa ce discussing 2 complex issues. [id number] Jose Lynn MD [facility] [address],[place] [address] 10/14/2021 17:04:01 10/15/2021 10:12:40 [id number] Jose Lynn MD [facility] [address],[place] [address] 11/03/2021 15:34:45 11/03/2021 17:39:03 Uterine leiomyoma 12857203 D25.9 Cyst of ovary 90100324 N 83.209 This patient is a 45-year-ol d female presents for follow-up on uterine fibroids and pelvic pain. She had a ultrasound . We reviewed the ultrasound results. She has some calcificat ions the uterine endometriu m. It is a nonspecifi c an insignific ant likely. We discussed that. We discussed a cyst on her right ovary. It is 2.6 cm. It is simple. We agreed that it did not require follow-up on less painful. Talked about her use of Depo-Prove ra for heavy bleeding. We agreed to Depo-Prove ra. She is tolerating it well. She continues to use it. She is going to get a DEXA scan to check her bones. We spent over 20 minutes face-to-fa ce. More than 50% was counseling . She will follow-up with me if her DEXA scan is abnormal. We will discuss treatment options. [id number] Jose Lynn MD [facility] [address],[place] [address] 12/30/2021 10:54:40 12/31/2021 13:03:39 Contraception care management [id number] Z30.9 [id number] Jose Lynn MD [facility] [address],[place] [address] 03/22/2022 09:19:47 03/22/2022 10:37:26 Menorrhagia 724547115 N92.0 [id number] Jose Lynn MD [facility] [address],[place] [address] 06/21/2022 12:24:37 06/21/2022 16:24:07 Menorrhagia 713735429 N92.0 [id number] Jose Lynn MD [facility] [address],[place] [address] 09/05/2022 09:21:41 09/06/2022 10:26:30 Menorrhagia 084141206 N92.0 [id number] Jose Lynn MD [facility] [address],[place] [address] 09/15/2022 09:15:28 09/15/2022 10:12:54 Vulvovaginitis 67141880 N76.0 Mass of left breast [id number] N63.20 This lesion on left breasts axilla/ tail of the breast. US Gynecologi c examination 64711100 Z01.419 Z11.51 This patient is here for her annual exam. A thorough history was taken. A physical exam was performed. Age appropriat e routine health screening was ordered, performed, and discussed. Recommende d testing was ordered. She was asked to follow up in one year. She will be informed of any test results. Mammogram - [ordered ] Colonoscop y - [done] Cholestero l - [Done ] Pap - today [id number] Jose Lynn MD [facility] [address],[place] [address] 12/02/2022 11:23:58 12/02/2022 15:47:44 Menorrhagia [id number] N92.0 [id number] Jose Lynn MD [facility] [address],[place] [address] 03/01/2023 09:46:04 03/01/2023 10:57:30 Menorrhagia 980870561 N92.0 [id number] Jose Lynn MD [facility] [address],[place] [address] 05/26/2023 10:14:17 05/26/2023 10:25:58 Contraception care management 922325500 Z30.9 [id number] Jose Lynn MD [facility] [address],[place] [address] 08/25/2023 10:36:40 08/25/2023 10:52:38 Contraception care management 864604265 Z30.9 [id number] Nelda Marie [facility] [address],[place] [address] 08/30/2023 10:00:38 08/30/2023 10:44:01 Pain of right breast 4042761279 N64.4 N63.10 N60.19 Today we agreed to update diagnostic imaging due to exam findings and family history of breast cancer and fibrocysti c breast issues which increases risks for malignancy . Will await imaging report and reach out with additional plan of care as required. Time spent in visit is a total of 21 mins with at least 50% of visit consisting of counseling and review of plan of care. Family his tory of breast cancer [id number] Z80.3 [id number] Jose Lynn MD [facility] [address],[place] [address] 09/25/2023 09:59:40 09/25/2023 11:11:48 Gynecologic examination 20035983 Z01.419 Z11.51 This patient is here for her annual exam. A thorough history was taken. A physical exam was performed. Age appropriat e routine health screening was ordered, performed, and discussed. Recommende d testing was ordered. She was asked to follow up in one year. She will be informed of any test results. Mammogram - [done ] Colonoscop y - [done] Cholestero l - [Done ] Pap - today [id number] Jose Lynn MD [facility] [address],[place] [address] 04/15/2024 11:14:32 04/15/2024 12:43:29 Pain in pelvis 23627235 R10.2 D25.9 this patient is a 44-year-ol d female with pelvic pain that has some associated abdominal and lower back pain. patient has a history of fibroids. She was treated with Depo. She discontinu ed Depo 9 months ago. We have agreed to perform pelvic ultrasound . She will return after the ultrasound to discuss treatment options. [id number] Jose Lynn MD [facility] [address],[place] [address] 04/16/2024 12:25:13 04/16/2024 14:18:36 Pain in pelvis 08138580 R10.2 this patient is a 44-year-ol d female with pelvic pain that has some associated abdominal and lower back pain. patient has a history of fibroids. She was treated with Depo. She discontinu ed Depo 9 months ago. We have agreed to perform pelvic ultrasound . She will return after the ultrasound to discuss treatment options. [id number] MD Kehinde Palma [address],[place] [address] 05/30/2024 10:46:36 05/30/2024 14:02:02 Menorrhagia 792011107 N92.0 Uterine leiomyoma 137255 05 D25.9 48-year-ol d female with longstandi ng bleeding concerns and pelvic pain presents for ultrasound follow-up. We reviewed her ultrasound results patient has a fibroid uterus and ovarian cysts. We discussed the etiology, natural history, treatment uterine fibroids. Discussed the etiology, natural history, treatment ovarian cyst. We talked about her quality of life and how her bleeding and pain affecting quality of life. Her activities of daily living are affected by her pain and bleeding. We discussed treatment options. Patient has already failed a course of Depo-Prove ra. We discussed definitive treatment options including hysterecto my. We discussed laparoscop ic hysterecto my and robotic hysterecto my. We agreed to possibly move forward with a robotic assisted total hysterecto my with bilateral salpingo-o ophorectom y. She is going to contact us to confirm. I spent or 30 minutes on the patient's care in total. Cyst of ovary 70562976 N 83.209 Pain in pelvis 40104256 R10.2 Health Concerns Section Related Observation LastModified by Organization Detai ls LastModified Time None Recorded Concern Status LastModified by Organization Details LastModified Time None Recorded Advance Directives Directive None Recorded Payers Insurance Date Sequence Insurance Name Policy Number Policy Mcqueen Covered Member ID Mcqueen Member ID Guarantor Name 09/25/2023 1 [facility] PRIOR TO 11/19/2020 (MEDICAID REPLACEMENT - HMO) Harmony Garcia [id number] 03/10/2025 1 [facility] (MEDICAID HMO) [id number] Harmony Garcia [id number] Notes Date Note Type Note Provider Name and Address Organization Details Recorded Time 08/30/19 24 text/htm l Breast PainReported by PatientHPIFor location, patient reportsright,central,in the axilla, andat the nipple. For onset/timing, patient reports>1 month(has woken her up out of her sleep.). For duration, patient reportsintermittent. For quality, patient reportssharp,burning, andaching. For severity, patient reportsmild. For context, patient reportsfamily history of breast cancer(amenorrheic on depo provera injections.). For associated symptoms, patient reportsno fever,no chills,no skin redness,no nipple discharge,no sore nipples,breasts not full, sore, unable to express milk,no breast swelling,no arm pain,no arm swelling,no chest pain,no malaise, andno breast lump.ROS as noted in the HPI Nelda Marie [facility] [address], [place], [address], [facility] 08/30/2023 10:43:13 09/25/19 24 text/htm l Annual GYNReported by PatientHistoryFor history, patient reportsno gynecologic complaints.Genitourinary symptomsFor menstrual cycle, patient reportsnormal menses. For urinary symptoms, patient reportsno hematuriaandno incontinence. For vulva, patient reportsno genital lesion. For vagina, patient reportsnormal vaginal discharge.Breast symptomsFor breast, patient reportsno breast pain.ContraceptionFor current contraception, patient reportssatisfied with current contraceptionandintramuscul ar contraceptive injection.Endocrine symptomsFor sexual complaints, patient reportsno sexual complaintsandno pain during intercourse. For menopausal symptoms, patient reportsno menopausal symptomsandnormal vaginal lubrication.Psychological symptomsFor psychological symptoms, patient reportsno depressionandno anxiety.Preventative measuresFor preventive measures, patient reportsencourage self breast examinationandencourage regular exercise. Jose Lynn MD [address], [place], [address], [facility] 09/25/2023 11:05:08 04/15/20 24 text/htm l 48-year-old female with pelvic pain. The pain is sharp. It is bilateral. It has been present for 2 weeks. It has worsened over time. It does not radiate. Nothing is palliative. Nothing is provocative. She denies any abnormal vaginal discharge. She denies any abnormal vaginal bleeding. She denies any nausea, vomiting, fever, chills. She denies any shortness of breath. Jose Lynn MD [address], [place], [address], [facility] 04/15/2024 12:42:23 05/30/19 25 text/htm l 48-year-old female with longstanding bleeding concerns and pelvic pain presents for ultrasound follow-up. We reviewed her ultrasound results patient has a fibroid uterus and ovarian cysts. We discussed the etiology, natural history, treatment uterine fibroids. Discussed the etiology, natural history, treatment ovarian cyst. We talked about her quality of life and how her bleeding and pain affecting quality of life. Her activities of daily living are affected by her pain and bleeding. We discussed treatment options. Patient has already failed a course of Depo-Provera. We discussed definitive treatment options including hysterectomy. We discussed laparoscopic hysterectomy and robotic hysterectomy. We agreed to possibly move forward with a robotic assisted total hysterectomy with bilateral salpingo-oophorectomy. She is going to contact us to confirm. I spent or 30 minutes on the patient's care in total. Jose Lynn MD [address], [place], [address], [facility] 05/30/2024 13:32:09 OBGyn Episode Ob Episode Information Episode Created Date Number of Fetuses Patient Bloodtype Patient rh Status Prepregnancy Weight lbs Domestic Partner Domestic Partner Phone Father Name Facility Planner Status 09/09/19 20 1 CLOSED Fetus Data First Name Last Name Admitted to NICU Weight (g) Sex Living Outcome Pediatric Complications Fetus ID Race Codes Race Delivery Type M Full Term 652 Vaginal Delivery Mook Calculation Initial Mook Date Initial Exam Date Initial Exam Provider Initial Ultrasound Date Last Menstrual Period Date Ultra Sound Weeks Gestation 0 Eighteen To Twenty Week Mook Update Ultra Sound Date Fundal Height At Umbil Quickening Date Ultra Sound Latest Weeks Gestation Final Mook Confirmed By Final Mook Confirmed Date Final Mook Date Ultra Sound Latest Days Gestation 0 0 Menstrual History Last Menstrual Date Menses Monthly On Bcp Conception Prior Menses Frequency Hcg Plus Date Menarche Onset Age Delivery Information Delivery Date Delivery Type Labor Anesthesia Weeks Gestation Incision Type Labor Labor Length Hrs Delivered By Post Complications Tubal Sterilization Discharge Date Comments 8 Discharge Information Feeding Method Contraceptive Method Maternal HG B and HCT Levels Ob Episode Information Episode Created Date Number of Fetuses Patient Bloodtype Patient rh Status Prepregnancy Weight lbs Domestic Partner Domestic Partner Phone Father Name Facility Planner Status 09/09/19 20 1 CLOSED Fetus Data First Name Last Name Admitted to NICU Weight (g) Sex Living Outcome Pediatric Complications Fetus ID Race Codes Race Delivery Type F Full Term 654 Vaginal Delivery Mook Calculation Initial Mook Date Initial Exam Date Initial Exam Provider Initial Ultrasound Date Last Menstrual Period Date Ultra Sound Weeks Gestation 0 Eighteen To Twenty Week Mook Update Ultra Sound Date Fundal Height At Umbil Quickening Date Ultra Sound Latest Weeks Gestation Final Mook Confirmed By Final Mook Confirmed Date Final Mook Date Ultra Sound Latest Days Gestation 0 0 Menstrual History Last Menstrual Date Menses Monthly On Bcp Conception Prior Menses Frequency Hcg Plus Date Menarche Onset Age Delivery Information Delivery Date Delivery Type Labor Anesthesia Weeks Gestation Incision Type Labor Labor Length Hrs Delivered By Post Complications Tubal Sterilization Discharge Date Comments 1 Discharge Information Feeding Method Contraceptive Method Maternal HG B and HCT Levels Ob Episode Information Episode Created Date Number of Fetuses Patient Bloodtype Patient rh Status Prepregnancy Weight lbs Domestic Partner Domestic Partner Phone Father Name Facility Planner Status 09/09/19 20 1 CLOSED Fetus Data First Name Last Name Admitted to NICU Weight (g) Sex Living Outcome Pediatric Complications Fetus ID Race Codes Race Delivery Type M Full Term 653 Primary Mook Calculation Initial Mook Date Initial Exam Date Initial Exam Provider Initial Ultrasound Date Last Menstrual Period Date Ultra Sound Weeks Gestation 0 Eighteen To Twenty Week Mook Update Ultra Sound Date Fundal Height At Umbil Quickening Date Ultra Sound Latest Weeks Gestation Final Mook Confirmed By Final Mook Confirmed Date Final Mook Date Ultra Sound Latest Days Gestation 0 0 Menstrual History Last Menstrual Date Menses Monthly On Bcp Conception Prior Menses Frequency Hcg Plus Date Menarche Onset Age Delivery Information Delivery Date Delivery Type Labor Anesthesia Weeks Gestation Incision Type Labor Labor Length Hrs Delivered By Post Complications Tubal Sterilization Discharge Date Comments 2 Discharge Information Feeding Method Contraceptive Method Maternal HG B and HCT Levels
--- OUTSIDE RECORDS SUMMARY | 2025-03-17 08:22 | XMS_ITS | Encounter Summary ---
Author Organization [facility] Address Formerly [facility] [place] [address] Care Team Providers Care Mine Administrator Supervisor Name Role Phone Erin Alston BROADCAST ENGINEER Primary Care Provider [phone] Ze Peck MD Unavailable [phone] Encounter Details Date Type Department Care Team (Late st Contact Info) Description 03/12/2025 MyChart Message Enc [facility] Family and Sports Medicine - [place] [address] [place] [address] Erin Alston, BROADCAST ENGINEER [address] [place] [address] Cough Social History Tobacco Use Types Packs/Day [...] Sex Assigned at Female 07/19/2024 9:18 AM RECEPTIONIST CLERK Legal Sex Female 1:37 AM CDT Gender [...] st Contact Info) Description 07/22/2025 10:45 AM RECEPTIONIST CLERK Office Visit [facility], [address] [place], [place] [id number] Inge Farr NP-C [facility]. [address] [place], [place] [id number] documented as of this encounter Goals Goal [...] Total Score: 0 04/08/20 24 10:56 AM RECEPTIONIST CLERK documented as of this encounter Care Teams Mine Administrator Supervisor Relationship Specialty Start Date End Date Erin Alston NP PCP - General 09/10/16 Ze Peck MD [facility]. [address] [address] [place] Sales Representative Publications CARDIOVASCULAR DISEASE 03/23/18 documented as of this encounter
--- OUTSIDE RECORDS SUMMARY | 2025-03-17 08:22 | XMS_ITS | Encounter Summary ---
Author Organization [facility] Address [facility] [place] [address] Care Team Providers Care Quality System Manager Name Role Phone Erin Alston CORPORATE RECYCLING MANAGER Primary Care Provider [phone] Ze Peck MD Unavailable [phone] Encounter Details Date Type Department Care Team (Late st Contact Info) Description 06/11/2021 MyChart Message Enc [facility] Family and Sports Medicine - [place] [address] [place] [address] Erin Alston, CORPORATE RECYCLING MANAGER [address] [place] [address] Headache Social History Tobacco Use Types Packs/Day Years [...] Sex Assigned at Female 07/19/2024 9:18 AM PAIN MANAGEMENT PHYSICIAN Legal Sex Female 1:37 AM CDT Gender Identity Not on file Sexual Orientation Not on file COVID-19 Exposure Response Date Recorded In the last month, have you been in contact with someone who was confirmed or suspected to have Coronavirus / COVID-19? No / Unsure 06/11/2021 3:34 PM PAIN MANAGEMENT PHYSICIAN documented as of this encounter Progress Notes * Erin Alston NP - 06/11/2021 10:06 AM CST Ov MANAGEMENT PHYSICIAN documented in this encounter Plan of Treatment Upcoming Encounters Date Type Department Care Team (Late st Contact Info) Description 07/22/2025 10:45 AM PAIN MANAGEMENT PHYSICIAN Office Visit [facility], [address] [place], [place] [phone] Inge Farr, CORPORATE RECYCLING MANAGER-C [facility]. [address] [place], [place] [id number] documented as of this encounter Visit Diagnoses Not on filedocumented in this encounter Additional Health Concerns Infection Onset Date Last Indicated Resolved Time COVID-19 Rule Out 11/23/2021 11/23/2021 11/23/2021 5:31 PM CDT MRSA Comment:11/23/21 jing (JK) 11/24/2021 11/24/2021 documented as of this encounter Care Teams Quality System Manager Relationship Specialty Start Date End Date Erin Alston NP PCP - General 09/10/16 Ze Peck MD [facility]. [address] [place], [place] [id number] [place] Nitrating Acid Mixer CARDIOVASCULAR DISEASE 03/23/18 documented as of this encounter
--- OUTSIDE RECORDS SUMMARY | 2025-03-17 08:22 | XMS_ITS | Clinical Summary ---
Author Organization [facility] Address [facility] [place] [address] Care Team Providers Care Supervisor Model Making Name Role Phone Erin Alston NP Primary Care Provider Katy Unger MD Unavailable [phone] Allergies Active Allergy Reactions Criticality Noted Date Comments Indomethacin Hives,Unknown 01/24/2013 Medications aspirin EC 81 MG EC tablet Take 1 tablet (81 mg total) by mouth daily. 018 Active nitroglycerin (NITROSTAT) 0.[address] 1 tablet (0.4 mg total) under the tongue every 5 (five) minutes as needed for Chest Pain. Maximum of 3 tab, then call 911 25 tablet 3 025 Active loratadine (CLARITIN) 10 MG tabletIndicat ions:Seasonal allergic rhinitis due to pollen Take 1 tablet (10 mg total) by mouth daily as needed for Allergies. 30 tablet 1 025 Active benzonatate (TESSALON) 100 MG capsule 025 Active Spacer/Aero-H olding Chambers (OPTICHAMBER LEILA-LG MASK) Device see administration instructions. 025 Active albuterol sulfate HFA 108 (90 Base) MCG/ACT inhalerIndica tions:Frequen t episodes of bronchitis Inhale 1 puff into the lungs 4 (four) times daily. 18 g 2 08/25/2 025 Active levothyroxine (SYNTHROID) 150 MCG tabletIndicat ions:Thyroid disorder TAKE 1 TABLET(150 MCG) BY MOUTH EVERY MORNING 90 tablet Active atorvastatin (LIPITOR) 20 MG tabletIndicat ions:Atherosc lerosis of [place] coronary artery of [place] heart without angina pectoris TAKE 1 TABLET(20 MG) BY MOUTH EVERY NIGHT AT BEDTIME 90 tablet 3 Active budesonide-fo rmoterol (SYMBICORT) 160-4.5 MCG/ACT inhalerIndica tions:Frequen t episodes of bronchitis Inhale 2 puffs into the lungs 2 (two) times daily. 10.2 g 11 Active varenicline, starter pack, (CHANTIX STARTING MONTH ) 0.5 MG X 11 & 1 MG X 42 tabletIndicat ions:Cigarett e nicotine dependence with nicotine-yohan malgorzata disorder Use as directed 53 each Active atorvastatin (LIPITOR) 20 MG tabletIndicat ions:Atherosc lerosis of [place] coronary artery of [place] heart without angina pectoris TAKE 1 TABLET(20 MG) BY MOUTH EVERY NIGHT AT BEDTIME 90 tablet 3 024 2024 Discontinued levothyroxine (SYNTHROID) 150 MCG tabletIndicat ions:Thyroid disorder TAKE 1 TABLET(150 MCG) BY MOUTH EVERY MORNING 90 tablet 025 2024 Discontinued budesonide-fo rmoterol (SYMBICORT) 160-4.5 MCG/ACT inhalerIndica tions:Frequen t episodes of bronchitis Inhale 2 puffs into the lungs 2 (two) times daily. 10.2 g 11 025 2024 Discontinued(R eorder) cefdinir (OMNICEF) 300 MG Cap capsuleIndica tions:Subacut e cough Take 2 capsules (600 mg total) by mouth daily. 20 capsule 025 2024 Discontinued(T herapy completed) Active Problems Problem Noted Date Diagnosed Date Urticaria 01/10/2025 Gastroesophageal reflux dise ase, unspecified whether esophagitis present 04/08/2024 Hepatic steatosis 04/08/2024 S/P cholecystectomy 11/25/2021 Unspecified abdominal pain 08/03/2021 Overview (08/03/2021): Added automatically from request for surgery [id number] Encounter for insertion of c opper intrauterine contraceptive device (IUD) 08/28/2018 Cyst of ovary 08/22/2018 Disorder of uterus 08/22/2018 Pelvic and perineal pain 08/21/2018 Dyslipidemia 08/16/2018 Gastroesophageal reflux dise ase, esophagitis presence not specified 08/01/2018 Influenza 07/03/2018 Abnormal finding on lung imaging 05/02/2018 Atherosclerosis of coronary artery 03/13/2018 Nicotine dependence 12/08/2014 Abnormal electrocardiogram 05/01/2013 Chest wall pain 05/01/2013 Hypothyroidism 02/05/2013 Resolved Problems Problem Noted Date Diagnosed Date Resolved Date Lung nodule 05/02/2018 08/01/2018 Encounters Date Type Department Care Team Description 03/12/2025 Attensityhart Message Enc [facility] [address] [place] [address] Erin Alston, LISETTE Cough 03/10/2025 9:45 AM CDT - 03/10/2025 11:59 PM CDT Hospital Encounter [facility] [address] [place] [address] Erin Alston, NURSERY HELPER Discharge Disposition: Home or Self Care (Routine Discharge) 03/10/2025 Travel 03/04/2025 10:00 AM CDT Office Visit [facility] [address] [place] [address] Erin Alston, NURSERY HELPER Cough (Coughing again with yellow phlegm. States it is keeping her up at night. Denies SOB. She has been taking Claritin once a day. Tessalon doesn't help. Discuss scarring that showed up on last chest xray.) 03/04/2025 Travel 02/27/2025 Telephone [facility] [address] [place] [address] Yvonne Garcia, RN Schedule Surgery 02/25/2025 11:59 PM CDT Anesthesia Event [facility] Surgery [address] [place] [address] Kingston Sutton MD 02/17/2025 MyChart Message Enc [facility] [address] [place] [phone] Erin Alston NP Cough 01/27/2025 Telephone [facility] on [facility], [address] [address] Gege Araujo RN Concerns 01/24/2025 Telephone [facility] - [address], [address] [place] [phone] Eagle Page MD Prior Authorization ([id number]) 01/21/2025 10:40 AM CDT Office Visit [facility] [address] [place] [phone] Erin Alston NP Cough (Due for Annual PX 01/29/25. Saw Dr. Unger this morning had an EKG. Productive cough with yellowish phlegm. ); Enlarged Lymph Nodes (RT. Side jaw line/neck tenderness and swelling); Rib Pain (LT. Side from coughing); Mouth Sores (Upper lip cold sore? ) 01/21/2025 10:00 AM CDT [facility], [address] [address] Katy Unger MD Coronary Artery Disease (6 mo follow up) 01/21/2025 Travel 01/08/2025 Results Follow-Up [facility] [address] [place] [phone] Erin Alston NP XR CHEST PA+LAT 01/07/2025 12:20 PM CDT Office Visit [facility] [address] [place] [address] Erin Alston, NURSERY HELPER Cough (Coughing since 11/22/24, when she had bronchitis. Has not picked up the Benzonatate.) 01/07/2025 Scan HEALTH INFO [facility] Scanned, [facility] 01/07/2025 Travel 01/07/2025 MyChart Message [facility] - [place] [address] [place] [address] Erin Alston, NURSERY HELPER Cough from Last 3 Months Immunizations Immunization Administration Dates Next Due Hepatitis B 05/03/2012 Tdap (Generic) 11/20/2020,05/03/2012 Family History Medical History Relation Comments Arthritis Daughter CABG Father Diabetes Father Liver Disease Father Valve Disease Father ND Maternal Grandfather None Mother Cancer Sister Relation Status Comments Daughter Alive Father (Age 65) Maternal Grandfather (Age 57) Mother Alive Sister (Age 49) Social History Tobacco Use Types Packs/Day Years Used Date Smoking Tobacco: Every Day Cigarettes 1 32.8 Started: 1992 Passive Smoke Exposure: Current Smokeless Tobacco: Never Tobacco Cessation:Ready to Q uit: No; Counseling Given: Yes Alcohol Use Standard Drinks/Week Comments Not Currently 0 (1 standard drink = 0.6 oz pur e alcohol) weekends-ing season AUDIT-C Answer Date Recorded Frequency of Alcohol Consumption Monthly or less 11/07/2018 Average Number of Drinks Not on file 019 Frequency of Binge Drinking Not on file 10/20 PHQ-2 Answer Date Recorded Patient Health Questionnaire-2 Score 0 04/08/2024 Comments No Sex and Gender Information Value Date Recorded Sex Assigned at Female 07/19/2024 9:18 AM WELDING MACHINE OPERATOR HELPER GAS Legal Sex Female 1:37 AM CDT Gender Identity Not on file Sexual Orientation Not on file Last Filed Vital Signs Vital Sign Reading Time Taken Comments Blood Pressure 141/87 03/04/2025 9:51 AM CDT Pulse 83 03/04/2025 9:51 AM CDT Temperature 36.8 C (98.3 F) 03/04/2025 9:51 AM CDT Respiratory Rate 18 03/04/2025 9:51 AM CDT Oxygen Saturation 98% 03/04/2025 9:51 AM CDT Inhaled Oxygen Concentration - - Weight 99.3 kg (219 lb) 03/04/2025 9:51 AM CDT Height 172.7 cm (5' 8) 03/04/2025 9:51 AM CDT Body Mass Index 33.3 03/04/2025 9:51 AM CDT Plan of Treatment Upcoming Encounters Date Type Department Care Team (Late st Contact Info) Description 07/22/2025 10:45 AM WELDING MACHINE OPERATOR HELPER GAS Office Visit [facility], [address] [place] [address] Inge Farr NP-C [facility]. [address] [place], [place] [id number] Health Maintenance Due Date Last Done Comments Hepatitis C 11/09/1993 Hepatitis A Vaccines (1 of 2 - Risk 2-dose series) 11/09/1994 Pneumococcal Vaccine: Pediatrics (0 to 5 Years) and At-Risk Patients (6 to 49 Years) (1 of 2 - PCV) 11/09/1994 Hepatitis B Vaccines (2 of 3 - 19+ 3-dose series) 05/31/2012 05/03/2012 PHQ-2 (Physician [place]) 05/22/2024 04/08/2024 COVID-19 Vaccine ( - season) 2025 ASCVD LDL 01/29/2025 01/30/2024, 11/20, 01/16/2023, Additional history exists Annual Physical 01/29/2025 01/30/2024, 06/23, 06/28/2021, Additional history exists Influenza Adult (#1) 2025 Mammogram Screening 09/04/2025 09/05/2023, 09/16/2022, 05/19/2021, Additional history exists Cervical Cancer Screening Pap with HPV Testing (Age 30 to 64) Every 5 Years 12/29/2025 12/29/2020 Cervical Cancer Screening Pap Smear (Age 30 to 64) Every 3 Years 09/24/2026 09/25/2023, 09/15/2022, 12/03/2020 Cervical Cancer Screening with HPV 09/24/2026 Colorectal Cancer Screening Colonoscopy (10 Years) 09/22/2030 09/22/2020 DTaP, Tdap and Td Vaccines (3 - Td or Tdap) 11/20/2030 11/20/2020, 05/03/2012 Meningococcal B Vaccine Aged Out No l onger eligible based on patient's age to complete this topic Meningococcal Vaccine Aged Out No sheryl nisha eligible based on patient's age to complete this topic RSV Immunizations Under 20 Months Aged Out No longer eligible based on patient's age to complete this topic Goals Goal Patient Goal Type Associated Problems Recent Progress Patient-Stated? Author Health - patient able to perform ADLs independently General No Cheri Garrett, doctorate of chiropractic Procedure Name Priority Date/Time Associated Diagnosis Comments ELECTROCARDIOGRAM (NON MIDMARK ACQUIRED) Routine 01/21/2025 10:06 AM CDT Atherosclerosis of [place] coronary artery of [place] heart with angina pectoris XR CHEST PA+LAT Routine 01/07/2025 1:16 PM CDT Acute cough LIPID PANEL Routine 01/30/2024 11:06 AM CDT Healthcare maintenance Screening for hyperlipidemia MAMMOGRAM GENERIC (SCAN ORDER) 09/05/2023 OUTSIDE CYTOPATH CERV/VAG INTERPRET (PAP) 12/29/2020 COLONOSCOPY GENERIC (SCAN ORDER) 09/22/2020 from Last 3 Months or Most Recently Relevant to Health Maintenance Results * ELECTROCARDIOGRAM (01/21/2025 10:06 AM CDT) 01/21/2025 10:0 6 AM CDT Narrative [facility] - 01/25/2025 7:45 AM CDT [facility], Dorene [place] Test Date: 2025-01-21 Pat Name: HARMONY KHAN Department: 112 Room: Gender: Female Patient Safety Manager: : 1975 Requested By: KATY UNGER Order Number: [id number] Jayshree MD: Candido Mitchell Measurements Intervals [place] Rate: 77 P: 61 AR: 142 QRS: 59 QRSD: 93 T: 69 QT: 386 QTc: 438 Interpretive Statements SINUS RHYTHM NONSPECIFIC T-WAVE ABNORMALITY Since prior tracing, T wave abnormality now present Procedure Note Candido [place] MD - 01/25/2025 [facility], [facility] [place] Test Date: 2025-01-21 Pat Name: HARMONY KHAN Department: 112 Room: Gender: Female Patient Safety Manager: : 1975 Requested By: KATY UNGER Order Number: [id number] Reading MD: Candido Mitchell Measurements Intervals [place] Rate: 77 P: 61 AR: 142 QRS: 59 QRSD: 93 T: 69 QT: 386 QTc: 438 Interpretive Statements SINUS RHYTHM NONSPECIFIC T-WAVE ABNORMALITY Since prior tracing, T wave abnormality now present us Katy Unger MD PROCEDURES-ORDERABLE NO CHARGE Final Result [facility] * XR CHEST PA+LAT (01/07/2025 1:16 PM CDT) Anatomical Region Laterality Modality Chest Radiographic Dora ging 01/07/2025 1:21 PM CDT Impressions 01/07/2025 1:53 PM CDT IMPRESSION: 1. There is no acute cardiopulmonary process. The attending radiologist has reviewed the image(s) and agrees with the content of this report. Ordered By: ERIN ALSTON Interpreted By: Stephen King MD, 01/07/2025 1:21 PM Narrative 01/07/2025 1:53 PM CDT PROCEDURE: XR CHEST PA+LAT. 01/07/2025 1:15 PM. TECHNIQUE: 2 views (PA and Lateral) of the chest were performed. HISTORY: Cough COMPARISON: Chest x-ray 02/06/2024 FINDINGS: Support Devices: None. Cardiac Silhouette/Mediastinum/Amaya: The cardiac, mediastinal, and hilar contours are within normal limits for age. Lungs/Pleural Spaces: The lungs and pleural spaces are clear. Sequela of prior granulomatous disease. Chest Wall/Diaphragm/Upper Abdomen: Cholecystectomy clips. Procedure Note Robert Wylie MD - 01/07/2025 PROCEDURE: XR CHEST PA+LAT. 01/07/2025 1:15 PM. TECHNIQUE: 2 views (PA and Lateral) of the chest were performed. HISTORY: Cough COMPARISON: Chest x-ray 02/06/2024 FINDINGS: Support Devices: None. Cardiac Silhouette/Mediastinum/Amaya: The cardiac, mediastinal, and hilarcontours are within normal limits for age. Lungs/Pleural Spaces: The lungs and pleural spaces are clear. Sequela ofprior granulomatous disease. Chest Wall/Diaphragm/Upper Abdomen: Cholecystectomy clips. IMPRESSION: 1. There is no acute cardiopulmonary process. The attending radiologist has reviewed the image(s) and agrees with thecontent of this report. Ordered By: ERIN ALSTON Interpreted By: Stephen King MD, 01/07/2025 1:21 PM Erin Alston GENERAL IMAGING Final Result * (ABNORMAL) LIPID PANEL (01/30/2024 11:06 AM CDT) CHOLESTEROL 116 <200 MG/DL 01/31/2024 11:13 AM CDT [facility] TRIGLYCERIDES 112 <150 MG/DL 01/31/2024 11:13 AM CDT [facility] HDL 33(L) >40 MG/DL 01/31/2024 11:13 AM CDT [facility] LDL-C 61 <100 MG/DL 01/31/2024 11:13 AM CDT [facility] VLDL CALCULATION 22 5 - 28 MG/DL 01/31/2024 11:13 AM CDT [facility] CHOL/HDL RATIO 3.5 0.0 - 4.0 01/31/2024 11:13 AM CDT [facility] LDL/HDL 1.8 0.41 - 2.13 01/31/2024 11:13 AM CDT [facility] [place] NON HDL CHOLESTEROL 83 <140 MG/DL 01/31/2024 11:13 AM CDT [facility] [place] 01/30/2024 11:0 6 AM CDT us Lupe Avila [facility] Final Result [facility] [place] [address] [place] [address], * MAMMOGRAM GENERIC (SCAN ORDER) (09/05/2023) Anatomical Region Laterality Modality Other 09/05/2023 [facility] Scanned SCANNING Final Resu lt * PAP SMEAR WITH HPV (12/29/2020) 12/29/2020 Narrative 12/29/2020 Ordered by an unspecified provider. Documents Scanned SCANNING Final Result * COLONOSCOPY GENERIC (09/22/2020) 09/22/2020 [facility] Scanned SCANNING Final Resu lt from Last 3 Months or Most Recently Relevant to Health Maintenance Additional Health Concerns Infection Onset Date Last Indicated MRSA Comment:11/23/21 jing ([place]) 11/24/2021 11/24/2021 Insurance [place] [employer] Advance Directives * Full Code (Latest Code Status on File) Date Activated Date Inactivated Comments 11/26/2021 2:13 AM 11/26/2021 2:30 PM Care Teams Supervisor Model Making Relationship Specialty Start Date End Date Erin Alston NP PCP - General 09/10/16 Katy Unger MD [facility]. [address] [address] [employer] Nut Sorter Operator CARDIOVASCULAR DISEASE 03/23/18
--- NOTE | 2025-03-17 08:27 | ED.HA ---
HPI - Headache General Chief Complaint: Headache Stated Complaint: I feel awful cough, headache, body aches Time Seen by Provider: 03/17/25 08:16 Source: patient, RN notes reviewed and old records reviewed Mode of arrival: ambulatory Limitations: no limitations History of Present Illness HPI Narrative: THis is a 49 year old female who presents for evaluation of a headache. Patient reports frontal headache since yesterday. She reports headache is throbbing and worse with coughing. She also reports body aches, sinus pressure, and a cough. She states she has had bad cough for 3 months and her PCP is working her up. She is pending CT chest. She took ibuprofen 400 mg 1 hour ago and her pain is 7/10. She denies sore throat, runny nose, neck pain, fever. She states before taking ibuprofen her pain was 10/10. Related Data Home Medications ?Medication ?Instructions ?Recorded ?Confirmed ?Last Taken ?Type aspirin 81 mg chewable tablet 81 mg PO DAILY 04/02/19 01/10/24 Unknown History atorvastatin 10 mg tablet 10 mg PO DAILY 04/02/19 01/10/24 Unknown History levothyroxine 150 mcg tablet 150 mcg PO DAILY 11/20/20 01/10/24 Unknown History nitroglycerin 0.4 mg sublingual 0.4 mg sublingual DIRECTED 01/10/24 01/10/24 Unknown History tablet loratadine 10 mg tablet mg 11/26/24 Unknown History Allergies Allergy/AdvReac Type Severity Reaction Status Date / Time indomethacin Allergy Unknown RASH Verified 03/17/25 08:18 Review of Systems Constitutional: Constitutional: Denies fever(s) Cardiovascular: Cardiovascular: Denies chest pain Respiratory: Respiratory: Reports cough Gastrointestinal: Gastrointestinal: Reports nausea Neurologic: Reports headache(s) PMFSH Past Medical History Medical History Reactive airway disease High cholesterol Hypothyroidism Social History Social History Smoking status: Current every day smoker Tobacco type: cigarettes Gender identity (if verbalized by the patient): Female Exam Const: General: healthy appearing and no acute distress Nutritional Appearance: well nourished Orientation/consciousness: patient oriented x3 Limitations: no limitations HENMT: Head: normal to inspection Ears: external ears normal and TM's normal bilaterally Face/Nose/Sinus: Normal external nose present Face and sinus: normal facial exam and sinuses nontender Mouth: Yes Normal oral and palatal mucosa present Throat: posterior oropharynx normal Eyes: Conjunctivae: conjunctivae normal Pupils: Equal, round and reactive pupils present EOM: EOMs intact bilaterally Neck: Neck: normal visual inspection, no lymphadenopathy and no meningeal signs Resp: Effort & Inspection: normal respiratory effort Auscultation: clear to auscultation bilaterally Cardio: Rate: tachycardic Rhythm: regular rhythm Heart sounds: no murmurs GI: GI Palp: Yes Soft to palpation, No Tenderness to palpation present (GI), No Guarding due to palpation present (GI) and No Rigid due to palpation Auscultation: normal bowel sounds Skin: General skin exam: normal color Rashes: no rashes Neuro: General: patient oriented x3, moves all extremities and CN's II-XI intact bilaterally Extrem: General: normal to inspection Psych: Mental Status: mental status grossly normal Affect: normal affect Attitude: cooperative Course Reevaluation(s) Reevaluation #1: Patient states that her headache is almost completely resolved. REports pain 07/01. I reviewed labs and CT are unremarkable. She does not have signs of meningitis. She reports headache started gradually over past 12 hours and it was sudden onset severe. We discussed CT brain negative for SAH and 90% sensitive. I Reviewed option of LP to completely rule and she declines . She understands return precautions and she will return if headache worsens Date: 03/17/25 Time: 11:25 Vital Signs Vital signs: Vital Signs Temperature 97.9 F 03/17/25 08:19 Pulse Rate 94 03/17/25 08:19 Respiratory Rate 16 03/17/25 08:19 Blood Pressure 133/95 H 03/17/25 08:19 Pulse Oximetry 97 03/17/25 08:19 Oxygen Delivery Room Air 03/17/25 08:19 Temperature 98.0 F 03/17/25 12:02 Pulse Rate 81 03/17/25 12:02 Respiratory Rate 15 03/17/25 12:02 Blood Pressure 132/80 03/17/25 12:02 Pulse Oximetry 98 03/17/25 12:02 Oxygen Delivery Room Air 03/17/25 08:19 MDM - Headache MDM Narrative Medical decision making narrative: Patient presents with frontal headache likely tension vs sinus headache. labs and viral studies ordered. I ordered 1 liter fluid bolus, compazine 10 mg IV and Toradol 30 mg IV. She reports pain is much better. PAtient does not have meningmus signs of meningitis. CT brain done since patient reports she had 10/10 headache during this headache course. I think sAH is unlikely but I discussed option to do LP with patient who declines at this time. HEadache likely tension. Differential Diagnosis Differential diagnosis: Likely migraine, tension headache, subarachnoid hemorrhage, headache, meningitis and sinusitis Lab Data Attestation: I reviewed the patient's lab results. 03/17/25 08:43 03/17/25 08:43 Labs: Lab Results 03/17/25 03/17/25 Range/Units 08:43 08:44 WBC 9.9 (4.5-10.0) K/mm3 RBC 4.83 (4.2-5.4) M/mm3 Hgb 15.4 H (12.0-15.0) g/dL Hct 44.9 (37.0-47.0) % MCV 93.0 (80-100) fl MCH 31.9 (26-34) pg MCHC 34.3 (32-36) g/dl RDW 12.1 (11.5-14.5) % Plt Count 217 (150-375) k/mm3 MPV 8.9 (7.4-10.4) fl Immature Gran % (Auto) 0.5 (0-0.5) % Neut % (Auto) 65.9 (45.5-73.1) % Lymph % (Auto) 27.4 (18.3-44.2) % [place] % (Auto) 4.3 (2.6-8.5) % Eos % (Auto) 1.4 (0-4.4) % Baso % (Auto) 0.5 (0.2-1.2) % Lymph # (Auto) 2.70 (0.9-3.2) K/mm3 [place] # (Auto) 0.4 (0.1-0.6) K/mm3 Eos # (Auto) 0.1 (0-0.3) K/mm3 Baso # (Auto) 0.1 (0.0-0.1) K/mm3 Abs Immat Gran (auto) 0.05 H (0.00-0.031) K/mm3 Absolute Neuts (auto) 6.5 (1.3-6.7) K/mm3 Absolute Nucleated RBC 0.000 (0.0-0.012) K/mm3 Nucleated RBC % 0.0 (0.0-0.2) % PT 13.1 (11.1-14.7) Seconds INR 1.0 APTT 30.9 (22.3-36.8) Seconds Sodium 135 L (137-145) mmol/L Potassium 4.1 (3.4-5.0) mmol/L Chloride 104 (98-107) mmol/L Carbon Dioxide 22 (22-30) mmol/L Anion Gap 9 (4-12) mmol/L BUN 11 (7-17) mg/dL Creatinine 0.77 (0.7-1.0) mg/dL Estim Creat Clear Calc 94 ml/min Estimated GFR > 60 (59 - ) Glucose 104 (65-110) mg/dL Calcium 10.2 (8.4-10.2) mg/dL Total Bilirubin 1.1 (0.2-1.3) mg/dL AST 32 (14-36) U/L ALT 45 H (6-35) U/L Alkaline Phosphatase 113 (38-126) U/L Total Protein 7.8 (6.3-8.2) g/dL Albumin 4.5 (3.5-5.1) g/dL Influenza A (RT-PCR) Negative (Negative) Influenza B (RT-PCR) Negative (Negative) RSV (RT-PCR) Negative (Negative) SARS-CoV-2 RNA (RT-PCR) Negative (Negative) Imaging Data Radiologist's impression: ITS Impressions Head CT 03/17/25 10:18 Impression: 1.No acute intracranial abnormality. Discharge Plan Discharge Clinical Impression: Acute headache Qualifiers: Intractability: not intractable Patient Disposition: Home Condition: Stable Instructions: Acute Headache (ED) Additional Instructions: Stay hydrated. Get plenty of rest. REturn to ER if symptoms worsen Patient Language: Slovak Prescriptions: New mioexqvbqn-yqoqgizfyuahy-dbtf [Fioricet] 50-300-40 mg capsule 1 cap PO Q6H PRN (Reason: pain) Qty: 14 0RF No Action atorvastatin 10 mg tablet 10 mg PO DAILY aspirin 81 mg Tablet,Chewable 81 mg PO DAILY nitroglycerin 0.4 mg tablet, sublingual 0.4 mg sublingual DIRECTED loratadine 10 mg tablet albuterol sulfate 90 mcg/actuation HFA aerosol inhaler 2 puff inhalation QID PRN (Reason: shortness of breath or wheezing) Qty: 6.7 0RF (DME) Aerochamber MV Spacer See Rx Instructions .Route Qty: 1 0RF Rx Instructions: As directed prednisone 20 mg tablet 40 mg PO DAILY 5 Days Qty: 10 0RF amoxicillin-pot clavulanate 875-125 mg tablet 1 tablet PO Q12H 7 Days Qty: 14 0RF levothyroxine 150 mcg tablet 150 mcg PO DAILY Follow-up/Referrals: Gamaliel,Erin Butts DENTAL ASSISTANT TEACHER [Primary Care Provider, Unknown]
[2025-03-17 08:52] LABS: Hematocrit 44.9 % (37.0-47.0); Hemoglobin 15.4 g/dL (12.0-15.0); Immature Granulocyte Percent A 0.5 % (0-0.5); Lymphocytes Absolute Auto 2.70 K/mm3 (0.9-3.2); Mean Corpuscular HGB Conc 34.3 g/dl (32-36); Mean Corpuscular Hemoglobin 31.9 pg (26-34); Mean Corpuscular Volume 93.0 fl (80-100); Nucleated Red Blood Cells Absolute Auto 0.000 K/mm3 (0.0-0.012); Nucleated Red Blood Cells Perc 0.0 % (0.0-0.2); Platelet Count Result 217 k/mm3 (150-375); Red Blood Count 4.83 M/mm3 (4.2-5.4); White Blood Count 9.9 K/mm3 (4.5-10.0)
[2025-03-17] MEDS: PROCHLORPERAZINE EDISYLATE 10 MG/2 ML VIAL IV PUSH (08:59)
[2025-03-17 09:03] LABS: INR 1.0; Prothrombin Time 13.1 Seconds (11.1-14.7)
[2025-03-17 09:04] LABS: Partial Thromboplastin Time 30.9 Seconds (22.3-36.8)
[2025-03-17] MEDS: SODIUM CHLORIDE 0.9% IV 1,000 ML 999 ML IV CONT (09:11)
[2025-03-17 09:15] LABS: Alanine Aminotransferase 45 U/L (6-35); Albumin Level 4.5 g/dL (3.5-5.1); Alkaline Phosphatase 113 U/L (38-126); Anion Gap 9 mmol/L (4-12); Aspartate Amino Transferase 32 U/L (14-36); Bilirubin,Total 1.1 mg/dL (0.2-1.3); Blood Urea Nitrogen 11 mg/dL (7-17); Calcium 10.2 mg/dL (8.4-10.2); Carbon Dioxide 22 mmol/L (22-30); Chloride 104 mmol/L (98-107); Estimated CRCL calculation 94 ml/min; Estimated Glomerular Filt Rate > 60; Glucose 104 mg/dL (65-110); Potassium 4.1 mmol/L (3.4-5.0); Sodium 135 mmol/L (137-145); Total Protein 7.8 g/dL (6.3-8.2)
[2025-03-17 09:29] LABS: Influenza A QL RT-PCR Negative (Negative); Influenza B QL RT-PCR Negative (Negative); RSV RNA, RT-PCR Negative (Negative); SARS-CoV-2 RNA PCR Negative (Negative)
[2025-03-17] MEDS: KETOROLAC 30 MG/ML VIAL (*BKC) IV PUSH (10:33)
[2025-03-17 12:02] VITALS: BP 132/80; PULSE 81; RESP 15; TEMP 36.7; O2SAT 98
== END 2025-03-17 12:04 | disposition home or self-care (01) ==
PROVIDERS: Emergency Provider General Practice; PCP Nurse Practitioner Family
DX: R51.9 Headache, unspecified (principal); Z20.822 Contact with and (suspected) exposure to COVID-19; E78.00 Pure hypercholesterolemia, unspecified; E03.9 Hypothyroidism, unspecified; J45.909 Unspecified asthma, uncomplicated; F17.210 Nicotine dependence, cigarettes, uncomplicated
CPT/HCPCS: 36415; 70450; 80053; 85025; 85610; 85730; 87637; 96361; 96374; 96375; 99284; J0780; J1200; J1885; J7030